=== PATIENT | female | born 1955 | race Hispanic/Latino ===

== ENCOUNTER 2016-10-10 07:21 | Emergency (ER) | payer SELFPAY ==
[2016-10-10 07:44] VITALS: TEMP 97.3
--- NOTE | 2016-10-10 07:48 | ED.PDOC ---
History of Present Illness - General Chief Complaint: GI Problem Stated Complaint: N/V/D Time Seen by Provider: 10/10/16 07:47 Information Source: patient, Vital Signs reviewed Exam Limitations: no limitations - History of Present Illness Initial Comments: Caity Villagran 61 y/o female stated that she had nausea,vomiting ,diarrhea starting 4 days ago and no longer having vomiting today Abdominal Pain Onset Location: other - no abdominal pain Pain Radiation: no radiation Quality: other - no abdominal pain Timing/Duration: other - 4 days ago Associated Symptoms: diarrhea, nausea/vomiting Review of Systems - Review of Systems Constitutional: States: no symptoms reported EENTM: States: no symptoms reported Respiratory: States: no symptoms reported Cardiology: States: no symptoms reported Gastrointestinal/Abdominal: States: see HPI Genitourinary: States: no symptoms reported Musculoskeletal: States: no symptoms reported Skin: States: no symptoms reported Neurological: States: no symptoms reported Endocrine: States: no symptoms reported Hematologic/Lymphatic: States: no symptoms reported Past Medical History (General) - Patient Medical History Hx Seizures: No Hx Stroke: No Hx Dementia: No Hx Asthma: Yes Hx of COPD: No Hx Cardiac Disorders: Yes - TN,quadruple bypass Hx Congestive Heart Failure: No Hx Pacemaker: No Hx Hypertension: Yes Hx Thyroid Disease: No Hx Diabetes: Yes Hx Gastroesophageal Reflux: Yes Hx Cancer: No Hx of HIV: No Hx Hepatitis C: No Hx MRSA: No Surgical History: coronary bypass surgery, other - c- section - Vaccination History Hx Tetanus, Diphtheria Vaccination: No Hx Influenza Vaccination: No - never takes Hx Pneumococcal Vaccination: No - Social History Hx Tobacco Use: No Hx Alcohol Use: No Hx Substance Use: No Hx Substance Use Treatment: No Hx Depression: No Hx Physical Abuse: No Hx Emotional Abuse: No - Activities of Daily Living Grooming Ability: Independent Eating (Feeding) Ability: Independent Toileting Ability: Independent - Female History Patient : No Family Medical History - Family History Mother Family History: Unknown Living Status: Hx Family Hypertension: Yes Hx Family Stroke: Yes Hx Family Diabetes: Yes - several family members Hx Family Cancer: Yes - liver,lymphoma,breast-several family members Father Living Status: Hx Family Hypertension: Yes Hx Family Diabetes: Yes Physical Exam - Physical Exam General Appearance: Alert, Comfortable, No apparent distress Eyes, Ears, Nose, Throat Exam: PERRL/EOMI, normal ENT inspection, TMs normal, pharynx normal Neck: non-tender, full range of motion, supple, normal inspection Respiratory: chest non-tender, lungs clear, normal breath sounds, no respiratory distress Cardiovascular/Chest: normal peripheral pulses, regular rate, rhythm, no murmur Peripheral Pulses: No deficit Gastrointestinal/Abdominal: normal bowel sounds, non tender, soft, no organomegaly Back Exam: normal inspection, no CVA tenderness, no vertebral tenderness Extremity: normal range of motion, non-tender, normal inspection, no calf tenderness Neurologic: no motor/sensory deficits, alert, normal mood/affect, oriented x 3 Skin Exam: normal color, warm/dry Lymphatic: no adenopathy Progress - Progress Progress: 10/10/16 08:18 Vital Signs - 8 hr 10/10/16 07:37 Temperature 97.3 F L Pulse Rate [LAC 73 ] Respiratory 20 Rate Blood Pressure 185/95 [LEFT BRACHIAL] O2 Sat by Pulse 98 Oximetry - Results/Orders Results/Orders: 10/10/16 07:49 IV Care:Saline Lock per Protoc QSHIFT Sodium Chloride 0.9% 1000ML [Ns 1000 ml] 1,000 ml IVS ONCE STOOL CULTURE Stat 10/10/16 08:00 EKG STAT Laboratory Results WBC 6.9 K/mm3 (4.8-10.8) 10/10/16 07:57 RBC 4.79 M/mm3 (4.20-5.40) 10/10/16 07:57 Hgb 13.3 gm/dL (12.0-16.0) 10/10/16 07:57 Hct 39.8 % (36.0-47.0) 10/10/16 07:57 MCV 83.2 fl (81.0-99.0) 10/10/16 07:57 MCH 27.7 pg (27.0-31.0) 10/10/16 07:57 MCHC 33.3 g/dL (33.0-37.0) 10/10/16 07:57 RDW 12.7 % (11.5-14.5) 10/10/16 07:57 Plt Count 230 K/mm3 (130-400) 10/10/16 07:57 MPV 9.1 fl (7.40-10.4) 10/10/16 07:57 Absolute Neuts (auto) 4.20 K/uL (1.8-6.8) 10/10/16 07:57 Absolute Lymphs (auto) 1.80 K/uL (1.0-3.4) 10/10/16 07:57 Absolute Monos (auto) 0.50 K/uL (0.2-0.8) 10/10/16 07:57 Absolute Eos (auto) 0.20 K/uL (0.0-0.4) 10/10/16 07:57 Absolute Basos (auto) 0.10 K/uL (0.0-0.1) 10/10/16 07:57 Neutrophils % 61.9 % (42.0-78.0) 10/10/16 07:57 Lymphocytes % 25.9 % (20.0-50.0) 10/10/16 07:57 Monocytes % 7.6 % (2.0-9.0) 10/10/16 07:57 Eosinophils % 3.2 % (1.0-5.0) 10/10/16 07:57 Basophils % 1.4 % (0.0-2.0) 10/10/16 07:57 PT 12.6 SECONDS (9.4-12.5) H 10/10/16 07:57 INR 1.120 10/10/16 07:57 Sodium 136 mmol/L (135-145) 10/10/16 07:57 Potassium 3.7 mmol/L (3.6-5.0) 10/10/16 07:57 Chloride 102 mmol/L (101-111) 10/10/16 07:57 Carbon Dioxide 26 mmol/L (21-31) 10/10/16 07:57 Anion Gap 11.7 (12-18) L 10/10/16 07:57 BUN 18 mg/dL (7-18) 10/10/16 07:57 Creatinine 0.47 mg/dL (0.6-1.3) L 10/10/16 07:57 BUN/Creatinine Ratio 38.3 (10-20) H 10/10/16 07:57 Random Glucose 287 mg/dL (70-105) H 10/10/16 07:57 Serum Osmolality 284.3 mOsm/L (275-295) 10/10/16 07:57 Calcium 9.3 mg/dL (8.4-10.2) 10/10/16 07:57 Total Bilirubin 0.9 mg/dL (0.2-1.0) 10/10/16 07:57 AST 20 IU/L (10-42) 10/10/16 07:57 ALT 18 IU/L (10-60) 10/10/16 07:57 Alkaline Phosphatase 73 IU/L (42-121) 10/10/16 07:57 Serum Total Protein 7.2 gm/dL (6.4-8.2) 10/10/16 07:57 Albumin 3.9 g/dl (3.2-5.5) 10/10/16 07:57 Globulin 3.3 gm/dL (2.3-3.5) 10/10/16 07:57 Albumin/Globulin Ratio 1.2 (1.1-1.9) 10/10/16 07:57 Urine Color Yellow (Yellow) 10/10/16 07:33 Urine Appearance Clear (Clear) 10/10/16 07:33 Urine pH 5.5 (4.5-7.8) 10/10/16 07:33 Ur Specific [place] 1.020 (1.005-1.030) 10/10/16 07:33 Urine Protein Negative mg/dL 10/10/16 07:33 Urine Glucose (UA) >=1000 mg/dL (Negative) H 10/10/16 07:33 Urine Ketones Negative mg/dL (NEGATIVE) 10/10/16 07:33 Urine Blood Trace-intact (Negative) H 10/10/16 07:33 Urine Nitrite Negative 10/10/16 07:33 Urine Bilirubin Negative (NEGATIVE) 10/10/16 07:33 Urine Urobilinogen 0.2 mg/dL (0.2-1.0) 10/10/16 07:33 Ur Leukocyte Esterase Negative (Negative) 10/10/16 07:33 Urine RBC 3-5 /hpf H 10/10/16 07:33 Urine WBC 5-10 /hpf H 10/10/16 07:33 Ur Epithelial Cells 3-5 /hpf 10/10/16 07:33 Urine Bacteria 0 10/10/16 07:33 - EKG/XRAY/CT EKG: Sinus, nonspecific ST T wave Chg Comments: heart rate-70;old infarct ant. wall Departure - Departure Clinical Impression: Diarrhea Nausea & vomiting Qualifiers: Vomiting type: unspecified Vomiting Intractability: non-intractable Qualified Code(s): R11.2 - Nausea with vomiting, unspecified Time of Disposition: 08:44 Disposition: Discharge to Home or Self Care Condition: Fair Departure Forms: ED Discharge - Pt. Copy, Patient Portal Self Enrollment Instructions: Diarrhea, DI for Nausea -- Adult, Probiotics May Decrease Intensity and Duration of Diarrhea Due to Infection, Nausea and Vomiting-Adult Diet: low fat, low cholesterol, other - AVOID GREASY ,SPICY,DAIRY FOODS UNTIL BETTER Referrals: Karol Moore NP [Primary Care Provider] - 1-2 Weeks Prescriptions: Promethazine Tab [Phenergan Tablet] 25 mg PO .Q4H PRN #14 tab PRN Reason: Abdominal Cramping Home Medications: Ambulatory Orders Metformin HCl 1,000 mg PO BID #0 07/10/14 PARoxetine HCL [Paxil] 20 mg PO DAILY 07/21/15 Carvedilol [Coreg] 12.5 mg PO BID 09/28/15 Lisinopril 2.5 mg PO DAILY 09/28/15 Warfarin Sodium [Coumadin] 5 mg PO DAILY 09/28/15 Aspirin [Aspirin Adult Low Dose] 81 mg PO DAILY 10/05/15 Ferrous Sulfate 650 mg PO BID 10/05/15 Human Insulin Aspart [Novolog] 5 unit SC AC 10/05/15 Insulin Detemir [Levemir] 28 unit SUBCU BEDTIME 10/05/15 Omeprazole [Prilosec] 40 mg PO DAILY 10/05/15 Promethazine Tab [Phenergan Tablet] 25 mg PO .Q4H PRN #14 tab 10/10/16 Additional Instructions: Return to emergency room as needed;Follow up with primary md 10/16/2016 Call for appointment
[2016-10-10] MEDS ORDERED: SODIUM CHLORIDE 0.9% 1000ML 1,000 ML IVS ONE (07:49)
[2016-10-10] MEDS ORDERED: KETOROLAC TROMETHAMINE INJ 30 MG/ML VIAL IV ONE (08:11)
[2016-10-10] MEDS ORDERED: ONDANSETRON INJ 4 MG/2 ML VIAL IV ONE (08:11)
[2016-10-10 08:30] VITALS: O2SAT 97
[2016-10-10] MEDS ORDERED: INSULIN, REG.(HUMAN) 100 U/ML VIAL IV ONE (08:36)
[2016-10-10 09:05] VITALS: BP 168/70
== END 2016-10-10 08:58 | disposition home or self-care (01) ==
LOC: ER 07:21
DX: R11.2 Nausea with vomiting, unspecified (principal); R19.7 Diarrhea, unspecified; I25.2 Old myocardial infarction; Z95.1 Presence of aortocoronary bypass graft; I10 Essential (primary) hypertension; E11.9 Type 2 diabetes mellitus without complications; K21.9 Gastro-esophageal reflux disease without esophagitis
CPT/HCPCS: 36415; 80053; 81001; 85025; 85610; 93005; J1885; J2405; J7030

== ENCOUNTER 2017-04-21 05:44 | Emergency (ER) | payer SELFPAY ==
[2017-04-21 06:36] VITALS: TEMP 97.2
--- NOTE | 2017-04-21 06:46 | ED.PDOC ---
History of Present Illness - General Source: patient Exam Limitations: no limitations - History of Present Illness Comments: THIS PATIENT COMES TO THE ED WITH A TWO WEEK HX OF NASAL AND CHEST CONGESTION ASSOCIATED WITH DYSPNEA AND A NON PRODUCTIVE COUGH. SHE HAS ALSO HAD SOME CHEST PRESSURE. TWO YEARS AGO SHE HAD A HEART ATTACK AND THEN HAD BYPASS SURGERY. 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 Timing/Duration: week Cough Quality/Degree: dry cough Possible Cause: no prior episodes Improving Factors: nothing Worsening Factors: nothing Associated Symptoms: denies symptoms Respiratory Risk Factors: no cause identified <Rodriguez Alejandro - Last Filed: 04/21/17 06:39> <Teto Jarquin - Last Filed: 04/21/17 08:21> - General Chief Complaint: Respiratory Problem Stated Complaint: cough congestion x 1 week Time Seen by Provider: 04/21/17 06:38 - History of Present Illness Allergies/Adverse Reactions: Allergies NO KNOWN ALLERGY Allergy (Verified 04/21/17 06:12) Home Medications: Ambulatory Orders Metformin HCl 1,000 mg PO BID #0 07/10/14 PARoxetine HCL [Paxil] 20 mg PO DAILY 07/21/15 Carvedilol [Coreg] 12.5 mg PO BID 09/28/15 Lisinopril 2.5 mg PO DAILY 09/28/15 Warfarin Sodium [Coumadin] 5 mg PO DAILY 09/28/15 Aspirin [Aspirin Adult Low Dose] 81 mg PO DAILY 10/05/15 Ferrous Sulfate 650 mg PO BID 10/05/15 Human Insulin Aspart [Novolog] 5 unit SC AC 10/05/15 Insulin Detemir [Levemir] 28 unit SUBCU BEDTIME 10/05/15 Omeprazole [Prilosec] 40 mg PO DAILY 10/05/15 Promethazine Tab [Phenergan Tablet] 25 mg PO .Q4H PRN #14 tab 10/10/16 Review of Systems - Review of Systems Constitutional: States: malaise EENTM: States: nose congestion Respiratory: States: cough, short of breath Cardiology: States: chest pain Gastrointestinal/Abdominal: States: no symptoms reported Genitourinary: States: no symptoms reported Musculoskeletal: States: no symptoms reported Skin: States: no symptoms reported Neurological: States: no symptoms reported Endocrine: States: no symptoms reported Hematologic/Lymphatic: States: no symptoms reported All other Systems: Reviewed and Negative <Rodriguez Alejandro - Last Filed: 04/21/17 06:39> Past Medical History (General) - Patient Medical History Hx Seizures: Yes Hx Stroke: No Hx Dementia: No Hx Asthma: Yes Hx of COPD: No Hx Cardiac Disorders: Yes Hx Congestive Heart Failure: No Hx Pacemaker: No Hx Hypertension: Yes Hx Thyroid Disease: No Hx Diabetes: Yes Hx Gastroesophageal Reflux: No Hx Renal Disease: No Hx Cancer: No Hx of HIV: No Hx Hepatitis C: No Hx MRSA: No Surgical History: coronary bypass surgery, Hysterectomy, other - Vaccination History Hx Tetanus, Diphtheria Vaccination: No Hx Influenza Vaccination: No Hx Pneumococcal Vaccination: No - Social History Hx Tobacco Use: No Hx Alcohol Use: No Hx Substance Use: No Hx Substance Use Treatment: No Hx Depression: No Hx Physical Abuse: No Hx Emotional Abuse: No - Female History Patient : No - Triage Comment ED Triage Comment: Presents to Er -=-POV--AMB-- C/O cough, congestion, NPC, and sinus problems x 1 week. States has had 4 watery stools in last 8 hours also. States feels pressure to chest. <Rodriguez Alejandro - Last Filed: 04/21/17 06:39> Family Medical History - Family History Mother Family History: Unknown Living Status: Hx Family Hypertension: Yes Hx Family Stroke: Yes Hx Family Diabetes: Yes - several family members Hx Family Cancer: Yes - liver,lymphoma,breast-several family members Father Living Status: Hx Family Hypertension: Yes Hx Family Diabetes: Yes <Rodriguez Alejandro - Last Filed: 04/21/17 06:39> Physical Exam - Physical Exam General Appearance: Alert, Anxious, Well Developed, Well Groomed Eye Exam: bilateral normal ENT Exam: normal ENT inspection, hearing grossly normal, pharynx normal Neck: non-tender, full range of motion, supple, normal inspection Respiratory: lungs clear, normal breath sounds, no respiratory distress, no accessory muscle use Cardiovascular/Chest: normal peripheral pulses, no edema, no gallop, no JVD, no murmur Gastrointestinal/Abdominal: normal bowel sounds, non tender, no organomegaly, no pulsatile mass Extremity: normal range of motion, non-tender, normal inspection, no pedal edema , no calf tenderness Neurologic: no motor/sensory deficits, normal mood/affect, oriented x 3 Skin Exam: normal color, warm/dry Lymphatic: no adenopathy <JavonRodriguez davidson - Last Filed: 04/21/17 06:39> Progress - Results/Orders Results/Orders: HR OF 65, TN INTERVAL OF 162, QRS OF 100, QTC OF 434, AXIS OF 20 DEGREES. IMPRESSION: SINUS RHYTHM, EVIDENCE OF AN INFERIOR AND AND ANTERIOR WALL NV, AGE UNDETERMINED. <JavonRodriguez davidson - Last Filed: 04/21/17 06:39> - Progress Progress: 04/21/17 08:19 The patient is a 62-year-old female presenting to the emergency room with a week 's worth of symptoms of cough and congestion. The patient is no longer taking her Coumadin. No fevers. Mostly runny nose and a mild sore throat and a mild clearing cough. No history of any asthma. Her main concern is for pneumonia. There is no evidence of pneumonia on the x-ray. Flu swab is negative. Lab work otherwise looks reassuring besides mild hyperglycemia. The patient is stable at this time. Tylenol and Motrin can be alternated to control symptoms along with some Mucinex as needed. She needs to keep herself well-hydrated. She should follow up with her primary care doctor early next week. Diagnosis is common cold. <Teto Jarquin - Last Filed: 04/21/17 08:21> Departure <JavonRodriguez - Last Filed: 04/21/17 06:39> - Departure Diet: diabetic diet Activity: increase activity as tolerated <Teto Jarquin - Last Filed: 04/21/17 08:21> - Departure Clinical Impression: Common cold Disposition: Discharge to Home or Self Care Condition: Good Departure Forms: ED Discharge - Pt. Copy, Patient Portal Self Enrollment Instructions: DI for Common Cold Referrals: Karol Moore NP [Primary Care Provider] - 1-5 Days Home Medications: Ambulatory Orders Metformin HCl 1,000 mg PO BID #0 07/10/14 PARoxetine HCL [Paxil] 20 mg PO DAILY 07/21/15 Carvedilol [Coreg] 12.5 mg PO BID 09/28/15 Lisinopril 2.5 mg PO DAILY 09/28/15 Warfarin Sodium [Coumadin] 5 mg PO DAILY 09/28/15 Aspirin [Aspirin Adult Low Dose] 81 mg PO DAILY 10/05/15 Ferrous Sulfate 650 mg PO BID 10/05/15 Human Insulin Aspart [Novolog] 5 unit SC AC 10/05/15 Insulin Detemir [Levemir] 28 unit SUBCU BEDTIME 10/05/15 Omeprazole [Prilosec] 40 mg PO DAILY 10/05/15 Promethazine Tab [Phenergan Tablet] 25 mg PO .Q4H PRN #14 tab 10/10/16 Additional Instructions: the patient is a 62-year-old female presenting with what appears to be a common cold. She needs to keep herself well hydrated. Alternate Tylenol and Motrin to help reduce symptoms. Mucinex can be used as needed to thin secretions and help with the cough. She does need to control her blood sugars well. She should follow up with her primary care doctor early next week. Lab work and x-ray are reassuring here today. The patient reports she is no longer taking her Coumadin.
--- NOTE | 2017-04-21 07:04 | RAD ---
EXAM: Single view chest. INDICATION: Chest pain. COMPARISON: Chest x-ray: 09/28/2015. FINDINGS: Cardiac silhouette: Unremarkable. Anay: Unremarkable. Lobar consolidation: None. Pleural effusion: None. Pneumothorax: None. Other: None. Bones: Unremarkable. Other: None. IMPRESSION: 1. No acute cardiopulmonary process. Electronically signed by: Martin Huerta MD 04/21/2017 7:03 AM [facility] Workstation: [id number]
[2017-04-21 07:53] VITALS: O2SAT 98
[2017-04-21 08:32] VITALS: BP 143/76
== END 2017-04-21 08:33 | disposition home or self-care (01) ==
LOC: ER 05:44
DX: J00 Acute nasopharyngitis [common cold] (principal); J45.909 Unspecified asthma, uncomplicated; E11.9 Type 2 diabetes mellitus without complications; I10 Essential (primary) hypertension; I51.9 Heart disease, unspecified; R56.9 Unspecified convulsions; Z79.4 Long term (current) use of insulin; Z79.82 Long term (current) use of aspirin; Z79.899 Other long term (current) drug therapy; Z95.1 Presence of aortocoronary bypass graft

== ENCOUNTER 2017-10-03 19:36 | Observation (INO) | payer MEDICARE ==
[2017-10-03] MEDS ORDERED: ASPIRIN TABLET 325 MG TAB ONE (19:45)
[2017-10-03] MEDS ORDERED: NITROGLYCERIN 0.4 MG 25 EA TAB SL ONE (19:45)
[2017-10-03] MEDS ORDERED: ASPIRIN TABLET 325 MG TAB PO ONE (19:54)
--- NOTE | 2017-10-03 20:07 | RAD ---
EXAM DESCRIPTION: Single view of the chest CLINICAL HISTORY: chest discomfort COMPARISON: 04/21/2017 FINDINGS: Single frontal view of the chest. Prior median sternotomy. Heart is not enlarged. Leads overlie the chest. Atherosclerotic calcification of the aortic arch. Low lung volumes. No consolidation, pneumothorax, or pleural effusion. No displaced rib fractures identified. Upper abdominal soft tissues are unremarkable. IMPRESSION: 1. No acute pulmonary process identified. Electronically signed by: Martin Chen 10/03/2017 8:05 PM CDT
[2017-10-03] MEDS ORDERED: MAGNESIUM SULFATE PREMIX 2GM 2 GM in PREMIX BAG 1 BAG IVPB ONE (20:36)
[2017-10-03] MEDS ORDERED: POTASSIUM CHLORIDE ELIXIR 20 MEQ/15 ML UD PO ONE (20:36)
[2017-10-03] MEDS ORDERED: MAGNESIUM SULFATE PREMIX 2GM 50 ML IVPB ONE (20:49)
[2017-10-03] MEDS ORDERED: PANTOPRAZOLE SODIUM IV 40 MG VIAL IV ONE (20:54)
[2017-10-03] MEDS ORDERED: ALUM & MAG HYDROX-SIMETHICONE 30 ML, LIDOCAINE VISCOUS 2% 15 ML PO ONE ×2 (20:54)
[2017-10-03] MEDS ORDERED: METOPROLOL TARTRATE 25 MG TAB PO ONE (20:54)
[2017-10-03] MEDS ORDERED: SUCRALFATE 1 GM/10 ML 1 GM UD PO ONE (20:54)
[2017-10-03] MEDS ORDERED: LIDOCAINE HCL 2% (MOUTH-THROAT) 15 ML UD ONE (21:00)
[2017-10-03] MEDS ORDERED: ALUM & MAG HYDROX-SIMETHICONE 30 ML UD ONE (21:00)
--- NOTE | 2017-10-03 21:00 | ED.PDOC ---
History of Present Illness - General Chief Complaint: Chest Pain/[place] Stated Complaint: chest pain shortness of breath Time Seen by Provider: 10/03/17 19:40 Source: patient Exam Limitations: no limitations - History of Present Illness Initial Comments: the patient is a 62-year-old female presenting to the emergency room for some chest discomfort this been going on for the better part of 3 days. Activity does not seem to make it worse. She apparently did start Cymbalta and an anti- inflammatory sometime within the last couple of weeks. She denies taking any medications for her stomach though she was on some before in the past. No vomiting. She has had some mild nausea. She does have some mild epigastric discomfort. No diarrhea. No syncope or near-syncope. No vision changes no changes. At its worst her chest discomforts about a 3/10. Timing/Duration: unsure Severity: mild Improving Factors: nothing Worsening Factors: nothing Associated Symptoms: chest pain Allergies/Adverse Reactions: Allergies NO KNOWN ALLERGY Allergy (Verified 10/03/17 19:48) Home Medications: Ambulatory Orders Metformin HCl 1,000 mg PO BID #0 07/10/14 PARoxetine HCL [Paxil] 20 mg PO DAILY 07/21/15 Carvedilol [Coreg] 12.5 mg PO BID 09/28/15 Lisinopril 2.5 mg PO DAILY 09/28/15 Warfarin Sodium [Coumadin] 5 mg PO DAILY 09/28/15 Aspirin [Aspirin Adult Low Dose] 81 mg PO DAILY 10/05/15 Ferrous Sulfate 650 mg PO BID 10/05/15 Human Insulin Aspart [Novolog] 5 unit SC AC 10/05/15 Insulin Detemir [Levemir] 28 unit SUBCU BEDTIME 10/05/15 Omeprazole [Prilosec] 40 mg PO DAILY 10/05/15 Promethazine Tab [Phenergan Tablet] 25 mg PO .Q4H PRN #14 tab 10/10/16 Review of Systems - Review of Systems Constitutional: States: no symptoms reported EENTM: States: no symptoms reported Respiratory: States: no symptoms reported Cardiology: States: chest pain Gastrointestinal/Abdominal: States: abdominal pain, nausea Genitourinary: States: no symptoms reported Musculoskeletal: States: no symptoms reported Skin: States: no symptoms reported Neurological: States: anxiety Endocrine: States: no symptoms reported All other Systems: No Change from Baseline Past Medical History (General) - Patient Medical History Hx Seizures: Yes Hx Stroke: No Hx Dementia: No Hx Asthma: Yes Hx of COPD: No Hx Cardiac Disorders: Yes Hx Congestive Heart Failure: No Hx Pacemaker: No Hx Hypertension: Yes Hx Thyroid Disease: No Hx Diabetes: Yes Hx Gastroesophageal Reflux: No Hx Renal Disease: No Hx Cancer: No Hx of HIV: No Hx Hepatitis C: No Hx MRSA: No Surgical History: coronary bypass surgery, Hysterectomy - Vaccination History Hx Tetanus, Diphtheria Vaccination: No Hx Influenza Vaccination: No Hx Pneumococcal Vaccination: No - Social History Hx Tobacco Use: No Hx Alcohol Use: No Hx Substance Use: No Hx Substance Use Treatment: No Hx Depression: No Hx Physical Abuse: No Hx Emotional Abuse: No - Female History Patient : No Family Medical History - Family History Mother Family History: Unknown Living Status: Hx Family Hypertension: Yes Hx Family Stroke: Yes Hx Family Diabetes: Yes - several family members Hx Family Cancer: Yes - liver,lymphoma,breast-several family members Father Living Status: Hx Family Hypertension: Yes Hx Family Diabetes: Yes Physical Exam - Physical Exam General Appearance: Alert, Anxious Eye Exam: bilateral normal Ears, Nose, Throat: hearing grossly normal, normal ENT inspection, normal pharynx Neck: supple, normal inspection Respiratory: lungs clear, normal breath sounds, no respiratory distress, no accessory muscle use Cardiovascular/Chest: normal peripheral pulses, regular rate, rhythm, no edema Peripheral Pulses: radial,right: 2+, radial,left: 2+, dorsalis pedis,right: 2+, dorsalis pedis,left: 2+ Gastrointestinal/Abdominal: non tender - ild to moderate epigastric discomfortbut no rebound or peritoneal signs., soft Rectal Exam: deferred Back Exam: normal inspection, no CVA tenderness Extremity: non-tender, normal inspection, no pedal edema, normal capillary refill 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 Progress - Progress Progress: 10/03/17 21:01 the patient is a 62-year-old female with a coronary artery disease history presenting to emergency room secondary to chest and epigastric discomfort. I believe this is most likely due to gastritis and esophagitis related to her starting an anti-inflammatory and the Cymbalta without her stomach medications. She does however have a significant coronary artery history so the patient will be placed in the hospital for an extended rule out. The patient has been given aspirin. She has been given Protonix Carafate and GI cocktail. Discomfort is minimal at the current time. Heart enzymes are negative for the first set. The patient is a diabetic so this will need to befollowed as well. She also could possibly stand some mild hydration over the next 24 hours given the concentration of her urine. Admit for further monitoring. - Results/Orders Results/Orders: Laboratory Tests 10/03/17 10/03/17 10/03/17 20:01 20:01 20:01 WBC 7.0 RBC 4.50 Hgb 12.8 Hct 37.2 MCV 82.5 MCH 28.4 MCHC 34.3 RDW 12.8 Plt Count 223 MPV 9.1 Absolute Neuts (auto) 4.20 Absolute Lymphs (auto) 2.00 Absolute Monos (auto) 0.50 Absolute Eos (auto) 0.20 Absolute Basos (auto) 0.10 Neutrophils % 60.8 Lymphocytes % 29.1 Monocytes % 6.6 Eosinophils % 2.7 Basophils % 0.8 PT 11.7 INR 1.010 PTT (SP) 28.5 D-Dimer, Quantitative < 230 Sodium 142 Potassium 3.4 L Chloride 107 Carbon Dioxide 28 Anion Gap 10.4 L BUN 16 Creatinine 0.51 L BUN/Creatinine Ratio 31.4 H Random Glucose 101 Serum Osmolality 284.4 Calcium 8.7 Magnesium 1.6 L Total Bilirubin 0.6 AST 15 ALT 19 Alkaline Phosphatase 69 Creatine Kinase 116 CK-MB (CK-2) 3.8 CK-MB (CK-2) % Not Reportable Troponin I < 0.02 B-Natriuretic Peptide 167.0 H Serum Total Protein 6.8 Albumin 3.8 Globulin 3.0 Albumin/Globulin Ratio 1.3 Urine Color Urine Appearance Urine pH Ur Specific [place] Urine Protein Urine Glucose (UA) Urine Ketones Urine Blood Urine Nitrite Urine Bilirubin Urine Urobilinogen Ur Leukocyte Esterase Urine RBC Urine WBC Ur Epithelial Cells Urine Bacteria Urine Mucus 10/03/17 20:16 WBC RBC Hgb Hct MCV MCH MCHC RDW Plt Count MPV Absolute Neuts (auto) Absolute Lymphs (auto) Absolute Monos (auto) Absolute Eos (auto) Absolute Basos (auto) Neutrophils % Lymphocytes % Monocytes % Eosinophils % Basophils % PT INR PTT (SP) D-Dimer, Quantitative Sodium Potassium Chloride Carbon Dioxide Anion Gap BUN Creatinine BUN/Creatinine Ratio Random Glucose Serum Osmolality Calcium Magnesium Total Bilirubin AST ALT Alkaline Phosphatase Creatine Kinase CK-MB (CK-2) CK-MB (CK-2) % Troponin I B-Natriuretic Peptide Serum Total Protein Albumin Globulin Albumin/Globulin Ratio Urine Color Yellow Urine Appearance Clear Urine pH 5.5 Ur Specific [place] >= 1.030 Urine Protein Negative Urine Glucose (UA) 250 H Urine Ketones Negative Urine Blood Negative Urine Nitrite Negative Urine Bilirubin Negative Urine Urobilinogen 1.0 Ur Leukocyte Esterase Negative Urine RBC 0 Urine WBC 3-5 H Ur Epithelial Cells 5-10 Urine Bacteria 1+ Urine Mucus Moderate EKG shows normal sinus rhythm or actually sinus bradycardia at a rate of 59 bpm. Normal QT interval. There are old Q waves in inferior leads. There is old poor R-wave progression in anterior leads. Possible mild left atrial dilation. chest x-ray shows no significant infiltrate mass or pneumothorax. Departure - Departure Clinical Impression: Atypical chest pain Disposition: Admit Patient Departure Forms: ED Discharge - Pt. Copy, Patient Portal Self Enrollment Referrals: Karol Moore NP [Primary Care Provider] - 1-2 Weeks Home Medications: Ambulatory Orders Metformin HCl 1,000 mg PO BID #0 07/10/14 PARoxetine HCL [Paxil] 20 mg PO DAILY 07/21/15 Carvedilol [Coreg] 12.5 mg PO BID 09/28/15 Lisinopril 2.5 mg PO DAILY 09/28/15 Warfarin Sodium [Coumadin] 5 mg PO DAILY 09/28/15 Aspirin [Aspirin Adult Low Dose] 81 mg PO DAILY 10/05/15 Ferrous Sulfate 650 mg PO BID 10/05/15 Human Insulin Aspart [Novolog] 5 unit SC AC 10/05/15 Insulin Detemir [Levemir] 28 unit SUBCU BEDTIME 10/05/15 Omeprazole [Prilosec] 40 mg PO DAILY 10/05/15 Promethazine Tab [Phenergan Tablet] 25 mg PO .Q4H PRN #14 tab 10/10/16 Decision To Admit - Decistion To Admit Decision to Admit Reason: Medical Nature Decision to Admit Date: 10/03/17 Decision to Admit Time: 21:03
[2017-10-03] MEDS ORDERED: SODIUM CHLORIDE 0.9% (FLUSH) 10 ML SYG IV PRN (23:06)
[2017-10-03] MEDS ORDERED: MORPHINE SULFATE INJ 10 MG/ML VIAL IV PRN (23:06)
[2017-10-03] MEDS ORDERED: ACETAMINOPHEN 325 MG TAB PO PRN (23:06)
[2017-10-03] MEDS ORDERED: NITROGLYCERIN 0.4 MG 25 EA TAB SL PRN (23:06)
[2017-10-03] MEDS ORDERED: ALUMINUM & MAGNESIUM HYDROXIDE 30 ML UD PO PRN (23:12)
[2017-10-03] MEDS ORDERED: DEXTROSE 50% 25 GM/50 ML SYG IV PRN (23:13)
[2017-10-03] MEDS ORDERED: GLUCAGON INJ 1 MG VIAL SUBCU PRN (23:13)
[2017-10-03] MEDS ORDERED: PANTOPRAZOLE SODIUM IV 40 MG VIAL IV SCH (23:30)
[2017-10-03] MEDS ORDERED: IV SET AND CAP CHANGE INJ INJ SCH (23:30)
[2017-10-04 06:50] VITALS: O2SAT 97
[2017-10-04] MEDS ORDERED: INSULIN DETEMIR 100 UNITS/ML PEN SUBCU SCH (07:00)
[2017-10-04] MEDS: INSULIN LISPRO 100 UNITS/ML PEN SUBCU SCH ×2 (08:08→12:25)
[2017-10-04] MEDS ORDERED: LISINOPRIL 5 MG TAB PO SCH (09:00)
[2017-10-04] MEDS ORDERED: SODIUM CHLORIDE 0.9% (FLUSH) 10 ML SYG IV SCH (09:00)
[2017-10-04] MEDS ORDERED: DULoxetine HCL 20 MG CAP PO SCH (09:00)
[2017-10-04] MEDS ORDERED: ASPIRIN TABLET 325 MG TAB PO SCH (09:00)
[2017-10-04] MEDS ORDERED: ENOXAPARIN SODIUM 40 MG/0.4 ML SYG SUBCU SCH (09:00)
[2017-10-04] MEDS ORDERED: metFORMIN HCL 500 MG TAB PO SCH (09:00)
[2017-10-04] MEDS ORDERED: CARVEDILOL 12.5 MG TAB PO SCH (09:00)
[2017-10-04 10:35] VITALS: BP 156/77; TEMP 98.6
[2017-10-04] MEDS ORDERED: traMADol HCL 50 MG TAB PO ONE (11:08)
--- NOTE | 2017-10-04 11:46 | SSS ---
SUPERVISING PHYSICIAN: Agustin Brady MD DATE OF ADMISSION: 10/03/17 DATE OF DISCHARGE: 10/04/17 DISCHARGE DIAGNOSIS: 1. Chest pain, rule out myocardial infarction. The patient has had negative serial cardiac enzymes. 2. Epigastric abdominal pain. 3. Bradycardia. 4. Diabetes mellitus, type 2. 5. Hypertension. HISTORY OF PRESENT ILLNESS: This is a 62-year-old female patient who presented to the Emergency Room after she had three days of midsternal chest pain. She actually said it moved around from the center of her chest across the top of her abdomen. About two weeks ago, she saw a provider that gave her some anti- inflammatories and in the Emergency Room, her initial set of cardiac enzymes were negative, but she was slightly hypertensive with her initial blood pressure being 190/92. She received some metoprolol and it came down to 161/77 and then 145/75. Her heart rate initially started in the 60s and got as low as 48 and now has remained in the upper 40s and low 50s. Her CBC was basically within normal limits. Her chemistries are basically within normal limits with the exception of her potassium was slightly low at 3.4. Her magnesium was 1.6 and BNP was 167. She was given some magnesium sulfate in the Emergency Room as well as a GI slider. She was also given nitroglycerin. The Emergency Room reported that the GI slider seemed to help her symptoms. She does have a history of a myocardial infarction in 2014 as well as four vessel coronary artery bypass graft. I was called for admission to the hospital. PAST MEDICAL HISTORY: 1. Myocardial infarction in 2014. 2. Hypertension. 3. Diabetes mellitus, type 2, on insulin therapy. 4. Anxiety and depression. 5. Osteoarthritis. 6. Pulmonary embolism in 2016. PAST SURGICAL HISTORY: 1. Four vessel coronary artery bypass graft in 2014. 2. Hysterectomy. 3. times 2. 4. Achilles tendon repair after rupture as a teenager. OUTPATIENT MEDICATIONS: 1. Unknown NSAID. 2. NovoLog insulin. 3. Coreg. 4. Aspirin 81 mg. 5. Cymbalta. 6. Levemir. 7. Lisinopril. 8. Metformin. ALLERGIES: NO KNOWN DRUG ALLERGIES. SOCIAL HISTORY: She is . She has two children. She denies smoking, ETOH or illicit drug use. FAMILY HISTORY: Mother positive for blood clots and strokes. Father unknown health history. She recently had a sister diagnosed with colon cancer. REVIEW OF SYSTEMS: GENERAL: Negative for fever, fatigue or weight loss. HEENT: Negative for sinus symptoms, ear pain, vision changes or sore throat. RESPIRATORY: Negative for wheezing, coughing or shortness of breath. CARDIAC: Positive for chest pain in the Emergency Room, none at this time and none since admission to the hospital. Negative for palpitations or tachycardia. GASTROINTESTINAL: Positive for epigastric pain, but negative for nausea, vomiting, diarrhea, constipation. GENITOURINARY: Negative for hematuria, dysuria or polyuria. NEUROLOGIC: Positive for mild headache. Negative for dizziness or seizures. PHYSICAL EXAMINATION: GENERAL: This is a 62-year-old female patient sitting up in her hospital bed. She is in no acute distress. HEENT: Normocephalic, atraumatic. Pupils are equal and reactive. Oropharynx is clear. NECK: Supple without mass. No discernible jugular venous distention. RESPIRATORY: Essentially clear to auscultation bilaterally. CHEST: There is equal rise and fall of the chest with inspiration and expiration. CARDIOVASCULAR: Bradycardic rate, regular rhythm. GASTROINTESTINAL: Abdomen is soft, nondistended, nontender. Bowel sounds are positive. EXTREMITIES: No cyanosis, clubbing or edema. NEUROLOGIC: Awake, alert and oriented times three. LABORATORY: Labs this morning show CBC and electrolytes are basically within normal limits. Triglycerides 116, cholesterol 214, LDL 153.7, HDL 45. Urinalysis shows urine glucose of 250 with 3 to 5 urine WBCs. Coagulation studies showed PT 11.7, INR 1.0, PTT 28.5, D-dimer less than 230. Chest x-ray shows no acute pulmonary process identified. HOSPITAL COURSE: The patient was placed in observation. Serial cardiac enzymes were completed. They were all negative. She has had no further complaints of chest pain. She has had a mild headache. She received tramadol for that and was effective. She will be discharged home today. DISCHARGE PLAN: The patient will be discharged home in stable condition. She is to resume her previous activity. She will be sent home on a 48 hour Holter monitor from the hospital due to her bradycardia. I have recommended she stop the NSAID until she can be evaluated by her primary care physician. I sent her home with some tramadol for her arthritis pain until she can be evaluated. I have also prescribed some Protonix as well as nitroglycerin. She is to resume her previous medications except the NSAID. She has a followup appointment with Dr. Fiore on 10/08/17 at 3:45 PM. She is to return to the hospital or followup with Dr. Fiore' office for any further problems or complications. Dr. Brady is the collaborating physician and available for consultation. #[id number] [facility]
[2017-10-04] MEDS ORDERED: PANTOPRAZOLE SODIUM TAB 40 MG PO SCH (16:30)
== END 2017-10-04 12:40 | disposition home or self-care (01) ==
LOC: ER 19:36 → MS 21:53
PROVIDERS: ADMIT Nurse Practitioner Acute Care; ATTEND Nurse Practitioner Acute Care
DX: E83.42 Hypomagnesemia (principal); E87.6 Hypokalemia; R07.89 Other chest pain; R10.13 Epigastric pain; R00.1 Bradycardia, unspecified; E11.9 Type 2 diabetes mellitus without complications; I10 Essential (primary) hypertension; R06.02 Shortness of breath; R51 Headache; F41.9 Anxiety disorder, unspecified; F32.9 Major depressive disorder, single episode, unspecified; I25.10 Atherosclerotic heart disease of native coronary artery without angina pectoris; I25.2 Old myocardial infarction; Z95.1 Presence of aortocoronary bypass graft; Z79.4 Long term (current) use of insulin; Z79.01 Long term (current) use of anticoagulants; Z79.82 Long term (current) use of aspirin; Z79.899 Other long term (current) drug therapy; Z86.711 Personal history of pulmonary embolism
CPT/HCPCS: 96372; 96376; J1650; J3475; J1815; 85379; 82553 ×3; 80053 ×2; 82948 ×2; 80061; 36415 ×5; 81001; 85025 ×2; 82550 ×3; 83735 ×2; 85730; 85610; 84484 ×3; 83880; 36416 ×2; 71045; 94760 ×3; 93225; 99285; 93005 ×3; G0378; 96365; 96375

== ENCOUNTER → 2017-10-29 | Outpatient (CLI) | payer MEDICARE | LOC: GMAL 14:30 | PROVIDERS: ATTEND Family Medicine | DX: R79.89 Other specified abnormal findings of blood chemistry (principal) ==

== ENCOUNTER 2017-11-02 07:51 | Emergency (ER) | payer MEDICARE ==
--- NOTE | 2017-11-02 08:16 | ED.PDOC ---
History of Present Illness - General Chief Complaint: Abdominal Pain Stated Complaint: Left lower abdominal discomfort Time Seen by Provider: 11/02/17 07:59 Information Source: patient Exam Limitations: no limitations - History of Present Illness Initial Comments: Zahraa Villagran 62 y/o female stated that she had LLQ constant stabbing pain since the last 4 days and had seen her primary Md at onset of her symptoms and was diagnosed with diverticulitis but no medication prescribed;also had dry cough the last 4 days denies fever,N/V,but started having loose stools today able to eat but aggravates her LLq pain symptoms. Abdominal Pain Onset Location: LLQ Pain Radiation: no radiation Quality: moderate, steady Timing/Duration: other - see hpi Improving Factors: nothing Worsening Factors: eating Associated Symptoms: other - cough non productive;loose stools Review of Systems - Review of Systems Constitutional: States: no symptoms reported EENTM: States: no symptoms reported Respiratory: States: see HPI, cough Cardiology: States: no symptoms reported Gastrointestinal/Abdominal: States: see HPI, abdominal pain Genitourinary: States: no symptoms reported Musculoskeletal: States: no symptoms reported Skin: States: no symptoms reported Neurological: States: no symptoms reported Endocrine: States: no symptoms reported All other Systems: Reviewed and Negative, No Change from Baseline Past Medical History (General) - Patient Medical History Hx Seizures: No Hx Stroke: No Hx Dementia: No Hx Asthma: Yes - uses inhaler Hx of COPD: No Hx Cardiac Disorders: Yes Hx Congestive Heart Failure: No Hx Pacemaker: No Hx Hypertension: Yes Hx Thyroid Disease: No Hx Diabetes: Yes Hx Gastroesophageal Reflux: Yes Hx Renal Disease: No Hx Cancer: No Hx of HIV: No Hx Hepatitis C: No Hx MRSA: No Surgical History: coronary bypass surgery, other - hysterectomy;No COLONOSCOPY - Vaccination History Hx Tetanus, Diphtheria Vaccination: No Hx Influenza Vaccination: No Hx Pneumococcal Vaccination: No - Social History Hx Tobacco Use: No Hx Alcohol Use: No Hx Substance Use: No Hx Substance Use Treatment: No Hx Depression: No Hx Physical Abuse: No Hx Emotional Abuse: No - Activities of Daily Living Grooming Ability: Independent Eating (Feeding) Ability: Independent Toileting Ability: Independent - Female History Patient : No Family Medical History - Family History Mother Family History: Unknown Living Status: Age at (years of age): 54 Cause of : heart problems, dm Hx Family Hypertension: Yes Hx Family Stroke: Yes Hx Family Diabetes: Yes - several family members Hx Family Cancer: Yes - liver,lymphoma,breast-several family members Father Living Status: Age at (years of age): 45 Cause of : pneumonia Hx Family Hypertension: Yes Hx Family Diabetes: Yes Physical Exam - Physical Exam General Appearance: Alert, Comfortable, No apparent distress Eyes, Ears, Nose, Throat Exam: PERRL/EOMI, normal ENT inspection Neck: non-tender, supple, normal inspection Respiratory: chest non-tender, lungs clear, normal breath sounds, no respiratory distress Cardiovascular/Chest: normal peripheral pulses, regular rate, rhythm, no murmur Peripheral Pulses: No deficit Gastrointestinal/Abdominal: normal bowel sounds, soft, tenderness - LLQ ;no peritoneal signs Back Exam: no CVA tenderness, no vertebral tenderness Extremity: no pedal edema, no calf tenderness Neurologic: alert, oriented x 3 Lymphatic: no adenopathy Progress - Progress Progress: 11/02/17 08:23 Vital Signs - 8 hr 11/02/17 07:57 Pulse Rate [ 61 Left Radial] Respiratory 20 Rate Blood Pressure 147/77 [Right Arm] O2 Sat by Pulse 97 Oximetry 11/02/17 09:41 Discuss all test result with patient and told her nothing definite came out abnormal causing her LLQ pain complaints advised to follow up with her regular Md for colonoscopy and further work up needed that could be done outpatient. - Results/Orders Results/Orders: 11/02/17 08:17 IV Care:Saline Lock per Protoc QSHIFT CARDIAC PANEL,ER Stat HEPATIC FUNCTION PANEL Stat Laboratory Results - last 24 hr 11/02/17 11/02/17 11/02/17 08:17 08:35 08:39 WBC 6.3 RBC 4.60 Hgb 13.1 Hct 38.2 MCV 83.0 MCH 28.4 MCHC 34.4 RDW 12.9 Plt Count 246 MPV 8.8 Absolute Neuts (auto) 3.90 Absolute Lymphs (auto) 1.70 Absolute Monos (auto) 0.50 Absolute Eos (auto) 0.20 Absolute Basos (auto) 0.10 Neutrophils % 62.7 Lymphocytes % 26.5 Monocytes % 7.2 Eosinophils % 2.7 Basophils % 0.9 PT 10.9 INR 0.940 PTT (SP) 27.5 Sodium 136 Potassium 4.2 Chloride 99 L Carbon Dioxide 29 Anion Gap 12.2 BUN 12 Creatinine 0.48 L BUN/Creatinine Ratio 25.0 H Random Glucose 230 H Serum Osmolality 279.0 Lactic Acid 1.7 Calcium 9.6 Magnesium 1.5 L Total Bilirubin 0.4 Direct Bilirubin < 0.1 Indirect Bilirubin 0.3 AST 15 ALT 17 Alkaline Phosphatase 80 Creatine Kinase 127 Serum Total Protein 7.1 Albumin 3.9 Urine Color Yellow Urine Appearance Clear Urine pH 5.5 Ur Specific [place] 1.025 Urine Protein Negative Urine Glucose (UA) >=1000 H Urine Ketones Negative Urine Blood Negative Urine Nitrite Negative Urine Bilirubin Negative Urine Urobilinogen 0.2 Ur Leukocyte Esterase Negative Urine RBC 0 Urine WBC 0-1 Ur Epithelial Cells 3-5 Urine Bacteria Rare Urine Mucus Small - EKG/XRAY/CT XRAY: chest - no acute abnormalities noted CT Ordered: Yes - Abd/Pelvis-no diverticulitis or/appendicitis no other acute abnormalities Departure - Departure Clinical Impression: Cough headache Abdominal pain Qualifiers: Abdominal location: left lower quadrant Qualified Code(s): R10.32 - Left lower quadrant pain Time of Disposition: 09:45 Disposition: Discharge to Home or Self Care Condition: Fair Departure Forms: ED Discharge - Pt. Copy, Patient Portal Self Enrollment Instructions: DI for Abdominal Pain-Adult Referrals: Carroll Fiore III, MD [Primary Care Provider] - 1-2 Weeks Prescriptions: Tramadol HCl 50 mg PO Q6HRS PRN #20 tab PRN Reason: Pain Gabapentin 300 mg PO BID #30 cap Home Medications: Ambulatory Orders Metformin HCl 1,000 mg PO DAILY #0 07/10/14 Carvedilol [Coreg] 12.5 mg PO BID 09/28/15 Lisinopril 10 mg PO DAILY 09/28/15 Aspirin [Aspirin Adult Low Dose] 81 mg PO DAILY 10/05/15 Human Insulin Aspart [Novolog] 5 unit SC AC PRN 10/05/15 Insulin Detemir [Levemir Pen] 35 unit SUBCU ACBK 10/05/15 DULoxetine HCL [Cymbalta] 60 mg PO DAILY 10/03/17 Nitroglycerin 0.4 mg Tab [Nitrostat] 1 ea SL Q5MIN PRN #1 bttl 10/04/17 Pantoprazole Tablet [Protonix] 40 mg PO DAILY@30 #30 tab 10/04/17 Gabapentin 300 mg PO BID #30 cap 11/02/17 Tramadol HCl 50 mg PO Q6HRS PRN #20 tab 11/02/17 Additional Instructions: Follow up with primary Md October 2017
[2017-11-02] MEDS ORDERED: PROMETHAZINE HCL INJ 25 MG/ML VIAL IM ONE (08:17)
[2017-11-02] MEDS ORDERED: MORPHINE SULFATE INJ 10 MG/ML VIAL IV ONE (08:17)
[2017-11-02] MEDS ORDERED: SODIUM CHLORIDE 0.9% 500ML 500 ML IVS ONE (08:19)
--- NOTE | 2017-11-02 08:34 | RAD ---
EXAM DESCRIPTION: Chest,1 View CLINICAL HISTORY: cough FINDINGS/ IMPRESSION: Prior median sternotomy. Heart size normal. No pulmonary edema, alveolar infiltrate or effusion No pneumothorax. No acute bony abnormality Electronically signed by: Basilio Ashford MD 11/02/2017 8:32 AM CDT
--- NOTE | 2017-11-02 09:10 | CT ---
EXAM DESCRIPTION: Abdomen/Pelvis w/o Contrast: Computed Tomography. CLINICAL HISTORY: pain. Left lower quadrant. Prior hysterectomy COMPARISON: CT chest 09/03/2015. TECHNIQUE: Spiral-axial scans 5.0 mm intervals through the abdomen and pelvis without oral or IV contrast. Coronal and sagittal 2.0 mm reconstructions. Total Exam DLP: 1323 mGy-cm. This exam was performed according to our departmental CT dose-optimization program which includes automated exposure control, adjustment of the mA and/or kV according to patient size and/or use of iterative reconstruction technique; to reduce radiation dose to as low as reasonably achievable (ALARA). FINDINGS: Lung bases and pleura: Scarring posterior inferior left pleura. Coronary artery calcifications. Liver, stomach, spleen, and adrenal glands: Stomach minimally distended by fluid and fluid. Liver and other solid organs unremarkable. Pancreas, Gallbladder, and Ducts: Gallbladder contracted. Duct and pancreas negative. Kidneys and Ureters: Unremarkable. Mesentery: No free air and no ascites. No fatty stranding or fascial thickening. Aorta: Mild/moderate atherosclerotic calcification proximally to distally. Small Bowel: Negative. Terminal Ileum/Cecum: Normal caliber. Normal caliber of the appendix containing gas. No surrounding fatty stranding. Colon: Scattered fecal matter with no distention. No significant diverticulosis or complications.. Pelvic Organs: Vaginal cuff present. Soft tissue mass or calcifications. No free fluid. Small urinary bladder. Spine and Bony Pelvis: Gas density in the bilateral SI joints. Hypertrophic changes on the acetabula and pubic symphysis. Contrast density in the L3-4 L5-S1 and L1-2 discs. Possible foraminal stenosis at multiple levels bilaterally. Spondylosis lower thoracic spine. Abdominal Wall/Back Soft Tissues: Bilateral fatty inguinal hernias not containing bowel. Diastases of the umbilicus but not containing bowel. IMPRESSION: 1. No free fluid or free air in the abdomen or pelvis. No organ enlargement or soft tissue masses. No inflammatory changes in the mesentery. 2. Normal CT appearance of the appendix. No diverticulitis. Ovaries have been removed. 3. Spondylosis at multiple levels of the lumbar spine and all included segments of the inferior thoracic spine. Multiple levels of significant foraminal narrowing in the lumbar spine. Electronically signed by: Bennie Rahman MD 11/02/2017 9:09 AM CDT
[2017-11-02 10:01] VITALS: BP 145/75; O2SAT 98
== END 2017-11-02 10:35 | disposition home or self-care (01) ==
LOC: ER 07:51
DX: R10.32 Left lower quadrant pain (principal); R05 Cough; R51 Headache; J45.909 Unspecified asthma, uncomplicated; I10 Essential (primary) hypertension; E11.9 Type 2 diabetes mellitus without complications; R19.7 Diarrhea, unspecified; K21.9 Gastro-esophageal reflux disease without esophagitis; Z95.1 Presence of aortocoronary bypass graft; Z79.899 Other long term (current) drug therapy
CPT/HCPCS: 36415; 71045; 74176; 80048; 80076; 81001; 82550; 82553; 83605; 84484; 85025; 85610; 85730; J2270; J2550; J7040

== ENCOUNTER 2017-11-12 06:36 | Emergency (ER) | payer MEDICARE ==
[2017-11-12] MEDS ORDERED: MORPHINE SULFATE INJ 10 MG/ML VIAL IV ONE (06:48)
[2017-11-12] MEDS ORDERED: ONDANSETRON INJ 4 MG/2 ML VIAL IV ONE (06:50)
--- NOTE | 2017-11-12 06:57 | ED.PDOC ---
History of Present Illness - General Information Source: patient, Vital Signs reviewed Exam Limitations: no limitations Additional Information: 62 YEAR OLD HERE FOR EVALUATION OF ABDOMINAL PAIN IN THE LEFT LOWER QUADRANT INTERMITTENT FOR 2 WEEKS RADIATING TO THE BACK SHE HAS NO FEVER CHILLS NO CHANGE IN BOWEL HABITS NO BLOOD OR MUCOUS IN STOOLS BOWEL HABITS NORMAL NO HEMATURIA OR DYSURIA WAS SEEN SEEN HERE ON THE October CT ABD DONE BUT NO SIGNIFICANT FINDINGS SHE HAS TYPE II DM SP CABAG 2014 - History of Present Illness Abdominal Pain Onset Location: LUQ Pain Radiation: back Quality: moderate Improving Factors: nothing Associated Symptoms: headache <Que Costa - Last Filed: 11/12/17 07:01> <Lori Luevano - Last Filed: 11/12/17 10:08> - General Chief Complaint: Abdominal Pain Stated Complaint: left lower abd pain Time Seen by Provider: 11/12/17 06:53 Review of Systems - Review of Systems Constitutional: States: no symptoms reported EENTM: States: no symptoms reported Respiratory: States: no symptoms reported Cardiology: States: no symptoms reported Gastrointestinal/Abdominal: States: see HPI Genitourinary: States: no symptoms reported Musculoskeletal: States: no symptoms reported Skin: States: no symptoms reported Neurological: States: no symptoms reported Hematologic/Lymphatic: States: no symptoms reported <Que Costa - Jad Filed: 11/12/17 07:01> Past Medical History (General) - Patient Medical History Hx Seizures: No Hx Stroke: No Hx Dementia: No Hx Asthma: Yes Hx of COPD: No Hx Cardiac Disorders: Yes Hx Congestive Heart Failure: No Hx Pacemaker: No Hx Hypertension: Yes Hx Thyroid Disease: No Hx Diabetes: Yes Hx Gastroesophageal Reflux: Yes Hx Renal Disease: No Hx Cancer: No Hx of HIV: No Hx Hepatitis C: No Hx MRSA: No Surgical History: coronary bypass surgery - Vaccination History Hx Tetanus, Diphtheria Vaccination: No Hx Influenza Vaccination: No Hx Pneumococcal Vaccination: No Immunizations Up to Date: Yes - Social History Hx Tobacco Use: No Hx Alcohol Use: No Hx Substance Use: No Hx Substance Use Treatment: No Hx Depression: No Hx Physical Abuse: No Hx Emotional Abuse: No - Female History Patient is a Female of Child Bearing Age (10 -59 yrs old): No Patient : No <Que Costa - Last Filed: 11/12/17 07:01> Family Medical History - Family History Mother Family History: Unknown Living Status: Age at (years of age): 54 Cause of : heart problems, dm Hx Family Hypertension: Yes Hx Family Stroke: Yes Hx Family Diabetes: Yes - several family members Hx Family Cancer: Yes - liver,lymphoma,breast-several family members Father Living Status: Age at (years of age): 45 Cause of : pneumonia Hx Family Hypertension: Yes Hx Family Diabetes: Yes <Que Costa - Last Filed: 11/12/17 07:01> Physical Exam - Physical Exam General Appearance: Alert, Obese Eyes, Ears, Nose, Throat Exam: PERRL/EOMI, normal ENT inspection, TMs normal, pharynx normal Neck: non-tender, full range of motion, supple, normal inspection Respiratory: chest non-tender, lungs clear, normal breath sounds, no respiratory distress, no accessory muscle use Cardiovascular/Chest: normal peripheral pulses, regular rate, rhythm, no edema, no gallop, no JVD, no murmur Gastrointestinal/Abdominal: normal bowel sounds, soft, other - MILD TENDER LLQ NO SIGNS OF PERITONITIS Back Exam: normal inspection, no CVA tenderness <Que Costa - Last Filed: 11/12/17 07:01> Progress - Progress Progress: 11/12/17 07:48 PT REPORTS SOME IMPROVEMENT IN PAIN AFTER IV MORPHINE. PT REMAINS TENDER IN THE LLQ. LAB FINDINGS DISCUSSED, WILL ORDER CT ABD. 11/12/17 09:23 PT RESTING COMFORTABLY, CT FINDINGS DISCUSSED. RECOMMENDED FOLLOW UP WITH PCP/ GI FOR COLONOSCOPY IF SYMPTOMS PERSIST. - Results/Orders Results/Orders: Laboratory Tests 11/12/17 11/12/17 11/12/17 06:53 06:53 06:53 WBC 7.6 RBC 4.97 Hgb 13.8 Hct 41.8 MCV 84.1 MCH 27.7 MCHC 33.1 RDW 13.1 Plt Count 269 MPV 8.8 Absolute Neuts (auto) 4.40 Absolute Lymphs (auto) 2.50 Absolute Monos (auto) 0.50 Absolute Eos (auto) 0.20 Absolute Basos (auto) 0.10 Neutrophils % 57.5 Lymphocytes % 32.7 Monocytes % 6.1 Eosinophils % 2.5 Basophils % 1.2 Sodium 138 Potassium 4.6 Chloride 100 L Carbon Dioxide 30 Anion Gap 12.6 BUN 11 Creatinine < 0.40 L BUN/Creatinine Ratio 27.0 H Random Glucose 149 H Serum Osmolality 277.9 Calcium 9.4 Total Bilirubin 0.5 AST 20 ALT 19 Alkaline Phosphatase 82 Serum Total Protein 7.5 Albumin 4.2 Globulin 3.3 Albumin/Globulin Ratio 1.3 Urine Color Yellow Urine Appearance Clear Urine pH 5.5 Ur Specific Lesage 1.025 Urine Protein Negative Urine Glucose (UA) Negative Urine Ketones Negative Urine Blood Negative Urine Nitrite Negative Urine Bilirubin Negative Urine Urobilinogen 0.2 Ur Leukocyte Esterase Negative Urine RBC 0 Urine WBC 1-3 Ur Epithelial Cells 5-10 Urine Bacteria Rare - EKG/XRAY/CT CT: abd/pel: no acute findings as per rad CT Ordered: Yes CT Interpretation Call Back: No <Lori Luevano - Last Filed: 11/12/17 10:08> Departure <Que Costa - Last Filed: 11/12/17 07:01> - Departure Time of Disposition: 09:20 <Lori Luevano - Last Filed: 11/12/17 10:08> - Departure Clinical Impression: Abdominal tenderness of left lower quadrant Disposition: Discharge to Home or Self Care Condition: Good Departure Forms: ED Discharge - Pt. Copy, Patient Portal Self Enrollment Instructions: DI for Abdominal Pain-Adult Referrals: Carroll Fiore III, MD [Primary Care Provider] - 1-2 Weeks Prescriptions: Acetaminophen W/ Codeine [Tylenol W/ CODEINE #3] 1 ea PO Q4HR PRN #24 PRN Reason: Pain Home Medications: Ambulatory Orders Metformin HCl 1,000 mg PO DAILY #0 07/10/14 Carvedilol [Coreg] 12.5 mg PO BID 09/28/15 Lisinopril 10 mg PO DAILY 09/28/15 Aspirin [Aspirin Adult Low Dose] 81 mg PO DAILY 10/05/15 Human Insulin Aspart [Novolog] 5 unit SC AC PRN 10/05/15 Insulin Detemir [Levemir Pen] 35 unit SUBCU ACBK 10/05/15 DULoxetine HCL [Cymbalta] 60 mg PO DAILY 10/03/17 Nitroglycerin 0.4 mg Tab [Nitrostat] 1 ea SL Q5MIN PRN #1 bttl 10/04/17 Pantoprazole Tablet [Protonix] 40 mg PO DAILY@0630 #30 tab 10/04/17 Gabapentin 300 mg PO BID #30 cap 11/02/17 Tramadol HCl 50 mg PO Q6HRS PRN #20 tab 11/02/17 Acetaminophen W/ Codeine [Tylenol W/ CODEINE #3] 1 ea PO Q4HR PRN #24 11/12/17
[2017-11-12] MEDS ORDERED: ACETAMINOPHEN 500 MG TAB PO ONE (08:35)
--- NOTE | 2017-11-12 09:16 | CT ---
EXAM DESCRIPTION: Abdomen/Pelvis w/Contrast: Computed Tomography. CLINICAL HISTORY: WORSENING LLQ ABD PAIN COMPARISON: CT abdomen and pelvis 11/02/2017. TECHNIQUE: Spiral-axial scans at 5.0 mm intervals through the abdomen and pelvis, after nonionic IV contrast without oral contrast. Coronal and sagittal 2.0 mm reconstructions, on delayed protocol. Delayed scans, liver through the pelvis. Axial-spiral 5mm. No adverse reactions. Total Exam DLP: 2774.46 mGy-cm. This exam was performed according to our departmental dose-optimization program which includes automated exposure control, adjustment of the mA and/or kV according to patient size and/or use of iterative reconstruction technique; to reduce radiation dose to as low as reasonably achievable (ALARA). FINDINGS: Lung bases and pleura: Scarring inferior left lower lobe. Coronary artery calcifications. Liver, Stomach, Spleen, Adrenal Glands: Fatty density of the liver. Long axis of the right lobe 16 cm. Stomach and other solid organs are negative. Pancreas, Gallbladder, Ducts: Gallbladder visualized. Pancreas and ducts unremarkable. Kidneys and Ureters: Negative. Mesentery: No stranding or fascial thickening, particularly left lower quadrant. No free air or free fluid or ascites. Aorta: Minimal atherosclerotic calcification and intimal wall thickening. No aneurysm. Small Bowel: Negative. Terminal Ileum/Cecum: Unremarkable. Appendix normal caliber. Normal density of the surrounding fat. Colon: No diverticula are noted. No wall thickening. Normal density of the surrounding fat particularly in the left lower quadrant. Pelvic Organs: Vaginal cuff is negative. Calcifications and surgical clips. No fluid in the cul-de-sac. Bilateral ureteral contrast jets in the urinary bladder with no radiodense stones. Spine and Bony Pelvis: Disc space narrowing and disc bulging L5-S1 and L1 to posterior. Multiple levels of bilateral foraminal narrowing also seen in the thoracic spine. Pubic symphysis arthrosis. Air density in the bilateral SI joints. Minimal hypertrophic changes in the right acetabulum with bilateral pelvic and femoral enthesopathy. Abdominal Wall/Back Soft Tissues: Small midline lower pelvic anterior ventral hernia less than 1 cm wide. No fatty edema. Also fatty right inguinal hernia. No fatty edema. These hernias do not contain bowel. IMPRESSION: 1. No inflammatory changes in the peritoneum or retroperitoneum in the left lower quadrant of the abdomen. No abdominal masses. No diverticulitis or free fluid. 2. Minimal hepatic steatosis, also seen in retrospect on the prior study, and stable. 3. Normal CT appearance of the appendix and other organs and fat and fascia in the right lower quadrant. 4. Spondylosis lumbar and thoracic spine with multiple levels of disc space narrowing and foraminal narrowing. 5. Stable ventral midline ventral hernia in the lower pelvis and right fatty inguinal hernia not containing bowel. Electronically signed by: Bennie Rahman MD 11/12/2017 9:14 AM CDT
[2017-11-12 10:23] VITALS: BP 140/83; TEMP 97.6; O2SAT 98
== END 2017-11-12 10:21 | disposition home or self-care (01) ==
LOC: ER 06:36
DX: R10.32 Left lower quadrant pain (principal); I10 Essential (primary) hypertension; E11.9 Type 2 diabetes mellitus without complications; K21.9 Gastro-esophageal reflux disease without esophagitis; Z79.4 Long term (current) use of insulin; Z79.82 Long term (current) use of aspirin; Z79.84 Long term (current) use of oral hypoglycemic drugs
CPT/HCPCS: 36415; 74177; 80053; 81001; 85025; J2270; J2405

== ENCOUNTER → 2017-11-19 | Outpatient (CLI) | payer MEDICARE ==
--- NOTE | 2017-11-19 08:11 | RAD ---
EXAM DESCRIPTION: Pelvis CLINICAL HISTORY: 62 years Female, PAIN IN LEFT HIP COMPARISON: CT abdomen and pelvis November 12, 2017 FINDINGS: Bones of the pelvic ring appear intact. Intact sacrum. Mild degenerative changes at the SI joints. Advanced degenerative spurring in the lower lumbar spine is seen. Enthesopathy is seen at the anterior superior iliac spines and greater trochanters of the proximal femurs. No proximal femoral fracture. No hip dislocation. Clinical history is pain in the left hip. The left greater trochanter is incompletely covered on this film. Additional x-rays of the left hip may be helpful. IMPRESSION: Negative for fracture or dislocation. Advanced degenerative changes of the lower lumbar spine. Electronically signed by: Wilson Chaney MD 11/19/2017 8:09 AM CDT
--- NOTE | 2017-11-19 09:00 | RAD ---
EXAM DESCRIPTION: Knee,Right Complete CLINICAL HISTORY: 62 years, Female, PAIN IN RIGHT KNEE COMPARISON: None TECHNIQUE: Four views of the right knee FINDINGS: No fracture or dislocation. Bones appear normally mineralized with normal trabecular pattern. Narrowed appearance of medial compartment on frontal view. Prominent medial more than lateral joint line spurring is seen with mild spurring of the tibial spines. There is calcification of the menisci. Lateral view shows normal position of the patella. Moderate posterior patellar spurring with spurring of the anterior femoral trochlea. Small suprapatellar knee joint effusion is present. Normal contour of quadriceps and patellar tendons. No abnormal patellar tilt or subluxation on patellar sunrise view. Prominent spurring around the narrowed patellofemoral joint. IMPRESSION: Degenerative changes as described. Electronically signed by: Wilson Chaney MD 11/19/2017 8:59 AM CDT
== END ==
LOC: RAD 07:37
PROVIDERS: ATTEND Orthopaedic Surgery
DX: M25.561 Pain in right knee (principal); M25.551 Pain in right hip

== ENCOUNTER → 2017-11-27 | Outpatient (CLI) | payer MEDICARE | LOC: LAB.O 09:32 | PROVIDERS: ATTEND Orthopaedic Surgery | DX: Z01.818 Encounter for other preprocedural examination (principal) ==

== ENCOUNTER → 2018-01-09 | Outpatient (CLI) | payer MEDICARE | LOC: GMATM 18:42 | PROVIDERS: ATTEND Nurse Practitioner Family | DX: N94.89 Other specified conditions associated with female genital organs and menstrual cycle (principal); R10.2 Pelvic and perineal pain ==

== ENCOUNTER → 2018-02-14 | Outpatient (CLI) | payer MEDICARE | LOC: GMATM 21:49 | PROVIDERS: ATTEND Nurse Practitioner Family | DX: N39.0 Urinary tract infection, site not specified (principal) ==

== ENCOUNTER 2018-06-06 02:09 | Emergency (ER) | payer MEDICARE, MEDICAID ==
--- NOTE | 2018-06-06 02:23 | ED.PDOC ---
History of Present Illness - General Chief Complaint: ENT Problem Stated Complaint: thinks theres something in left ear Time Seen by Provider: 06/06/18 02:21 Source: patient Exam Limitations: no limitations - History of Present Illness Initial Comments: Caity Villagran 63 y/o female stated that she had onset of dull ache left ear tonight with feeling of fulness;denies trauma to left ear but crying a lot sister recently .Also denies cough but with nasal congestion. Timing/Duration: abrupt - tonight EENT Location: ear (L) Prearrival Treatment: no prearrival treatment Presenting Symptoms: see hpi Improving Factors: nothing Worsening Factors: nothing Associated Symptoms: other - see hpi Allergies/Adverse Reactions: Allergies NO KNOWN ALLERGY Allergy (Verified 06/06/18 02:21) Home Medications: Ambulatory Orders Metformin HCl 1,000 mg PO DAILY #0 07/10/14 Carvedilol [Coreg] 12.5 mg PO BID 09/28/15 Lisinopril 10 mg PO DAILY 09/28/15 Aspirin [Aspirin Adult Low Dose] 81 mg PO DAILY 10/05/15 Human Insulin Aspart [Novolog] 5 unit SC AC PRN 10/05/15 Insulin Detemir [Levemir Pen] 35 unit SUBCU ACBK 10/05/15 DULoxetine HCL [Cymbalta] 60 mg PO DAILY 10/03/17 Nitroglycerin 0.4 mg Tab [Nitrostat] 1 ea SL Q5MIN PRN #1 bttl 10/04/17 Pantoprazole Tablet [Protonix] 40 mg PO DAILY@0630 #30 tab 10/04/17 Gabapentin 300 mg PO BID #30 cap 11/02/17 Tramadol HCl 50 mg PO Q6HRS PRN #20 tab 11/02/17 Acetaminophen W/ Codeine [Tylenol W/ CODEINE #3] 1 ea PO Q4HR PRN #24 11/12/17 Cefuroxime Axetil [Ceftin] 500 mg PO Q12H 7 Days #14 tablet 06/06/18 Review of Systems - Review of Systems Constitutional: States: no symptoms reported EENTM: States: see HPI, ear pain Respiratory: States: no symptoms reported Cardiology: States: no symptoms reported Gastrointestinal/Abdominal: States: no symptoms reported All other Systems: Reviewed and Negative, No Change from Baseline Past Medical History (General) - Patient Medical History Hx Seizures: No Hx Stroke: No Hx Dementia: No Hx Asthma: Yes Hx of COPD: No Hx Cardiac Disorders: Yes Hx Congestive Heart Failure: Yes Hx Pacemaker: No Hx Hypertension: Yes Hx Thyroid Disease: No Hx Diabetes: Yes Hx Gastroesophageal Reflux: Yes Hx Renal Disease: No Hx Cancer: No Hx of HIV: No Hx Hepatitis C: No Hx MRSA: No Surgical History: coronary bypass surgery - Vaccination History Hx Tetanus, Diphtheria Vaccination: No Hx Influenza Vaccination: No Hx Pneumococcal Vaccination: No - Social History Hx Tobacco Use: No Hx Alcohol Use: No Hx Substance Use: No Hx Substance Use Treatment: No Hx Depression: No Hx Physical Abuse: No Hx Emotional Abuse: No - Female History Patient : No Family Medical History - Family History Mother Family History: Unknown Living Status: Age at (years of age): 54 Cause of : heart problems, dm Hx Family Hypertension: Yes Hx Family Stroke: Yes Hx Family Diabetes: Yes - several family members Hx Family Cancer: Yes - liver,lymphoma,breast-several family members Father Living Status: Age at (years of age): 45 Cause of : pneumonia Hx Family Hypertension: Yes Hx Family Diabetes: Yes Physical Exam - Physical Exam General Appearance: Alert, Comfortable, No apparent distress Eye Exam: bilateral normal Ear Exam: right ear: TM normal, left ear: TM red - umbo;fluid level?, bilateral ear: auricle normal, canal normal Nasal Exam: normal inspection Throat Exam: normal mouth inspection, pharynx normal Neck: supple, normal inspection, trachea midline Cardiovascular/Respiratory: regular rate, rhythm, normal peripheral pulses, normal breath sounds Abdominal Exam: non-tender, no organomegaly Neurologic: alert, oriented x 3 Skin Exam: normal color, warm/dry Progress - Progress Progress: 06/06/18 02:37 Vital Signs - 8 hr 06/06/18 02:15 Temperature 97.4 F L Pulse Rate [ 69 monitor] Respiratory 18 Rate Blood Pressure 180/86 [Left Arm] O2 Sat by Pulse 97 Oximetry Departure - Departure Clinical Impression: Otitis media Qualifiers: Otitis media type: unspecified Laterality: left Qualified Code(s): H66.92 - Otitis media, unspecified, left ear Time of Disposition: 02:42 Disposition: Discharge to Home or Self Care Condition: Fair Departure Forms: ED Discharge - Pt. Copy, Patient Portal Self Enrollment Instructions: DI for Ear Pain-Adult Referrals: Carroll Fiore III, MD [Primary Care Provider] - 1-2 Weeks Prescriptions: Cefuroxime Axetil [Ceftin] 500 mg PO Q12H 7 Days #14 tablet Home Medications: Ambulatory Orders Metformin HCl 1,000 mg PO DAILY #0 07/10/14 Carvedilol [Coreg] 12.5 mg PO BID 09/28/15 Lisinopril 10 mg PO DAILY 09/28/15 Aspirin [Aspirin Adult Low Dose] 81 mg PO DAILY 10/05/15 Human Insulin Aspart [Novolog] 5 unit SC AC PRN 10/05/15 Insulin Detemir [Levemir Pen] 35 unit SUBCU ACBK 10/05/15 DULoxetine HCL [Cymbalta] 60 mg PO DAILY 10/03/17 Nitroglycerin 0.4 mg Tab [Nitrostat] 1 ea SL Q5MIN PRN #1 bttl 10/04/17 Pantoprazole Tablet [Protonix] 40 mg PO DAILY@0630 #30 tab 10/04/17 Gabapentin 300 mg PO BID #30 cap 11/02/17 Tramadol HCl 50 mg PO Q6HRS PRN #20 tab 11/02/17 Acetaminophen W/ Codeine [Tylenol W/ CODEINE #3] 1 ea PO Q4HR PRN #24 11/12/17 Cefuroxime Axetil [Ceftin] 500 mg PO Q12H 7 Days #14 tablet 06/06/18 Additional Instructions: Afrin Nose spray 2 sprays each nose am/pm 3 days on 3 days off until better;Take over the counter Zyrtec one tablet daily ;Do not blow your nose;Use over the counter nasal saline rinse as needed for nasal congestion;follow up with you primary MD 10 Jun 2018 for recheck
[2018-06-06 02:31] VITALS: TEMP 97.4; O2SAT 97
[2018-06-06] MEDS: OXYMETAZOLINE NASAL SPRAY 15 ML BTTL BNAS PRN (02:49)
[2018-06-06] MEDS: HYDROCOD/APAP 7.5/325 (ER DISP) #3 TAB PO ONE (02:49)
[2018-06-06] MEDS: CEFUROXIME AXETIL TAB 250 MG TAB PO ONE (02:51)
[2018-06-06] MEDS: CETIRIZINE HCL 10 MG TAB PO ONE (02:51)
[2018-06-06 02:58] VITALS: BP 160/83
== END 2018-06-06 02:58 | disposition home or self-care (01) ==
LOC: ER 02:09
DX: H66.92 Otitis media, unspecified, left ear (principal); J45.909 Unspecified asthma, uncomplicated; I50.9 Heart failure, unspecified; I11.0 Hypertensive heart disease with heart failure; E11.9 Type 2 diabetes mellitus without complications; Z95.1 Presence of aortocoronary bypass graft; Z79.82 Long term (current) use of aspirin; Z79.84 Long term (current) use of oral hypoglycemic drugs; Z79.899 Other long term (current) drug therapy

== ENCOUNTER → 2018-08-13 | Outpatient (CLI) | payer MEDICARE, MEDICAID | LOC: GMAL 17:04 | PROVIDERS: ATTEND Family Medicine | DX: R07.89 Other chest pain (principal) ==

== ENCOUNTER 2018-08-18 19:51 | Emergency (ER) | payer MEDICARE, MEDICAID ==
[2018-08-18] MEDS ORDERED: KETOROLAC TROMETHAMINE INJ 30 MG/ML VIAL IM ONE (20:20)
[2018-08-18] MEDS ORDERED: traMADol HCL 50 MG TAB PO ONE (20:20)
--- NOTE | 2018-08-18 20:23 | ED.PDOC ---
History of Present Illness - General Chief Complaint: Abdominal Pain Time Seen by Provider: 08/18/18 20:14 Source: patient Exam Limitations: no limitations - History of Present Illness Initial Comments: the patient is a 63-year-old Prydeinig female presenting to the emergency room secondary to persistent pain from her diverticulitis. She restarted her Levaquin and metronidazole 2 days ago but the pain has not yet really subsided for her. No nausea vomiting diarrhea or fever. No syncope or near-syncope. Pain is primarily in the left lower quadrant where she has the sigmoid diverticulosis in the past. She has had an colonoscopy in the past to confirm the diverticulosis. She has had several episodes of diverticulitis in the past. Timing/Duration: other - 4 days Severity: moderate Improving Factors: nothing Worsening Factors: nothing Associated Symptoms: denies symptoms Allergies/Adverse Reactions: Allergies NO KNOWN ALLERGY Allergy (Verified 06/06/18 02:21) Home Medications: Ambulatory Orders Metformin HCl 1,000 mg PO DAILY #0 07/10/14 Carvedilol [Coreg] 12.5 mg PO BID 09/28/15 Lisinopril 10 mg PO DAILY 09/28/15 Aspirin [Aspirin Adult Low Dose] 81 mg PO DAILY 10/05/15 Human Insulin Aspart [Novolog] 5 unit SC AC PRN 10/05/15 Insulin Detemir [Levemir Pen] 35 unit SUBCU ACBK 10/05/15 DULoxetine HCL [Cymbalta] 60 mg PO DAILY 10/03/17 Nitroglycerin 0.4 mg Tab [Nitrostat] 1 ea SL Q5MIN PRN #1 bttl 10/04/17 Pantoprazole Tablet [Protonix] 40 mg PO DAILY@0630 #30 tab 10/04/17 Gabapentin 300 mg PO BID #30 cap 11/02/17 Tramadol HCl 50 mg PO Q6HRS PRN #20 tab 11/02/17 Acetaminophen W/ Codeine [Tylenol W/ CODEINE #3] 1 ea PO Q4HR PRN #24 11/12/17 Cefuroxime Axetil [Ceftin] 500 mg PO Q12H 7 Days #14 tablet 06/06/18 Tramadol HCl 50 mg PO Q8HR PRN #20 tab 08/18/18 Review of Systems - Review of Systems Constitutional: States: no symptoms reported EENTM: States: no symptoms reported Respiratory: States: no symptoms reported Cardiology: States: no symptoms reported Gastrointestinal/Abdominal: States: see HPI Genitourinary: States: no symptoms reported Musculoskeletal: States: no symptoms reported Skin: States: no symptoms reported Neurological: States: no symptoms reported Endocrine: States: no symptoms reported All other Systems: No Change from Baseline Past Medical History (General) - Patient Medical History Hx Seizures: No Hx Stroke: No Hx Dementia: No Hx Asthma: Yes Hx of COPD: No Hx Cardiac Disorders: Yes Hx Congestive Heart Failure: Yes Hx Pacemaker: No Hx Hypertension: Yes Hx Thyroid Disease: No Hx Diabetes: Yes Hx Gastroesophageal Reflux: Yes Hx Renal Disease: No Hx Cancer: No Hx of HIV: No Hx Hepatitis C: No Hx MRSA: No - Vaccination History Hx Tetanus, Diphtheria Vaccination: No Hx Influenza Vaccination: No Hx Pneumococcal Vaccination: No - Social History Hx Tobacco Use: No Hx Alcohol Use: No Hx Substance Use: No Hx Substance Use Treatment: No Hx Depression: No Hx Physical Abuse: No Hx Emotional Abuse: No - Female History Patient : No Family Medical History - Family History Mother Family History: Unknown Living Status: Age at (years of age): 54 Cause of : heart problems, dm Hx Family Hypertension: Yes Hx Family Stroke: Yes Hx Family Diabetes: Yes - several family members Hx Family Cancer: Yes - liver,lymphoma,breast-several family members Father Living Status: Age at (years of age): 45 Cause of : pneumonia Hx Family Hypertension: Yes Hx Family Diabetes: Yes Physical Exam - Physical Exam General Appearance: Alert, Comfortable, No apparent distress Eye Exam: bilateral normal Ears, Nose, Throat: hearing grossly normal, normal ENT inspection Neck: full range of motion, supple Respiratory: no respiratory distress, no accessory muscle use Cardiovascular/Chest: normal peripheral pulses, no edema Peripheral Pulses: radial,right: 2+, radial,left: 2+ Gastrointestinal/Abdominal: soft, other - mild to moderate left lower quadrant discomfort palpation. No palpable mass. No obvious peritoneal signs. No rebound. 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 She is already doing the appropriate treatment by restarting her Levaquin and metronidazole. She is only a couple of days into the treatment however and is still having significant discomfort. The patient is given a dose of Toradol and a dose of tramadol here tonight. She will be written for short prescription of tramadol for as needed use over the next few days. She is to increase her fluid intake as well as increase her activity level. Increase fiber intake and avoid constipation. She needs to keep follow-up with her primary care doctor in a couple of days. ER warnings were given for any acute worsening. She does need to maintain good tight control over her blood sugars. Departure - Departure Clinical Impression: Sigmoid diverticulitis Disposition: Discharge to Home or Self Care Condition: Fair Departure Forms: ED Discharge - Pt. Copy, Patient Portal Self Enrollment Instructions: Diverticulitis (DC) Diet: diabetic diet - high-fiber Activity: increase activity as tolerated Referrals: Carroll Fiore III, MD [Primary Care Provider] - 1-2 Weeks Prescriptions: Tramadol HCl 50 mg PO Q8HR PRN #20 tab PRN Reason: Mild To Moderate Pain Home Medications: Ambulatory Orders Metformin HCl 1,000 mg PO DAILY #0 07/10/14 Carvedilol [Coreg] 12.5 mg PO BID 09/28/15 Lisinopril 10 mg PO DAILY 09/28/15 Aspirin [Aspirin Adult Low Dose] 81 mg PO DAILY 10/05/15 Human Insulin Aspart [Novolog] 5 unit SC AC PRN 10/05/15 Insulin Detemir [Levemir Pen] 35 unit SUBCU ACBK 10/05/15 DULoxetine HCL [Cymbalta] 60 mg PO DAILY 10/03/17 Nitroglycerin 0.4 mg Tab [Nitrostat] 1 ea SL Q5MIN PRN #1 bttl 10/04/17 Pantoprazole Tablet [Protonix] 40 mg PO DAILY@0630 #30 tab 10/04/17 Gabapentin 300 mg PO BID #30 cap 11/02/17 Tramadol HCl 50 mg PO Q6HRS PRN #20 tab 11/02/17 Acetaminophen W/ Codeine [Tylenol W/ CODEINE #3] 1 ea PO Q4HR PRN #24 07/16/18 Cefuroxime Axetil [Ceftin] 500 mg PO Q12H 7 Days #14 tablet 06/06/18 Tramadol HCl 50 mg PO Q8HR PRN #20 tab 08/18/18 Additional Instructions: the patient is a 63-year-old female presenting to emergency room secondary to a recurrence of her sigmoid diverticulitis. She is already doing the appropriate treatment by restarting her Levaquin and metronidazole. She is only a couple of days into the treatment however and is still having significant discomfort. The patient is given a dose of Toradol and a dose of tramadol here tonight. She will be written for short prescription of tramadol for as needed use over the next few days. She is to increase her fluid intake as well as increase her activity level. Increase fiber intake and avoid constipation. She needs to keep follow-up with her primary care doctor in a couple of days. ER warnings were given for any acute worsening. She does need to maintain good tight control over her blood sugars.
[2018-08-18 21:08] VITALS: BP 178/82; TEMP 98; O2SAT 98
== END 2018-08-18 20:55 | disposition home or self-care (01) ==
LOC: ER 19:51
DX: K57.32 Diverticulitis of large intestine without perforation or abscess without bleeding (principal); J45.909 Unspecified asthma, uncomplicated; I50.9 Heart failure, unspecified; I11.0 Hypertensive heart disease with heart failure; E11.9 Type 2 diabetes mellitus without complications; K21.9 Gastro-esophageal reflux disease without esophagitis; Z79.899 Other long term (current) drug therapy; Z79.4 Long term (current) use of insulin; Z79.82 Long term (current) use of aspirin

== ENCOUNTER → 2018-11-04 | Outpatient (CLI) | payer MEDICARE, MEDICAID ==
--- NOTE | 2018-11-04 12:13 | CT ---
EXAM DESCRIPTION: Abdomen/Pelvis w/wo Contrast: Computed Tomography. CLINICAL HISTORY: DIVERTICULITIS. Vaginal pain x 2 years. COMPARISON: CT scan abdomen and pelvis with contrast 11/12/2017. TECHNIQUE: Spiral-axial scans at 5 x 5 mm intervals through the abdomen and pelvis before and after Optiray 320 nonionic IV contrast. Water oral contrast. Coronal and sagittal 2.0 mm reconstructions. 5 x 5 mm Delayed helical-axial scans, liver through the pubic symphysis. No adverse reactions. Total Exam DLP 3851.09 mGy - cm. This exam was performed according to our departmental CT dose-optimization program which includes automated exposure control, adjustment of the mA and/or kV according to patient size and/or use of iterative reconstruction technique; to reduce radiation dose to as low as reasonably achievable (ALARA). FINDINGS: Lung bases and pleura: Scarring in the left base stable since the prior study. Liver, Stomach, Spleen, Adrenal Glands: Minimal steatosis of the liver. Long axis of the right lobe 16.7 cm. No focal lesions. Small hiatal hernia. Other solid organs are negative. Pancreas, Gallbladder, Ducts: Unremarkable. Kidneys and Ureters: Negative. Mesentery: Unremarkable. Aorta: Minimal atherosclerotic calcification. Small Bowel: Contains fluid contrast with no distention. Minimal gas but no air-fluid levels. Terminal Ileum/Cecum: Fluid and normal caliber. Distal appendix is slightly thickened measuring 9 mm but no surrounding fluid or fatty stranding. Colon: Minimal fluid. No distention or air-fluid levels. Proximal fecal matter. Minimal redundancy of the sigmoid colon. No inflammatory changes. Pelvic Organs: No free fluid. Vaginal cuff is negative. Ovaries not seen. Spine and Bony Pelvis: Spondylosis and lumbar levoscoliosis. Thoracic spondylosis. Bilateral SI joints containing gas density. Enthesophytes on the greater trochanter of the right hip with calcifications in the distal gluteus tendons. Abdominal Wall/Back Soft Tissues: Increased density in the periumbilical anterior adipose tissues. IMPRESSION: 1. No diverticulitis. Minimal thickening of the distal appendix but no inflammatory changes around the appendix or colon. 2. Steatosis of the liver and borderline enlargement is stable. Small gastric hiatal hernia. 3. Arthropathies in the spine and SI joints. Enthesophytes greater trochanter right femur with calcifications in the distal gluteus tendons. Electronically signed by: Bennie Rahman MD 11/04/2018 12:11 PM CDT
== END ==
LOC: CT 08:47
PROVIDERS: ATTEND Family Medicine
DX: R10.84 Generalized abdominal pain (principal); K76.0 Fatty (change of) liver, not elsewhere classified; K44.9 Diaphragmatic hernia without obstruction or gangrene; M12.88 Other specific arthropathies, not elsewhere classified, other specified site

== ENCOUNTER → 2018-11-12 | Outpatient (CLI) | payer MEDICARE, MEDICAID ==
--- NOTE | 2018-11-13 13:33 | US ---
EXAM DESCRIPTION: Gall Bladder: ULTRASOUND. CLINICAL HISTORY: Epigastric Pain, vomiting COMPARISON: CT scan of the abdomen 11/04/2018. TECHNIQUE: Transabdominal scanning: Fernández-scale and Doppler modes. FINDINGS: Gallbladder: normal size, shape, echogenicity; no intraluminal stones or sludge. No fluid around the gallbladder. No wall thickening. 2.7 mm. Non-tender with transducer pressure. Common bile duct: caliber 6 mm upper normal limits. Liver: Increased echogenicity; contour liver capsule smooth where seen. No fluid around the liver. Intrahepatic biliary ducts normal caliber. Doppler hepatopedal flow portal vein.. Long axis right lobe 16.2 cm. Pancreas: normal size and echogenicity. Duct not seen. Aorta: Not well seen. Right kidney: 11.7 cm long axis. Normal cortical thickness and echogenicity. No hydronephrosis, no echogenic stones, no perirenal fluid. IMPRESSION: Fatty liver but not significantly enlarged. Normal vascular flow direction and normal intrahepatic ducts. Smooth capsule. No focal lesions. No ascites. Common bile duct upper normal limits in size. Gallbladder, pancreas, and right kidney are negative. Electronically signed by: Bennie Rahman MD 11/13/2018 1:31 PM CDT
== END ==
LOC: RAD 14:16
PROVIDERS: ATTEND Surgery
DX: K76.0 Fatty (change of) liver, not elsewhere classified (principal); R11.2 Nausea with vomiting, unspecified

== ENCOUNTER → 2018-11-13 | Outpatient (CLI) | payer MEDICARE, MEDICAID | LOC: GMAHI 10:51 | PROVIDERS: ATTEND Nurse Practitioner Family | DX: M62.81 Muscle weakness (generalized) (principal); I25.118 Atherosclerotic heart disease of native coronary artery with other forms of angina pectoris ==

== ENCOUNTER → 2018-11-19 | Outpatient (CLI) | payer MEDICARE, MEDICAID ==
--- NOTE | 2018-11-19 10:14 | NM ---
EXAM DESCRIPTION: Hepatobiliar w/CCK CLINICAL HISTORY: Right upper quadrant abdominal pain COMPARISON: Ultrasound gallbladder dated November 12, 2018 TECHNIQUE: Routine hepatobiliary scan was performed following intravenous administration of 8.4 mCi technetium 99m Choletec. Slow intravenous infusion of 1.8 mcg of sincalide was used to stimulate gallbladder contraction. FINDINGS: Hepatobiliary scan shows prompt accumulation of the radiopharmaceutical within the liver and excretion into the biliary ductal system, gallbladder, and small bowel. Gallbladder ejection fraction is assessed following slow intravenous infusion of sincalide. Patient reports sharp abdominal pain with sincalide infusion. Minimal gallbladder ejection fraction up to 5% at 10 minutes. IMPRESSION: 1. Visualization of the gallbladder essentially excludes acute cholecystitis. 2. Significantly reduced gallbladder ejection fraction at 5% (normal range is greater than 35%). In the appropriate clinical settings, findings would be compatible with gallbladder dysfunction. 3. Patient reports abdominal pain during gallbladder stimulation phase of the exam with slow sincalide infusion. Electronically signed by: Carroll Jimenez MD 11/19/2018 10:12 AM CDT
== END ==
LOC: NM 08:10
PROVIDERS: ATTEND Family Medicine
DX: R10.11 Right upper quadrant pain (principal)
CPT/HCPCS: 78227; A9537

== ENCOUNTER 2019-01-16 05:34 | Day surgery (SDC) | payer MEDICARE, MEDICAID ==
[2019-01-16] MEDS ORDERED: PROPOFOL 200 MG/20 ML VIAL IV ONE (07:00)
[2019-01-16] MEDS ORDERED: raNITIdine HCL INJ 25 MG/ML VIAL ONE (07:00)
[2019-01-16] MEDS ORDERED: LIDOCAINE 1% 10 ML VIAL INJ ONE (07:00)
[2019-01-16] MEDS ORDERED: DEXAMETHASONE INJ 10 MG/ML VIAL ONE (07:00)
[2019-01-16] MEDS ORDERED: METOCLOPRAMIDE HCL INJ 10 MG/2 ML VIAL ONE (07:00)
[2019-01-16] MEDS ORDERED: LACTATED RINGERS 1,000 ML ONE (07:18)
[2019-01-16] MEDS ORDERED: LACTATED RINGERS 1,000 ML IVS ONE (08:30)
[2019-01-16] MEDS ORDERED: MIDAZOLAM INJ 2 MG/2 ML VIAL ONE (11:58)
[2019-01-16] MEDS ORDERED: fentaNYL CITRATE INJ 50 MCG/ML AMP ONE (11:58)
[2019-01-16] MEDS ORDERED: ROCURONIUM BROMIDE 10 MG/ML VIAL ONE (11:58)
[2019-01-16] MEDS ORDERED: BUPIVACAINE 0.5% W/EPI 30 ML VIAL INJ ONE ×2 (13:01)
[2019-01-16] MEDS ORDERED: SUGAMMADEX SODIUM 200 MG/2 ML VIAL IV ONE (13:20)
[2019-01-16] MEDS: LABETALOL INJ 5 MG/ML VIAL ONE ×2 (13:53→14:03)
--- NOTE | 2019-01-16 14:03 | OP ---
DATE OF PROCEDURE: 01/16/19 PREOPERATIVE DIAGNOSIS: 1. Abdominal pain. 2. Biliary dyskinesia. POSTOPERATIVE DIAGNOSIS: 1. Abdominal pain. 2. Biliary dyskinesia. PROCEDURE: 1. Laparoscopic cholecystectomy with intraoperative cholangiogram. SURGEON: Agustin Crane MD. ANESTHESIA: General and local. FINDINGS: Normal anatomy. Cholangiogram revealed normal anatomy with free flow throughout, no filling defect. COMPLICATIONS: None. ESTIMATED BLOOD LOSS: Minimal. CONDITION: Stable. PLAN: Discharge. SPECIMEN: Gallbladder. INDICATION: As stated. PROCEDURE: General anesthesia was induced. She was prepped and draped in sterile fashion. Marcaine 0.5% with epinephrine was used along the incision sites while maintaining upward traction. A viridiana was made near the base of the umbilicus. Veress needle was introduced. There was free flow of fluid into the peritoneal cavity which was insufflated to an appropriate level with CO2 gas. The 5 mm trocar was placed followed by the camera. There was no evidence of bleeding or bowel injury. There were some inferior adhesions, but out of this site. The patient was positioned and subxiphoid and lateral ports were placed under direct visualization without difficulty. The gallbladder fundus was grasped and retracted superiorly and laterally. The infundibulum was grasped. The infundibular structures were dissected free. The duct and artery were clearly visualized through the triangle of Calot. A clip was placed on the proximal duct and ductotomy performed. The cholangiocatheter was introduced. The cholangiogram revealed the above normal findings. The catheter was removed. Three clips were placed on the distal duct. The duct was ligated and the artery triply ligated as was a small posterior branch. The gallbladder was then dissected off the fossa in toto and removed in the EndoCatch bag. The area was examined. There was no bleeding or bile leak. Irrigated aspirate was clear. Everything looked good. At that point, the subxiphoid fascia was then closed with 0 Vicryl using the suture passer. It was airtight and non-bleeding. The remaining trocars were removed. There was no bleeding from the trocar sites. The wounds were irrigated and closed with Monocryl. Dressings were applied. Total operative time was 23 minutes. The patient was then awakened and taken to Recovery to be discharged. #[id number] [facility]
[2019-01-16] MEDS ORDERED: HYDROcodone 5MG/APAP 325MG 1 EA TAB ONE (14:33)
[2019-01-16 14:44] VITALS: TEMP 98.9
[2019-01-16 15:58] VITALS: BP 134/93; O2SAT 97
--- NOTE | 2019-01-17 14:08 | RAD ---
EXAM DESCRIPTION: Fluoroscopy Up to 1Hr CLINICAL HISTORY: 63 years Female, IOC TECHNIQUE: Intraoperative fluoroscopy was performed for intraoperative cholangiogram. FINDINGS: A total of 2 provided images demonstrate contrast within the biliary system with passage into the second portion of the duodenum.. Fluoroscopy time: 6 secs IMPRESSION: Intraoperative fluoroscopy was performed for intraoperative cholangiogram. Electronically signed by: Norma Garcia MD 01/17/2019 2:07 PM CDT
== END 2019-01-16 15:50 | disposition home or self-care (01) ==
LOC: AMB 05:34
PROVIDERS: ATTEND Surgery
DX: K81.1 Chronic cholecystitis (principal); K66.0 Peritoneal adhesions (postprocedural) (postinfection); E11.9 Type 2 diabetes mellitus without complications; Z95.1 Presence of aortocoronary bypass graft; Z86.718 Personal history of other venous thrombosis and embolism
CPT/HCPCS: 00790; 36416; 47563; 76000; 82948; J1100; J2250; J2765; J2780; J3010; J3490; J7120

== ENCOUNTER 2019-04-03 18:33 | Emergency (ER) | payer MEDICARE, MEDICAID ==
[2019-04-03] MEDS ORDERED: MORPHINE SULFATE INJ 10 MG/ML VIAL IV ONE (18:41)
[2019-04-03] MEDS ORDERED: ASPIRIN (CHEWABLE) 81 MG TAB PO ONE (18:41)
--- NOTE | 2019-04-03 18:46 | ED.PDOC ---
History of Present Illness - General Chief Complaint: Respiratory Problem Time Seen by Provider: 04/03/19 18:34 - History of Present Illness Initial Comments: 64 F +pmh including OH with 4 vessel CABG presents to ED c/o progressive substernal CP radiating to back with associated SOB that is present at rest and worse with exertion. Pt informs she has been treated for URI with antibiotics for several weeks by her PCP but she continues to get worse. Today the radiation to her back, headache, and continued SOB concerned her due to similarities with her prior OH. She does endorse intermittent diarrhea. She currently denies dizziness/lightheadedness, abd pain, n/v, f/c. Pt is otherwise without further symptoms, complaints. Allergies/Adverse Reactions: Allergies NO KNOWN ALLERGY Allergy (Verified 08/18/18 21:08) Home Medications: Ambulatory Orders Aspirin [Aspirin Adult Low Dose] 81 mg PO DAILY 10/05/15 Insulin Detemir [Levemir Pen] 30 unit SUBCU ACBK 10/05/15 Nitroglycerin 0.4 mg Tab [Nitrostat] 1 ea SL Q5MIN PRN #1 bttl 10/04/17 Tramadol HCl 50 mg PO Q8HR PRN #20 tab 08/18/18 Albuterol Sulfate [Proair Hfa] 2 puff INH Q6H PRN 11/26/18 Alprazolam 1 tablet PO PRN PRN 11/26/18 Atorvastatin Calcium [Lipitor] 20 mg PO DAILY 11/26/18 Buspirone HCl 15 mg PO BID 11/26/18 Diclofenac Sodium [Voltaren] 75 mg PO DAILY 11/26/18 Dicyclomine HCl [Dicyclomine Hydrochloride] 20 mg PO TID 11/26/18 Fluconazole 1 tablet PO DAILY 11/26/18 Metoprolol Succinate [Toprol Xl] 25 mg PO BID 11/26/18 Ondansetron [Zuplenz] 4 mg PO PRN PRN 11/26/18 Human Insulin Aspart [Novolog] 10 units SC DAILY 01/14/19 Review of Systems - Review of Systems Constitutional: States: other - generalized fatigue. Denies: chills, diaphoresis, fever EENTM: Denies: blurred vision, nose congestion Respiratory: States: cough, short of breath Cardiology: States: chest pain. Denies: edema, palpitations, syncope Gastrointestinal/Abdominal: States: diarrhea. Denies: abdominal pain, constipation, nausea, vomiting Genitourinary: Denies: dysuria, frequency Musculoskeletal: States: back pain. Denies: neck pain Skin: Denies: change in color, rash Neurological: States: headache, other - no dizziness/lightheadedness Hematologic/Lymphatic: Denies: blood clots Past Medical History (General) - Patient Medical History Hx Seizures: No Hx Stroke: No Hx Dementia: No Hx Asthma: Yes Hx of COPD: No Hx Cardiac Disorders: Yes Hx Congestive Heart Failure: No Hx Pacemaker: No Hx Hypertension: Yes Hx Thyroid Disease: No Hx Diabetes: Yes - fsbs 188 Hx Gastroesophageal Reflux: Yes Hx Renal Disease: No Hx Cancer: No Hx of HIV: No Hx Hepatitis C: No Hx MRSA: No - Vaccination History Hx Tetanus, Diphtheria Vaccination: No Hx Influenza Vaccination: No Hx Pneumococcal Vaccination: No - Social History Hx Tobacco Use: No Hx Alcohol Use: No Hx Substance Use: No Hx Substance Use Treatment: No Hx Depression: No Hx Physical Abuse: No Hx Emotional Abuse: No - Female History Patient : No Family Medical History - Family History Mother Family History: Unknown Living Status: Age at (years of age): 54 Cause of : heart problems, dm Hx Family Hypertension: Yes Hx Family Stroke: Yes Hx Family Diabetes: Yes - several family members Hx Family Cancer: Yes - liver,lymphoma,breast-several family members Father Living Status: Age at (years of age): 45 Cause of : pneumonia Hx Family Hypertension: Yes Hx Family Diabetes: Yes Physical Exam - Physical Exam General Appearance: Alert, Anxious, Comfortable, No apparent distress Eyes, Ears, Nose, Throat Exam: PERRL/EOMI, other - no scleral icterus, moist mucous membranes Neck: full range of motion, supple, other - no JVD Respiratory: lungs clear, normal breath sounds, no respiratory distress, no accessory muscle use, other - no wheezing, rales, rhonchi Cardiovascular/Chest: normal peripheral pulses, regular rate, rhythm, no edema, no JVD, no murmur Peripheral Pulses: radial,right: 2+ - symmetric, radial,left: 2+ - symmetric Gastrointestinal/Abdominal: normal bowel sounds, non tender, soft, no pulsatile mass, other - no abdominal bruit Extremity: normal inspection, no pedal edema Neurologic: alert, normal mood/affect, oriented x 3 Skin Exam: normal color, warm/dry, other - no rash Progress - Progress Progress: Presents with concern for ACS vs unlikely PE (WELLS score 0) vs anxiety. I will evaluate labs, CXR, provide appropriate pharmacotherapy as indicated, and continue to monitor/reassess. Heart Score 5. 8 Rechecked pt. VSS with improved SBP 150, NAD. Discussed lab and imaging results. Pt informs SOB is worse when sleeping and she wakes up gasping for air; I discussed likely YAAKOV with her. She also informs her CP and SOB are likely anxiety because her son ~6 months ago, the holidays have been difficulty, she is raising her son's children, and battling the mother who has drug problems. I will provide pt with Ativan in ED and reassess prior to discharge home. PMPAware reviewed. Last Alprazolam rx on 03/26/19 qty 23 and 03/04/19 qty 23. Pt averaging approximately 46 tabs of alprazolam 0.5mg monthly. 2010 Rechecked pt. She is feeling better with ativan. We have discussed her si tuation more. She now is endorsing h/o PE and is not on any anticoagulants. I will perform d-dimer on pt then discuss admission with her. We have discussed heart score along with risk/benefits of admission vs alternative of d/c home. 2208 Rechecked pt. NAD, VSS. Pain has completely resolved and she states she is feeling much better. I have notified of negative CT imaging and that we will repeat troponin and EKG. Pt agrees with plan. 2246 Rechecked pt. NAD, VSS, and remains asymptomatic. We have again discussed heart score along with risk/benefits of admission vs alternative of d/c home. Pt prefers discharge home at this time and is feeling much better and states she has to take care of her grandson and son. ED return precautions given. Diagnosis of anxiety, nonspecific chest pain, h/o cabg, fatty liver, thyroid lobe enlargement, and likely YAAKOV have been discussed. Pt instructed to f/u with PCP tomorrow, provided with education. Pt voices understanding, agrees with plan, and all questions answered. 04/03/19 22:51 - Results/Orders Results/Orders: EKG read @1839: NSR @ 80, nl axis, mild QRS prolongation, RI and QTc wnl, nonspecific ST/T-wave changes. No STEMI. No sign of pericarditis, pericardial effusion, PE/right-heart strain. Repeat EKG read @2219: Sinus bradycardia @ 59, nl axis, mild QRS prolongation, RI and QTc wnl, nonspecific ST/T-wave changes. No STEMI. No change from prior EKG. Laboratory Tests 04/03/19 04/03/19 04/03/19 18:50 18:50 18:50 WBC 8.8 RBC 5.25 Hgb 15.0 Hct 44.5 MCV 84.7 MCH 28.6 MCHC 33.8 RDW 12.2 Plt Count 287 MPV 9.0 Absolute Neuts (auto) 5.30 Absolute Lymphs (auto) 2.70 Absolute Monos (auto) 0.60 Absolute Eos (auto) 0.20 Absolute Basos (auto) 0.10 Neutrophils % 59.6 Lymphocytes % 30.3 Monocytes % 6.9 Eosinophils % 2.1 Basophils % 1.1 D-Dimer, Quantitative Sodium 137 Potassium 3.7 Chloride 102 Carbon Dioxide 25 Anion Gap 13.7 BUN 17 Creatinine 0.47 L BUN/Creatinine Ratio 36.2 H Random Glucose 207 H Serum Osmolality 281.4 Calcium 9.7 Total Bilirubin 0.8 AST 21 ALT 25 Alkaline Phosphatase 91 Troponin I < 0.02 Serum Total Protein 7.3 Albumin 4.2 Globulin 3.1 Albumin/Globulin Ratio 1.4 Lipase 52 H Urine Color Urine Appearance Urine pH Ur Specific [place] Urine Protein Urine Glucose (UA) Urine Ketones Urine Blood Urine Nitrite Urine Bilirubin Urine Urobilinogen Ur Leukocyte Esterase Urine RBC Urine WBC Ur Epithelial Cells Urine Bacteria 04/03/19 04/03/19 04/03/19 18:50 19:03 22:14 WBC RBC Hgb Hct MCV MCH MCHC RDW Plt Count MPV Absolute Neuts (auto) Absolute Lymphs (auto) Absolute Monos (auto) Absolute Eos (auto) Absolute Basos (auto) Neutrophils % Lymphocytes % Monocytes % Eosinophils % Basophils % D-Dimer, Quantitative 0.56 H* Sodium Potassium Chloride Carbon Dioxide Anion Gap BUN Creatinine BUN/Creatinine Ratio Random Glucose Serum Osmolality Calcium Total Bilirubin AST ALT Alkaline Phosphatase Troponin I < 0.02 Serum Total Protein Albumin Globulin Albumin/Globulin Ratio Lipase Urine Color Yellow Urine Appearance Clear Urine pH 5.5 Ur Specific [place] 1.020 Urine Protein Negative Urine Glucose (UA) 500 H Urine Ketones Negative Urine Blood Negative Urine Nitrite Negative Urine Bilirubin Negative Urine Urobilinogen 0.2 Ur Leukocyte Esterase Trace H Urine RBC 0 Urine WBC 1-3 Ur Epithelial Cells 1-3 Urine Bacteria Rare EDP of CXR 2 View: @1939: No acute cardiopulmonary findings concerning for pneumonia, consolidation, pleural effusion, pulmonary edema. EXAM DESCRIPTION: XR Chest,2 Views CLINICAL HISTORY: CP, SOB TECHNIQUE: Two views of the chest are submitted. COMPARISON: 11/02/2017 FINDINGS: Heart: The cardiothoracic silhouette is within normal limits. Prior CABG. Lungs: No focal consolidation. Mediastinum: Unremarkable Pleura: No appreciable effusion. No pneumothorax. Bones: Prior median sternotomy. Multilevel spondylosis. No acute fracture. Upper abdomen: Unremarkable IMPRESSION: No acute disease. Electronically signed by: Sunni Rawls MD 04/03/2019 7:58 PM MEDIA LIBRARIAN - [id number] EXAM DESCRIPTION: CTA Chest CLINICAL HISTORY: 64 years Female CP, SOB, h/o PE, +d-dimer COMPARISON: Radiograph of the chest performed on the same day. TECHNIQUE: Images were obtained in axial, sagittal, and coronal planes. 3-D MIP imaging was performed in coronal and sagittal projections. This exam was performed according to our departmental dose-optimization program which includes use of Automated Exposure Control, adjustment of the mA and/or kV according to patient size and/or use of iterative reconstruction technique. FINDINGS: No filling defects pulmonary arteries bilaterally. No aortic dissection or dilatation. No pericardial or pleural effusions bilaterally. No adenopathy. Prior median sternotomy. No lung parenchymal infiltrates seen. Suspected nodular atelectatic change left lower lobe. No pneumothorax. No definite lung parenchymal nodules bilaterally. Enlarged liver with suspected fatty change. Prior cholecystectomy. No acute osseous abnormality. Enlarged left lobe of thyroid with substernal extension. IMPRESSION: No evidence for pulmonary embolus. No aortic dissection or dilatation. Enlarged left lobe of thyroid with substernal extension. Fatty change involving the liver. Atelectatic change left lower lobe. Electronically signed by: Cornelia Moseley MD 04/03/2019 10:02 PM MEDIA LIBRARIAN Departure - Departure Clinical Impression: Chest pain, unspecified, Anxiety, Stress at home, Fatty liver Time of Disposition: 22:48 Disposition: Discharge to Home or Self Care Condition: Fair Departure Forms: ED Discharge - Pt. Copy, Patient Portal Self Enrollment Instructions: Shortness of Breath (Dyspnea) (DC), Anxiety, Adult (DC), Chest Pain (DC) Diet: resume usual diet Referrals: Carroll Fiore III, MD [Primary Care Provider] - 1-5 Days Home Medications: Ambulatory Orders Aspirin [Aspirin Adult Low Dose] 81 mg PO DAILY 10/05/15 Insulin Detemir [Levemir Pen] 30 unit SUBCU ACBK 10/05/15 Nitroglycerin 0.4 mg Tab [Nitrostat] 1 ea SL Q5MIN PRN #1 bttl 10/04/17 Tramadol HCl 50 mg PO Q8HR PRN #20 tab 08/18/18 Albuterol Sulfate [Proair Hfa] 2 puff INH Q6H PRN 11/26/18 Alprazolam 1 tablet PO PRN PRN 11/26/18 Atorvastatin Calcium [Lipitor] 20 mg PO DAILY 11/26/18 Buspirone HCl 15 mg PO BID 11/26/18 Diclofenac Sodium [Voltaren] 75 mg PO DAILY 11/26/18 Dicyclomine HCl [Dicyclomine Hydrochloride] 20 mg PO TID 11/26/18 Fluconazole 1 tablet PO DAILY 11/26/18 Metoprolol Succinate [Toprol Xl] 25 mg PO BID 11/26/18 Ondansetron [Zuplenz] 4 mg PO PRN PRN 11/26/18 Human Insulin Aspart [Novolog] 10 units SC DAILY 01/14/19
[2019-04-03] MEDS ORDERED: LORazepam 0.5 MG TAB PO ONE (19:43)
--- NOTE | 2019-04-03 19:59 | RAD ---
EXAM DESCRIPTION: XR Chest,2 Views CLINICAL HISTORY: CP, SOB TECHNIQUE: Two views of the chest are submitted. COMPARISON: 11/02/2017 FINDINGS: Heart: The cardiothoracic silhouette is within normal limits. Prior CABG. Lungs: No focal consolidation. Mediastinum: Unremarkable Pleura: No appreciable effusion. No pneumothorax. Bones: Prior median sternotomy. Multilevel spondylosis. No acute fracture. Upper abdomen: Unremarkable IMPRESSION: No acute disease. Electronically signed by: Sunni Rawls MD 04/03/2019 7:58 PM IT COMPLIANCE MANAGER
--- NOTE | 2019-04-03 22:03 | CT ---
EXAM DESCRIPTION: CTA Chest CLINICAL HISTORY: 64 years Female CP, SOB, h/o PE, +d-dimer COMPARISON: Radiograph of the chest performed on the same day. TECHNIQUE: Images were obtained in axial, sagittal, and coronal planes. 3-D MIP imaging was performed in coronal and sagittal projections. This exam was performed according to our departmental dose-optimization program which includes use of Automated Exposure Control, adjustment of the mA and/or kV according to patient size and/or use of iterative reconstruction technique. FINDINGS: No filling defects pulmonary arteries bilaterally. No aortic dissection or dilatation. No pericardial or pleural effusions bilaterally. No adenopathy. Prior median sternotomy. No lung parenchymal infiltrates seen. Suspected nodular atelectatic change left lower lobe. No pneumothorax. No definite lung parenchymal nodules bilaterally. Enlarged liver with suspected fatty change. Prior cholecystectomy. No acute osseous abnormality. Enlarged left lobe of thyroid with substernal extension. IMPRESSION: No evidence for pulmonary embolus. No aortic dissection or dilatation. Enlarged left lobe of thyroid with substernal extension. Fatty change involving the liver. Atelectatic change left lower lobe. Electronically signed by: Cornelia Moseley MD 04/03/2019 10:02 PM [facility]
[2019-04-03 22:11] VITALS: O2SAT 94
[2019-04-03 22:53] VITALS: BP 144/77; TEMP 98.1
== END 2019-04-03 22:53 | disposition home or self-care (01) ==
LOC: ER 18:33
DX: R07.2 Precordial pain (principal); F41.9 Anxiety disorder, unspecified; K76.0 Fatty (change of) liver, not elsewhere classified; R06.02 Shortness of breath; R19.7 Diarrhea, unspecified; I25.2 Old myocardial infarction; J45.909 Unspecified asthma, uncomplicated; I10 Essential (primary) hypertension; E11.9 Type 2 diabetes mellitus without complications; K21.9 Gastro-esophageal reflux disease without esophagitis; Z86.711 Personal history of pulmonary embolism; Z95.1 Presence of aortocoronary bypass graft; Z79.4 Long term (current) use of insulin; Z79.82 Long term (current) use of aspirin; Z79.899 Other long term (current) drug therapy
CPT/HCPCS: 36415; 71046; 71275; 80053; 81001; 83690; 84484; 85025; 85379; 93005; J2270

== ENCOUNTER 2019-08-11 19:40 | Emergency (ER) | payer MEDICARE, MEDICAID ==
[2019-08-11] MEDS ORDERED: SODIUM CHLORIDE 0.9% (FLUSH) 10 ML SYG IV PRN (19:53)
[2019-08-11 19:54] VITALS: TEMP 98.1
[2019-08-11] MEDS ORDERED: SODIUM CHLORIDE 0.9% 1000ML 1,000 ML IVS ONE (20:15)
[2019-08-11] MEDS ORDERED: PROMETHAZINE HCL INJ 12.5 MG in SODIUM CHLORIDE 0.9% 50ML 50 ML IVPB ONE (20:15)
--- NOTE | 2019-08-11 20:18 | ED.PDOC ---
History of Present Illness - General Chief Complaint: Headache Stated Complaint: headache, nausea, feels constipated, anxiety Time Seen by Provider: 08/11/19 19:53 Source: patient - History of Present Illness Initial Comments: 64 yo female with PMH of HTN, CAD, s/p 4vCABG, DM2, anxiety who presents with cc of chest pain. Reports not feeling well with poor energy through the weekend. Taking some energy drinks and not helping. Today reports felt worse with worsening generalized headache, nausea w/o emesis. 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 Pt states she is an anxious person with panic attacks and wanted to get checked out to make sure she is ok. Also reports numerous chronic MSK complaints - posterior neck, BL shoulders, etc... Denies fevers, chills, cough, dyspnea, abd pain, diarrhea, urinary sx's, leg swelling. Reports some constipation recently. Allergies/Adverse Reactions: Allergies NO KNOWN ALLERGY Allergy (Verified 06/28/19 17:13) Home Medications: Ambulatory Orders Aspirin [Aspirin Adult Low Dose] 81 mg PO DAILY 10/05/15 Insulin Detemir [Levemir Pen] 30 unit SUBCU ACBK 10/05/15 Nitroglycerin 0.4 mg Tab [Nitrostat] 1 ea SL Q5MIN PRN #1 bttl 10/04/17 Tramadol HCl 50 mg PO Q8HR PRN #20 tab 08/18/18 Albuterol Sulfate [Proair Hfa] 2 puff INH Q6H PRN 11/26/18 Alprazolam 1 tablet PO PRN PRN 11/26/18 Atorvastatin Calcium [Lipitor] 20 mg PO DAILY 11/26/18 Buspirone HCl 15 mg PO BID 11/26/18 Diclofenac Sodium [Voltaren] 75 mg PO DAILY 11/26/18 Dicyclomine HCl [Dicyclomine Hydrochloride] 20 mg PO TID 11/26/18 Fluconazole 1 tablet PO DAILY 11/26/18 Metoprolol Succinate [Toprol Xl] 25 mg PO BID 11/26/18 Ondansetron [Zuplenz] 4 mg PO PRN PRN 11/26/18 Human Insulin Aspart [Novolog] 10 units SC DAILY 01/14/19 Methocarbamol [Robaxin] 500 - 1,000 mg PO Q6H PRN #20 tab 06/28/19 Tramadol HCl 50 mg PO Q6H PRN #20 tab 06/28/19 Review of Systems - Review of Systems Review of Systems: 08/11/19 20:19 as per HPI All other Systems: Reviewed and Negative Past Medical History (General) - Patient Medical History Hx Seizures: No Hx Stroke: No Hx Dementia: No Hx Asthma: Yes Hx of COPD: No Hx Cardiac Disorders: Yes Hx Congestive Heart Failure: No Hx Pacemaker: No Hx Hypertension: Yes Hx Thyroid Disease: No Hx Diabetes: Yes Hx Gastroesophageal Reflux: Yes Hx Renal Disease: No Hx Cancer: No Hx of HIV: No Hx Hepatitis C: No Hx MRSA: No - Vaccination History Hx Tetanus, Diphtheria Vaccination: No Hx Influenza Vaccination: Yes Hx Pneumococcal Vaccination: Yes - Social History Hx Tobacco Use: No Hx Alcohol Use: No Hx Substance Use: No Hx Substance Use Treatment: No Hx Depression: No Hx Physical Abuse: No Hx Emotional Abuse: No - Female History Patient : No Family Medical History - Family History Mother Family History: Unknown Living Status: Age at (years of age): 54 Cause of : heart problems, dm Hx Family Hypertension: Yes Hx Family Stroke: Yes Hx Family Diabetes: Yes - several family members Hx Family Cancer: Yes - liver,lymphoma,breast-several family members Father Living Status: Age at (years of age): 45 Cause of : pneumonia Hx Family Hypertension: Yes Hx Family Diabetes: Yes Physical Exam - Physical Exam General Appearance: Alert, Anxious, No apparent distress Eye Exam: bilateral normal Ears, Nose, Throat: hearing grossly normal, normal ENT inspection, normal pharynx Neck: non-tender, full range of motion, supple, normal inspection Respiratory: lungs clear, normal breath sounds, no respiratory distress, no accessory muscle use, other - chest pain reproducible upon palpation of ant chest wall Cardiovascular/Chest: normal peripheral pulses, regular rate, rhythm, no edema, no gallop, no JVD, no murmur Peripheral Pulses: radial,right: 2+, radial,left: 2+ Gastrointestinal/Abdominal: normal bowel sounds, non tender, soft, no organomegaly Back Exam: normal inspection Extremity: normal range of motion, non-tender, normal inspection, no pedal edema, no calf tenderness 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 Remainder of labs unremarkable as is her CXR. She has remained chest pain free for >2 hours in ED with just rest, IV fluids, and Phenergan. -Does not appear cardiac in nature. Seems related to anxiety most likely - possibly also a MSK component given chest wall ttp. -discussed all findings with patient. Will dc home and advised close PCP and cardiology f/u. Strict ED return warnings issued. Efra Tinsley MD Billing #[id number] 08/11/19 19:53 IV Care:Saline Lock per Protoc QSHIFT Telemetry .ONCE Sodium Chloride 0.9% (Flush) [Saline Flush Syringe] 10 ml IV PRN PRN EKG Assessment ONCE Pulse Oximetry Assessment DAILY 08/11/19 20:00 EKG STAT 08/11/19 21:45 EKG Assessment ONCE EKG STAT 08/12/19 09:00 Pulse Ox Daily Laboratory Results - last 24 hr 08/11/19 08/11/19 08/11/19 20:05 20:05 20:05 WBC 6.2 RBC 4.74 Hgb 13.7 Hct 40.0 MCV 84.5 MCH 28.9 MCHC 34.3 RDW 12.8 Plt Count 229 MPV 8.5 Absolute Neuts (auto) 3.40 Absolute Lymphs (auto) 2.10 Absolute Monos (auto) 0.40 Absolute Eos (auto) 0.20 Absolute Basos (auto) 0.10 Neutrophils % 55.1 Lymphocytes % 33.5 Monocytes % 7.3 Eosinophils % 3.2 Basophils % 0.9 D-Dimer, Quantitative Cancelled Sodium 137 Potassium 3.4 L Chloride 103 Carbon Dioxide 25 Anion Gap 12.4 BUN 11 Creatinine 0.43 L BUN/Creatinine Ratio 25.6 H Random Glucose 139 H Serum Osmolality 275.5 Calcium 8.8 Total Bilirubin 0.9 AST 23 ALT 23 Alkaline Phosphatase 65 Troponin I B-Natriuretic Peptide 40.0 Serum Total Protein 7.1 Albumin 3.6 Globulin 3.5 Albumin/Globulin Ratio 1.0 L 08/11/19 08/11/19 20:05 21:50 WBC RBC Hgb Hct MCV MCH MCHC RDW Plt Count MPV Absolute Neuts (auto) Absolute Lymphs (auto) Absolute Monos (auto) Absolute Eos (auto) Absolute Basos (auto) Neutrophils % Lymphocytes % Monocytes % Eosinophils % Basophils % D-Dimer, Quantitative Sodium Potassium Chloride Carbon Dioxide Anion Gap BUN Creatinine BUN/Creatinine Ratio Random Glucose Serum Osmolality Calcium Total Bilirubin AST ALT Alkaline Phosphatase Troponin I < 0.02 < 0.02 B-Natriuretic Peptide Serum Total Protein Albumin Globulin Albumin/Globulin Ratio - EKG/XRAY/CT EKG: Sinus - NSR, HR 70, no ST elevs, question q waves in inferior leads indicative of old NH, nonspecific ST-T wave changes in lateral leads, axis and interval normal, unchanged from 06/28/2019 EKG XRAY: chest - no acute processes per my read. Small lung volumes noted 2/2 obesity - Additional EKG/XRAY/Consults EKG #2: Sinus - NSR, HR 60, compared to initial EKG sinus tach now resolved, otherwise unchanged Departure - Departure Clinical Impression: Anxiety, Musculoskeletal chest pain Time of Disposition: 22:26 Disposition: Discharge to Home or Self Care Condition: Good Departure Forms: ED Discharge - Pt. Copy, Patient Portal Self Enrollment Instructions: Anxiety, Adult (DC) Diet: low fat, low cholesterol, diabetic diet, low salt diet Activity: increase activity as tolerated Referrals: Carroll Fiore III, MD [Primary Care Provider] - 1-2 Weeks Home Medications: Ambulatory Orders Aspirin [Aspirin Adult Low Dose] 81 mg PO DAILY 10/05/15 Insulin Detemir [Levemir Pen] 30 unit SUBCU ACBK 10/05/15 Nitroglycerin 0.4 mg Tab [Nitrostat] 1 ea SL Q5MIN PRN #1 bttl 10/04/17 Tramadol HCl 50 mg PO Q8HR PRN #20 tab 08/18/18 Albuterol Sulfate [Proair Hfa] 2 puff INH Q6H PRN 11/26/18 Alprazolam 1 tablet PO PRN PRN 11/26/18 Atorvastatin Calcium [Lipitor] 20 mg PO DAILY 11/26/18 Buspirone HCl 15 mg PO BID 11/26/18 Diclofenac Sodium [Voltaren] 75 mg PO DAILY 11/26/18 Dicyclomine HCl [Dicyclomine Hydrochloride] 20 mg PO TID 11/26/18 Fluconazole 1 tablet PO DAILY 11/26/18 Metoprolol Succinate [Toprol Xl] 25 mg PO BID 11/26/18 Ondansetron [Zuplenz] 4 mg PO PRN PRN 11/26/18 Human Insulin Aspart [Novolog] 10 units SC DAILY 01/14/19 Methocarbamol [Robaxin] 500 - 1,000 mg PO Q6H PRN #20 tab 06/28/19 Tramadol HCl 50 mg PO Q6H PRN #20 tab 06/28/19 Additional Instructions: Return if symptoms worsen or other concerning symptoms develop such as worsening or change in chest pain, shortness of breath, fevers, etc... Follow up with your primary care doctor in 1-2 weeks and cardiology as scheduled. Remain well- hydrated and avoid excess consumption of high-sugar or caffeine beverages which may worsen anxiety and dehydration.
[2019-08-11] MEDS ORDERED: PROMETHAZINE HCL INJ 25 MG/ML VIAL ONE (20:19)
[2019-08-11] MEDS ORDERED: SODIUM CHLORIDE 0.9% 50ML 50 ML ONE (20:19)
--- NOTE | 2019-08-11 20:33 | RAD ---
EXAM DESCRIPTION: Chest x-ray,1 View CLINICAL HISTORY: dyspnea COMPARISON: July 15, 2019 FINDINGS: Cardiac silhouette is within normal limits. The patient is status post median sternotomy and CABG. EKG leads project over the chest. Examination was obtained in apical lordotic view. There is no focal parenchymal or pleural disease. There is no acute osseous process visualized. IMPRESSION: No evidence of acute cardiopulmonary disease. Electronically signed by: Jarrett Cardoza MD 08/11/2019 8:31 PM CDT
[2019-08-11 22:03] VITALS: BP 144/77; O2SAT 98
== END 2019-08-11 22:47 | disposition home or self-care (01) ==
LOC: ER 19:40
DX: R07.89 Other chest pain (principal); F41.9 Anxiety disorder, unspecified; R11.0 Nausea; I10 Essential (primary) hypertension; E11.9 Type 2 diabetes mellitus without complications; I25.10 Atherosclerotic heart disease of native coronary artery without angina pectoris; Z95.1 Presence of aortocoronary bypass graft; Z79.899 Other long term (current) drug therapy; Z79.82 Long term (current) use of aspirin; Z79.4 Long term (current) use of insulin
CPT/HCPCS: 36415; 71045; 80053; 83880; 84484; 85025; 93005; A4216; J2550; J7030

== ENCOUNTER 2019-11-25 08:07 | Day surgery (SDC) | payer MEDICARE, MEDICAID ==
[~2019-11-25 08:07] MED LIST: DEXAMETHASONE INJ 10 MG/ML VIAL ONE; LIDOCAINE 1% 10 ML VIAL INJ ONE; ONDANSETRON INJ 4 MG/2 ML VIAL ONE; PROPOFOL 200 MG/20 ML VIAL IV ONE
--- NOTE | 2019-11-25 08:25 | ED.PDOC ---
History of Present Illness - General Time Seen by Provider: 11/25/19 08:15 - History of Present Illness Initial Comments: 64 yo F with CAD, DM, HTN comes in with two days of rectal pain. States she is suppose to see her PCP today at 3 PM, but decided to come in. States the pain is constant. Sometimes has fecal incontinence bc of the pain. Has chronic urinary incontinence. Denies back injury or back pain. no weakness, no numbness, no urinary or fecal retention. Has not had a similar problem before. no fevers. no malaise. no black or bloody bm. no emesis. Allergies/Adverse Reactions: Allergies NO KNOWN ALLERGY Allergy (Verified 11/25/19 08:28) Home Medications: Ambulatory Orders Aspirin [Aspirin Adult Low Dose] 81 mg PO DAILY 10/05/15 Insulin Detemir [Levemir Pen] 30 unit SUBCU ACBK 10/05/15 Nitroglycerin 0.4 mg Tab [Nitrostat] 1 ea SL Q5MIN PRN #1 bttl 10/04/17 Tramadol HCl 50 mg PO Q8HR PRN #20 tab 08/18/18 Albuterol Sulfate [Proair Hfa] 2 puff INH Q6H PRN 11/26/18 Alprazolam 1 tablet PO PRN PRN 11/26/18 Atorvastatin Calcium [Lipitor] 20 mg PO DAILY 11/26/18 Buspirone HCl 15 mg PO BID 11/26/18 Diclofenac Sodium [Voltaren] 75 mg PO DAILY 11/26/18 Dicyclomine HCl [Dicyclomine Hydrochloride] 20 mg PO TID 11/26/18 Fluconazole 1 tablet PO DAILY 11/26/18 Metoprolol Succinate [Toprol Xl] 25 mg PO BID 11/26/18 Ondansetron [Zuplenz] 4 mg PO PRN PRN 11/26/18 Human Insulin Aspart [Novolog] 10 units SC DAILY 01/14/19 Methocarbamol [Robaxin] 500 - 1,000 mg PO Q6H PRN #20 tab 06/28/19 Tramadol HCl 50 mg PO Q6H PRN #20 tab 06/28/19 Review of Systems - Review of Systems Constitutional: Denies: diaphoresis, fever, malaise, weakness EENTM: Denies: eye pain, blurred vision Respiratory: States: see HPI. Denies: cough, orthopnea, short of breath Cardiology: Denies: chest pain, palpitations, syncope Gastrointestinal/Abdominal: States: diarrhea. Denies: abdominal pain, constipation, nausea, vomiting Genitourinary: States: other - chronic incontience . Denies: discharge, dysuria, frequency Musculoskeletal: Denies: back pain, joint pain, muscle stiffness Skin: States: see HPI Neurological: Denies: headache, numbness, paresthesia, tingling, weakness Endocrine: Denies: unexplained weight gain, unexplained weight loss Hematologic/Lymphatic: Denies: blood clots, easy bleeding, easy bruising All other Systems: Reviewed and Negative Past Medical History (General) - Patient Medical History Hx Seizures: No Hx Stroke: No Hx Dementia: No Hx Asthma: Yes Hx of COPD: No Hx Cardiac Disorders: Yes Hx Congestive Heart Failure: No Hx Pacemaker: No Hx Hypertension: Yes Hx Thyroid Disease: No Hx Diabetes: Yes Hx Gastroesophageal Reflux: Yes Hx Renal Disease: No Hx Cancer: No Hx of HIV: No Hx Hepatitis C: No Hx MRSA: No - Vaccination History Hx Tetanus, Diphtheria Vaccination: No Hx Influenza Vaccination: Yes Hx Pneumococcal Vaccination: Yes - Social History Hx Tobacco Use: No Hx Alcohol Use: No Hx Substance Use: No Hx Substance Use Treatment: No Hx Depression: No Hx Physical Abuse: No Hx Emotional Abuse: No - Female History Patient : No Family Medical History - Family History Mother Family History: Unknown Living Status: Age at (years of age): 54 Cause of : heart problems, dm Hx Family Hypertension: Yes Hx Family Stroke: Yes Hx Family Diabetes: Yes - several family members Hx Family Cancer: Yes - liver,lymphoma,breast-several family members Father Living Status: Age at (years of age): 45 Cause of : pneumonia Hx Family Hypertension: Yes Hx Family Diabetes: Yes Physical Exam - Physical Exam General Appearance: Alert, Comfortable, Well Developed, Well Groomed, Well Hy drated, Well Nourished, Other - many missing teeth Eye Exam: bilateral normal Ears, Nose, Throat: hearing grossly normal Neck: non-tender, full range of motion, supple, normal inspection Respiratory: lungs clear, normal breath sounds, no respiratory distress, no accessory muscle use Cardiovascular/Chest: regular rate, rhythm, no gallop, no JVD, no murmur Peripheral Pulses: radial,right: 2+, radial,left: 2+, posterior tibialis,right: 2+, posterior tibialis,left: 2+ Rectal Exam: normal rectal tone, tenderness, other - rectal indruation at 12 oclock position with tracking into the rectum. no drainage, mild fluctance. Back Exam: normal inspection, no CVA tenderness Extremity: normal range of motion, non-tender, normal inspection Neurologic: no motor/sensory deficits, alert, normal mood/affect Skin Exam: normal color, warm/dry Lymphatic: no adenopathy Progress - Progress Progress: 11/25/19 08:40 The data reviewed when caring for this patient included: nurse notes, prior records etc. The history and assessments from nurses notes were reviewed and considered, and the patient's home medication list was also reviewed and considered. Due to tracking into rectum and hx of DM will get CT to evaluate extent of abscess. Will give Unasyn, morphine for pain. EMLA to rectal area. 11/25/19 10:11 General surgery consulted, in OR, pending return call. 11/25/19 10:[address] Crane, accepted patient. Patient NPO since 10 PM last night. My assessment and the results of testing completed here in the ED were discussed with the patient. - Results/Orders Results/Orders: 11/25/19 08:25 Abdomen/Pelvis w/Contrast [CT] Stat 11/25/19 08:27 Hold Metformin x 48Hrs [id number] 11/25/19 09:05 Sodium Chloride 0.9% 1000ML [Ns 1000 ml] 1,000 ml IVS STAT Laboratory Results - last 24 hr 11/25/19 11/25/19 08:37 08:37 WBC 9.3 RBC 4.57 Hgb 13.6 Hct 38.4 MCV 84.2 MCH 29.7 MCHC 35.3 RDW 12.2 Plt Count 213 MPV 8.8 Absolute Neuts (auto) 7.20 H Absolute Lymphs (auto) 1.30 Absolute Monos (auto) 0.60 Absolute Eos (auto) 0.10 Absolute Basos (auto) 0.10 Neutrophils % 77.5 Lymphocytes % 14.5 L Monocytes % 5.9 Eosinophils % 1.4 Basophils % 0.7 Sodium 136 Potassium 3.4 L Chloride 101 Carbon Dioxide 26 Anion Gap 12.4 BUN 12 Creatinine 0.44 L BUN/Creatinine Ratio 27.3 H Random Glucose 239 H Serum Osmolality 279.5 Calcium 8.8 Total Bilirubin 1.1 H AST 16 ALT 22 Alkaline Phosphatase 93 Serum Total Protein 7.1 Albumin 3.5 Globulin 3.6 H Albumin/Globulin Ratio 1.[address] Abd/pelvis with contrast: 1. Posterior perirectal 5.4 cm peripherally enhancing collection is consistent with abscess. 2. Fatty infiltration of the liver. 3. Small sliding hiatal hernia, unchanged. - Additional EKG/XRAY/Consults Time Called: 10:10 Consult/PCP: Dr. Crane general surgery Departure - Departure Clinical Impression: Abscess of anal and rectal regions Disposition: Admit Patient Instructions: Anal Abscess and Fistula, Adult (DC) Referrals: Carroll Fiore III, MD [Primary Care Provider] - 1-5 Days Home Medications: Ambulatory Orders Aspirin [Aspirin Adult Low Dose] 81 mg PO DAILY 10/05/15 Insulin Detemir [Levemir Pen] 30 unit SUBCU ACBK 10/05/15 Nitroglycerin 0.4 mg Tab [Nitrostat] 1 ea SL Q5MIN PRN #1 bttl 10/04/17 Tramadol HCl 50 mg PO Q8HR PRN #20 tab 08/18/18 Albuterol Sulfate [Proair Hfa] 2 puff INH Q6H PRN 11/26/18 Alprazolam 1 tablet PO PRN PRN 11/26/18 Atorvastatin Calcium [Lipitor] 20 mg PO DAILY 11/26/18 Buspirone HCl 15 mg PO BID 11/26/18 Diclofenac Sodium [Voltaren] 75 mg PO DAILY 11/26/18 Dicyclomine HCl [Dicyclomine Hydrochloride] 20 mg PO TID 11/26/18 Fluconazole 1 tablet PO DAILY 11/26/18 Metoprolol Succinate [Toprol Xl] 25 mg PO BID 11/26/18 Ondansetron [Zuplenz] 4 mg PO PRN PRN 11/26/18 Human Insulin Aspart [Novolog] 10 units SC DAILY 01/14/19 Methocarbamol [Robaxin] 500 - 1,000 mg PO Q6H PRN #20 tab 06/28/19 Tramadol HCl 50 mg PO Q6H PRN #20 tab 06/28/19
[2019-11-25] MEDS ORDERED: ONDANSETRON INJ 4 MG/2 ML VIAL IV ONE (08:27)
[2019-11-25] MEDS ORDERED: MORPHINE SULFATE INJ 10 MG/ML VIAL IV ONE (08:27)
[2019-11-25] MEDS ORDERED: AMPICILLIN & SULBACTAM SODIUM 1.5 GM in SODIUM CHL 0.9% 50ML MIN-BAG+ 50 ML IVPB ONE (08:33)
[2019-11-25] MEDS ORDERED: LIDOCAINE/PRILOCAINE 2.5% 30 GM TUBE TOP ONE (09:04)
[2019-11-25] MEDS ORDERED: SODIUM CHLORIDE 0.9% 1000ML 1,000 ML IVS PRN (09:05)
--- NOTE | 2019-11-25 10:05 | CT ---
EXAM DESCRIPTION: CT ABDOMEN AND PELVIS WITH CONTRAST CLINICAL HISTORY: rectal abscess COMPARISON: CT abdomen and pelvis 11/04/2018. TECHNIQUE: CT of the abdomen and pelvis are performed after IV contrast administration. No oral contrast was given. Multiplanar reconstructions were obtained. FINDINGS: Mild left basilar subsegmental atelectasis. Small sliding hiatal hernia, unchanged. The liver is normal in size and contour. There is diffuse fatty infiltration of the liver. The gallbladder is surgically absent. No biliary ductal dilatation. The spleen is normal in size. The pancreas and adrenals enhance normally. The kidneys are normal in size and contour. No hydronephrosis or nephrolithiasis. A peripherally enhancing hypodense collection along the posterior perirectal region measures 5.4 x 2.7 cm (just deep to the inferior aspect of the intergluteal fold) with mild surrounding fat stranding/inflammation is consistent with a perirectal abscess. No focal bowel wall thickening or bowel obstruction. The appendix is normal. There is no lymphadenopathy or free fluid observed. No free air. The bladder is normal. The uterus is surgically absent. Degenerative changes of the spine. No acute osseous abnormality. IMPRESSION: 1. Posterior perirectal 5.4 cm peripherally enhancing collection is consistent with abscess. 2. Fatty infiltration of the liver. 3. Small sliding hiatal hernia, unchanged. This exam was performed according to our departmental dose-optimization program, which includes automated exposure control, adjustment of the mA and/or kV according to patient size and/or use of iterative reconstruction technique. Electronically signed by: Howard De Santiago DO 11/25/2019 10:03 AM CDT
[2019-11-25] MEDS ORDERED: SUGAMMADEX SODIUM 200 MG/2 ML VIAL IV ONE (11:59)
[2019-11-25] MEDS ORDERED: MIDAZOLAM INJ 2 MG/2 ML VIAL ONE (12:00)
[2019-11-25] MEDS ORDERED: fentaNYL CITRATE INJ 50 MCG/ML AMP ONE (12:00)
[2019-11-25] MEDS ORDERED: ROCURONIUM BROMIDE 10 MG/ML VIAL ONE (12:01)
[2019-11-25] MEDS ORDERED: BUPIVACAINE 0.5% W/EPI 30 ML VIAL INJ ONE ×2 (12:08→12:50)
--- NOTE | 2019-11-25 13:10 | HP ---
REASON FOR ADMISSION: Perirectal abscess. HISTORY OF PRESENT ILLNESS: This is a 64-year-old woman who came in with about one day of perianal pain. It has been just over a day and getting worse. She wanted to stay home, but could not handle it anymore. She saw her primary care physician and came to the Emergency Department. She denies any recent stool changes, black or bloody stools or diarrhea. No urinary problems. No history of similar symptoms. She denies any fevers or chills. PAST MEDICAL HISTORY: 1. Coronary artery disease. 2. Diabetes. 3. Hypertension. MEDICATIONS: 1. Aspirin. 2. Insulin. 3. Nitro p.r.n. 4. Tramadol. 5. Albuterol. 6. Buspirone. 7. Diclofenac. 8. Metoprolol. 9. Ondansetron. 10. Methocarbamol. 11. Tramadol. ALLERGIES: NO KNOWN DRUG ALLERGIES. FAMILY HISTORY: Coronary disease, diabetes. SOCIAL HISTORY: The patient denies any illicit habits. REVIEW OF SYSTEMS: CONSTITUTIONAL: No fevers, no chills. HEENT: No headache, visual changes, sore throat. RESPIRATORY: No cough or wheeze. CARDIOVASCULAR: No chest pain or palpitations. GASTROINTESTINAL: No abdominal pain, nausea, vomiting, diarrhea. RECTAL: As above. GENITOURINARY: No frequency, dysuria or hematuria. EXTREMITIES: No complaints. PHYSICAL EXAMINATION: VITAL SIGNS: Afebrile. Vital signs are normal. GENERAL: The patient is conscious, awake, alert and well-oriented, appears comfortable. She was up to the restroom. HEENT: Normocephalic, atraumatic. Pupils equal and reactive. Sclerae anicteric. Oral mucosa is moist. NECK: Supple. No adenopathy or thyromegaly. CHEST: Clear and equal bilaterally. No wheezing or crackles. HEART: Regular rate and rhythm. ABDOMEN: Soft, nontender. Digital rectal exam reveals a perirectal abscess in the posterior position. On significant cellulitis. EXTREMITIES: No cyanosis, clubbing or edema. LABORATORY: White count 9, hematocrit 38, platelet count 213. BUN 12, creatinine 0.4. RADIOLOGY: CT confirmed evidence of an ischiorectal abscess. IMPRESSION: 1. Ischiorectal abscess. PLAN: To the Operating Room for I&D and the patient can be safely be discharged today. #[id number] [facility]
--- NOTE | 2019-11-25 13:15 | OP ---
DATE OF PROCEDURE: 11/25/19 PREOPERATIVE DIAGNOSIS: 1. Ischiorectal abscess. POSTOPERATIVE DIAGNOSIS: 1. Ischiorectal abscess. PROCEDURE: 1. Drainage of ischiorectal abscess. SURGEON: Agustin Crane MD. ANESTHESIA: General. FINDINGS: In the right posterior, there is a moderate sized abscess. COMPLICATIONS: None. ESTIMATED BLOOD LOSS: None. PLAN: Discharge. INDICATION: As stated. PROCEDURE: In the prone position, general anesthesia was induced. She was prepped and draped in sterile fashion. Local anesthesia was placed in the area as well as an ischiorectal nerve block on the left. An elliptical incision was made removing a small portion of overlying skin. A lot of white pus came out. I probed the area. The defect went straight down behind the sphincter muscles. There was no evidence of any additional tracking. We cleaned it out, irrigated it. There was no evidence of necrosis. It looked like we got the whole thing drained. It was packed with iodoform gauze. More local was placed. She was awakened and taken to Recovery to be discharged. #[id number] [facility]
[2019-11-25 14:56] VITALS: BP 174/83; TEMP 99.3; O2SAT 96
== END 2019-11-25 14:10 | disposition home or self-care (01) ==
LOC: ER 08:07 → EDSTATUS 09:01 → ER 12:25
PROVIDERS: ATTEND Family Medicine
DX: K61.39 Other ischiorectal abscess (principal); I10 Essential (primary) hypertension; I25.10 Atherosclerotic heart disease of native coronary artery without angina pectoris; E11.9 Type 2 diabetes mellitus without complications; K21.9 Gastro-esophageal reflux disease without esophagitis; E66.9 Obesity, unspecified; Z79.899 Other long term (current) drug therapy; Z79.82 Long term (current) use of aspirin; Z95.1 Presence of aortocoronary bypass graft; Z79.4 Long term (current) use of insulin
CPT/HCPCS: 00902; 36415; 36416; 46040; 74177; 80053; 82948; 85025; 96361; 96365; 96375; 99285; J0295; J1100; J2250; J2270; J2405; J3010; J3490; J7030; J7050

== ENCOUNTER 2019-12-21 09:21 | Emergency (ER) | payer MEDICARE, MEDICAID ==
--- NOTE | 2019-12-21 09:26 | ED.PDOC ---
History of Present Illness - General Time Seen by Provider: 12/21/19 09:23 - History of Present Illness Initial Comments: 64 yo with a PMH CAD, spinal stenosis is one month post op rectal abscess drainage, comes in with abdominal discomfort, diarrhea, fecal incontinence. States she has chronic numbness through out, but does not specify saddle anesthesia. Denies any injury. States she was fine until about two week ago started getting cramping and fecal incontinence. no black or bloody bm. no fever. no drainage. no n/v. does feel short of breath, but notes she has anxiety which is worse with wearing a mask. Review of Systems - Review of Systems Constitutional: Denies: fever, malaise EENTM: Denies: blurred vision, double vision, ear discharge, nose congestion, throat pain, mouth pain Respiratory: Denies: cough, orthopnea, stridor Cardiology: Denies: chest pain, edema, palpitations, syncope Gastrointestinal/Abdominal: States: abdominal pain, diarrhea, nausea. Denies: constipation, vomiting Genitourinary: Denies: discharge, dysuria, frequency, hematuria Musculoskeletal: States: back pain. Denies: joint pain, muscle pain, muscle stiffness Neurological: States: anxiety, numbness, paresthesia, other - chronic sciatica . Denies: headache, seizure, tingling, tremors, weakness Endocrine: Denies: unexplained weight gain, unexplained weight loss Hematologic/Lymphatic: Denies: anemia, blood clots, easy bleeding, easy bruising Past Medical History (General) - Patient Medical History Hx Seizures: No Hx Stroke: No Hx Dementia: No Hx Asthma: Yes Hx of COPD: No Hx Cardiac Disorders: Yes Hx Congestive Heart Failure: No Hx Pacemaker: No Hx Hypertension: Yes Hx Thyroid Disease: No Hx Diabetes: Yes - POST OP FSBS ORDERED FOR ASU Hx Gastroesophageal Reflux: Yes Hx Renal Disease: No Hx Cancer: No Hx of HIV: No Hx Hepatitis C: No Hx MRSA: No - Vaccination History Hx Tetanus, Diphtheria Vaccination: No Hx Influenza Vaccination: Yes Hx Pneumococcal Vaccination: Yes - Social History Hx Tobacco Use: No Hx Alcohol Use: No Hx Substance Use: No Hx Substance Use Treatment: No Hx Depression: No Hx Physical Abuse: No Hx Emotional Abuse: No - Female History Patient : No Family Medical History - Family History Mother Family History: Unknown Living Status: Age at (years of age): 54 Cause of : heart problems, dm Hx Family Hypertension: Yes Hx Family Stroke: Yes Hx Family Diabetes: Yes - several family members Hx Family Cancer: Yes - liver,lymphoma,breast-several family members Father Living Status: Age at (years of age): 45 Cause of : pneumonia Hx Family Hypertension: Yes Hx Family Diabetes: Yes Physical Exam - Physical Exam General Appearance: Alert, Comfortable, No apparent distress, Other - stable gait Eyes, Ears, Nose, Throat Exam: PERRL/EOMI, normal ENT inspection Neck: non-tender, full range of motion, supple, normal inspection Respiratory: chest non-tender, lungs clear, normal breath sounds, no respiratory distress, no accessory muscle use Cardiovascular/Chest: normal peripheral pulses, regular rate, rhythm, no edema, no gallop, no JVD, no murmur Peripheral Pulses: 2+ Gastrointestinal/Abdominal: normal bowel sounds, non tender, soft, no organomegaly, no pulsatile mass, other - no rebound or gaurding. 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 No abnormal movements appreciated. No pronator drift. Patient ambulates with a steady gait. Coordination: Finger to nose and heel to slaughter testing intact bilaterally. patellar reflex 1+ bilaterally. Progress - Progress Progress: 12/21/19 10:48 patient resting comfortably, on mobile device. DDX: SBO, gastroenteritis, CAD, PE, CHF, constipation, UTI, cauda equina. EKG shows HR 74, NSR, with nonspecific st changes when compared to ecgs on 08/11/19 and 06/28/19 there is no significant change. CXR no acute cardiopulmonary pathology. Will get blood work, including d-dimer, low probability of PE. as well as CT abd/pelvis. 12/21/19 11:36 patient given morphine for pain. Blood work overall unremarkable. CT abd/pelvis negative for acute pathology. while fecal incontinence can occur after rectal surgery, in the presence of decrease rectal tone, I feel patient should have a lumbar MRI to rule out cauda equina. She has chronic urge incontinence, but does think its gotten worse over the past two weeks 12/21/19 11:48 The data reviewed when caring for this patient included: nurse notes, prior records, etc. The history and assessments from nurses notes were reviewed and considered, and the patient's home medication list was also reviewed and considered. My assessment and the results of testing completed here in the ED were discussed with the patient/family. All questions were answered, and they express understanding of my assessment and the plan. She was discharged in stable condition. Diane Dent DO #[id number] - Results/Orders Results/Orders: 12/21/19 09:30 EKG STAT 12/21/19 10:04 Hold Metformin x 48Hrs [id number] Laboratory Results WBC 4.7 K/mm3 (4.8-10.8) L 12/21/19 09:40 RBC 4.73 M/mm3 (4.20-5.40) 12/21/19 09:40 Hgb 13.8 gm/dL (12.0-16.0) 12/21/19 09:40 Hct 39.6 % (36.0-47.0) 12/21/19 09:40 MCV 83.9 fl (81.0-99.0) 12/21/19 09:40 MCH 29.2 pg (27.0-31.0) 12/21/19 09:40 MCHC 34.8 g/dL (33.0-37.0) 12/21/19 09:40 RDW 12.5 % (11.5-14.5) 12/21/19 09:40 Plt Count 185 K/mm3 (130-400) 12/21/19 09:40 MPV 9.1 fl (7.40-10.4) 12/21/19 09:40 Absolute Neuts (auto) 2.80 K/uL (1.8-6.8) 12/21/19 09:40 Absolute Lymphs (auto) 1.40 K/uL (1.0-3.4) 12/21/19 09:40 Absolute Monos (auto) 0.20 K/uL (0.2-0.8) 12/21/19 09:40 Absolute Eos (auto) 0.10 K/uL (0.0-0.4) 12/21/19 09:40 Absolute Basos (auto) 0.10 K/uL (0.0-0.1) 12/21/19 09:40 Neutrophils % 59.9 % (42.0-78.0) 12/21/19 09:40 Lymphocytes % 31.0 % (20.0-50.0) 12/21/19 09:40 Monocytes % 5.2 % (2.0-9.0) 12/21/19 09:40 Eosinophils % 2.8 % (1.0-5.0) 12/21/19 09:40 Basophils % 1.1 % (0.0-2.0) 12/21/19 09:40 PT 10.3 SECONDS (9.0-10.9) 12/21/19 09:40 INR 1.04 (0.9-1.15) 12/21/19 09:40 PTT (SP) 22.0 SECONDS (21.8-31.6) 12/21/19 09:40 D-Dimer, Quantitative 229.0 ng/ml (131-400) 12/21/19 09:40 Sodium 136 mmol/L (135-145) 12/21/19 09:40 Potassium 3.3 mmol/L (3.6-5.0) L 12/21/19 09:40 Chloride 106 mmol/L (101-111) 12/21/19 09:40 Carbon Dioxide 23 mmol/L (21-31) 12/21/19 09:40 Anion Gap 10.3 (12-18) L 12/21/19 09:40 BUN 10 mg/dL (7-18) 12/21/19 09:40 Creatinine 0.54 mg/dL (0.6-1.3) L 12/21/19 09:40 BUN/Creatinine Ratio 18.5 (10-20) 12/21/19 09:40 Random Glucose 355 mg/dL (70-105) H 12/21/19 09:40 Serum Osmolality 285.3 mOsm/L (275-295) 12/21/19 09:40 Calcium 8.7 mg/dL (8.4-10.2) 12/21/19 09:40 Total Bilirubin 1.1 mg/dL (0.2-1.0) H 12/21/19 09:40 AST 24 IU/L (10-42) 12/21/19 09:40 ALT 25 IU/L (10-60) 12/21/19 09:40 Alkaline Phosphatase 88 IU/L (42-121) 12/21/19 09:40 Troponin I < 0.02 ng/mL (0.01-0.05) 12/21/19 09:40 B-Natriuretic Peptide 70.5 pg/ml (0-100) 12/21/19 09:40 Serum Total Protein 6.8 gm/dL (6.4-8.2) 12/21/19 09:40 Albumin 3.7 g/dl (3.2-5.5) 12/21/19 09:40 Globulin 3.1 gm/dL (2.3-3.5) 12/21/19 09:40 Albumin/Globulin Ratio 1.2 (1.1-1.9) 12/21/19 09:40 Lipase 36 U/L (22-51) 12/21/19 09:40 Urine Color Yellow (Yellow) 12/21/19 10:02 Urine Appearance Clear (Clear) 12/21/19 10:02 Urine pH 5.0 (4.5-7.8) 12/21/19 10:02 Ur Specific [place] 1.020 (1.005-1.030) 12/21/19 10:02 Urine Protein Negative mg/dL 12/21/19 10:02 Urine Glucose (UA) 500 mg/dL (Negative) H 12/21/19 10:02 Urine Ketones Negative mg/dL (NEGATIVE) 12/21/19 10:02 Urine Blood Negative (Negative) 12/21/19 10:02 Urine Nitrite Negative 12/21/19 10:02 Urine Bilirubin Negative (NEGATIVE) 12/21/19 10:02 Urine Urobilinogen 0.2 mg/dL (0.2-1.0) 12/21/19 10:02 Ur Leukocyte Esterase Negative (Negative) 12/21/19 10:02 Urine RBC 0 /hpf 12/21/19 10:02 Urine WBC 0 /hpf 12/21/19 10:02 Ur Epithelial Cells 0 /hpf 12/21/19 10:02 Urine Bacteria 0 12/21/19 10:02 Stool Occult Blood Negative (NEGATIVE) 12/21/19 09:58 Departure - Departure Clinical Impression: Fecal incontinence Qualifiers: Fecal incontinence type: unspecified Qualified Code(s): R15.9 - Full incontinence of feces Abdominal pain Qualifiers: Abdominal location: unspecified location Qualified Code(s): R10.9 - Unspecified abdominal pain Back pain Qualifiers: Back pain location: low back pain Chronicity: chronic Back pain laterality: mid line Sciatica presence: with sciatica Sciatica laterality: sciatica laterality unspecified Qualified Code(s): M54.40 - Lumbago with sciatica, unspecified side Time of Disposition: 11:59 Disposition: Transfer to Hospital Referrals: Carroll Fiore III, MD [Primary Care Provider] - 1-2 Days Agustin Crane MD [Active Staff] - 1-2 Days Home Medications: Ambulatory Orders Aspirin [Aspirin Adult Low Dose] 81 mg PO DAILY 10/05/15 Insulin Detemir [Levemir Pen] 30 unit SUBCU ACBK 10/05/15 Nitroglycerin 0.4 mg Tab [Nitrostat] 1 ea SL Q5MIN PRN #1 bttl 10/04/17 Tramadol HCl 50 mg PO Q8HR PRN #20 tab 08/18/18 Albuterol Sulfate [Proair Hfa] 2 puff INH Q6H PRN 11/26/18 Alprazolam 1 tablet PO PRN PRN 11/26/18 Atorvastatin Calcium [Lipitor] 20 mg PO DAILY 11/26/18 Buspirone HCl 15 mg PO BID 11/26/18 Diclofenac Sodium [Voltaren] 75 mg PO DAILY 11/26/18 Dicyclomine HCl [Dicyclomine Hydrochloride] 20 mg PO TID 11/26/18 Fluconazole 1 tablet PO DAILY 11/26/18 Metoprolol Succinate [Toprol Xl] 25 mg PO BID 11/26/18 Ondansetron [Zuplenz] 4 mg PO PRN PRN 11/26/18 Human Insulin Aspart [Novolog] 10 units SC DAILY 01/14/19 Methocarbamol [Robaxin] 500 - 1,000 mg PO Q6H PRN #20 tab 06/28/19 Tramadol HCl 50 mg PO Q6H PRN #20 tab 06/28/19 Transfer to Outside Facility - Transfer Information Decision to Transfer Date: 12/21/19 Decision to Transfer Time: 11:30 Reason for Transfer: MRI Accepting Facility: [facility]
[2019-12-21 09:41] VITALS: O2SAT 98
--- NOTE | 2019-12-21 10:02 | RAD ---
EXAM:Chest,2 Views CLINICAL INDICATION: Shortness of breath COMPARISON: 08/11/2019 FINDINGS:Two views of the chest were obtained. The heart size is normal. Post-CABG surgical changes are noted. The pulmonary vascularity is unremarkable. The lungs are clear. There is no consolidation, infiltrate, pleural effusion, or pneumothorax. IMPRESSION: No evidence of active pulmonary disease. Electronically signed by: Chandler Goode MD 12/21/2019 10:01 AM CDT
[2019-12-21] MEDS ORDERED: ONDANSETRON INJ 4 MG/2 ML VIAL IV ONE (10:18)
[2019-12-21] MEDS ORDERED: MORPHINE SULFATE INJ 10 MG/ML VIAL IV ONE ×2 (10:18→11:49)
--- NOTE | 2019-12-21 11:27 | CT ---
EXAM: CT Abdomen/Pelvis w/Contrast HISTORY: abdominal pain COMPARISON: CT abdomen/pelvis 11/25/2019 TECHNIQUE: Abdomen/pelvis axial images acquired with IV contrast. Coronal and sagittal reformats created. Exam performed according to departmental dose-optimization program which includes automated exposure control, adjustment of mA and/or kV according to patient size, and/or use of iterative reconstruction technique. FINDINGS: No free air or significant free fluid. Moderate, diffuse, fatty infiltration of liver. Cholecystectomy. Hysterectomy. Spleen, pancreas, adrenals, kidneys, and urinary bladder unremarkable. Small hiatal hernia. Nonopacified small bowel, appendix, and large bowel appear grossly unremarkable. Mild aortoiliofemoral calcified atherosclerosis. Multiple small round bilateral inferior pelvic calcifications likely represent phleboliths. Lower thoracic and lumbosacral spine degenerative disease. IMPRESSION: 1. No CT evidence of acute abdominal/pelvic disease. 2. Small hiatal hernia. 3. Moderate, diffuse, fatty infiltration of liver. 4. Cholecystectomy. 5. Hysterectomy. Electronically signed by: Anthony Jade MD 12/21/2019 11:26 AM CDT
[2019-12-21 12:04] VITALS: BP 192/98; TEMP 98
== END 2019-12-21 12:04 | disposition short-term general hospital (02) ==
LOC: ER 09:21
DX: R15.9 Full incontinence of feces (principal); R10.9 Unspecified abdominal pain; R19.7 Diarrhea, unspecified; M54.40 Lumbago with sciatica, unspecified side; M48.00 Spinal stenosis, site unspecified; R20.0 Anesthesia of skin; I25.10 Atherosclerotic heart disease of native coronary artery without angina pectoris; J45.909 Unspecified asthma, uncomplicated; I10 Essential (primary) hypertension; E11.9 Type 2 diabetes mellitus without complications; K21.9 Gastro-esophageal reflux disease without esophagitis; Z79.899 Other long term (current) drug therapy; Z79.4 Long term (current) use of insulin; Z79.82 Long term (current) use of aspirin
CPT/HCPCS: 36415; 71046; 74177; 80053; 81001; 82270; 83690; 83880; 84484; 85025; 85379; 85610; 85730; 93005; J2270; J2405

== ENCOUNTER → 2020-01-07 | Outpatient (CLI) | payer MEDICARE, MEDICAID | LOC: LAB.O 09:46 | DX: I25.10 Atherosclerotic heart disease of native coronary artery without angina pectoris (principal) ==

== ENCOUNTER 2020-02-12 15:50 | Emergency (ER) | payer MEDICARE, MEDICAID ==
[2020-02-12] MEDS ORDERED: NEOMYCIN-BACITRACIN-POLYMYXIN 0.9 GM UD TOP ONE (16:21)
[2020-02-12 16:22] VITALS: TEMP 96.6; O2SAT 97
[2020-02-12] MEDS ORDERED: SULFA/TRIMETH 800/160 (DS) TAB 1 EA TAB PO ONE (16:24)
[2020-02-12] MEDS ORDERED: TETANUS,DIPHTHERIA,PERTUSSIS 1 EA SYG IM ONE (16:24)
--- NOTE | 2020-02-12 16:27 | ED.PDOC ---
History of Present Illness - General Chief Complaint: Laceration Stated Complaint: Laceration right hand Time Seen by Provider: 02/12/20 16:24 Source: patient Exam Limitations: no limitations - History of Present Illness Initial Comments: Patient is a 64-year-old female presents emergency room secondary to sustaining laceration to the right hand. She grabbed for a broken plate and sustained a 1 cm laceration to the webbing between the second and third digit of the right hand. Neurovascularly intact. No other injuries. She is pleasant and cooperative. Mechanical motion is preserved. Timing/Duration: momentarily Severity: mild Improving Factors: nothing Worsening Factors: nothing Associated Symptoms: denies symptoms Allergies/Adverse Reactions: Allergies NO KNOWN ALLERGY Allergy (Verified 12/21/19 09:42) Home Medications: Ambulatory Orders Aspirin [Aspirin Adult Low Dose] 81 mg PO DAILY 10/05/15 Insulin Detemir [Levemir Pen] 30 unit SUBCU ACBK 10/05/15 Nitroglycerin 0.4 mg Tab [Nitrostat] 1 ea SL Q5MIN PRN #1 bttl 10/04/17 Tramadol HCl 50 mg PO Q8HR PRN #20 tab 08/18/18 Albuterol Sulfate [Proair Hfa] 2 puff INH Q6H PRN 11/26/18 Alprazolam 1 tablet PO PRN PRN 11/26/18 Atorvastatin Calcium [Lipitor] 20 mg PO DAILY 11/26/18 Buspirone HCl 15 mg PO BID 11/26/18 Diclofenac Sodium [Voltaren] 75 mg PO DAILY 11/26/18 Dicyclomine HCl [Dicyclomine Hydrochloride] 20 mg PO TID 11/26/18 Fluconazole 1 tablet PO DAILY 11/26/18 Metoprolol Succinate [Toprol Xl] 25 mg PO BID 11/26/18 Ondansetron [Zuplenz] 4 mg PO PRN PRN 11/26/18 Human Insulin Aspart [Novolog] 10 units SC DAILY 01/14/19 Methocarbamol [Robaxin] 500 - 1,000 mg PO Q6H PRN #20 tab 06/28/19 Tramadol HCl 50 mg PO Q6H PRN #20 tab 06/28/19 Review of Systems - Review of Systems Constitutional: States: no symptoms reported EENTM: States: no symptoms reported Respiratory: States: no symptoms reported Cardiology: States: no symptoms reported Gastrointestinal/Abdominal: States: no symptoms reported Genitourinary: States: no symptoms reported Musculoskeletal: States: no symptoms reported Skin: States: see HPI Neurological: States: no symptoms reported Endocrine: States: no symptoms reported All other Systems: No Change from Baseline Past Medical History (General) - Patient Medical History Hx Seizures: No Hx Stroke: No Hx Dementia: No Hx Asthma: Yes Hx of COPD: No Hx Cardiac Disorders: Yes Hx Congestive Heart Failure: No Hx Pacemaker: No Hx Hypertension: Yes Hx Thyroid Disease: No Hx Diabetes: Yes - POST OP FSBS ORDERED FOR ASU Hx Gastroesophageal Reflux: Yes Hx Renal Disease: No Hx Cancer: No Hx of HIV: No Hx Hepatitis C: No Hx MRSA: No Surgical History: cholecystectomy, Hysterectomy - Vaccination History Hx Tetanus, Diphtheria Vaccination: No Hx Influenza Vaccination: Yes Hx Pneumococcal Vaccination: Yes - Social History Hx Tobacco Use: No Hx Alcohol Use: No Hx Substance Use: No Hx Substance Use Treatment: No Hx Depression: No Hx Physical Abuse: No Hx Emotional Abuse: No - Female History Patient : No Family Medical History - Family History Mother Family History: Unknown Living Status: Age at (years of age): 54 Cause of : heart problems, dm Hx Family Hypertension: Yes Hx Family Stroke: Yes Hx Family Diabetes: Yes - several family members Hx Family Cancer: Yes - liver,lymphoma,breast-several family members Father Living Status: Age at (years of age): 45 Cause of : pneumonia Hx Family Hypertension: Yes Hx Family Diabetes: Yes Physical Exam - Physical Exam General Appearance: Alert, Comfortable, No apparent distress Eye Exam: bilateral normal Ears, Nose, Throat: hearing grossly normal Neck: full range of motion Respiratory: no respiratory distress, no accessory muscle use Cardiovascular/Chest: normal peripheral pulses, no edema Peripheral Pulses: radial,right: 2+, radial,left: 2+ Rectal Exam: deferred Extremity: normal range of motion, non-tender, no pedal edema, normal capillary refill 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 Comments: Vital Signs - 24 hr 02/12/20 16:16 Temperature 96.6 F L Respiratory 18 Rate O2 Sat by Pulse 97 Oximetry Progress - Progress Progress: 02/12/20 16:26 The patient is a 64-year-old female presented emergency room secondary to a laceration to the webbing between the second and third digits of the right hand. After risk and benefits of repair were explained the patient agrees to proceed. Wound is cleaned with hydrogen peroxide. 2 simple sutures of 4-0 Ethilon were placed. Patient tolerated this well and a dressing of Neosporin and a Band-Aid were used. The patient was given a tetanus shot and a dose of Bactrim. She does need to monitor for any evidence of infection. Sutures need to come out in 9 or 10 days. ER warnings are given for any worsening. [id number] Departure - Departure Clinical Impression: Accidental laceration Disposition: Discharge to Home or Self Care Condition: Fair Departure Forms: ED Discharge - Pt. Copy, Patient Portal Self Enrollment Diet: regular diet Activity: increase activity as tolerated Referrals: Carroll Fiore III, MD [Primary Care Provider] - 1-2 Weeks Home Medications: Ambulatory Orders Aspirin [Aspirin Adult Low Dose] 81 mg PO DAILY 10/05/15 Insulin Detemir [Levemir Pen] 30 unit SUBCU ACBK 10/05/15 Nitroglycerin 0.4 mg Tab [Nitrostat] 1 ea SL Q5MIN PRN #1 bttl 10/04/17 Tramadol HCl 50 mg PO Q8HR PRN #20 tab 08/18/18 Albuterol Sulfate [Proair Hfa] 2 puff INH Q6H PRN 11/26/18 Alprazolam 1 tablet PO PRN PRN 11/26/18 Atorvastatin Calcium [Lipitor] 20 mg PO DAILY 11/26/18 Buspirone HCl 15 mg PO BID 11/26/18 Diclofenac Sodium [Voltaren] 75 mg PO DAILY 11/26/18 Dicyclomine HCl [Dicyclomine Hydrochloride] 20 mg PO TID 11/26/18 Fluconazole 1 tablet PO DAILY 11/26/18 Metoprolol Succinate [Toprol Xl] 25 mg PO BID 11/26/18 Ondansetron [Zuplenz] 4 mg PO PRN PRN 11/26/18 Human Insulin Aspart [Novolog] 10 units SC DAILY 01/14/19 Methocarbamol [Robaxin] 500 - 1,000 mg PO Q6H PRN #20 tab 06/28/19 Tramadol HCl 50 mg PO Q6H PRN #20 tab 06/28/19 Additional Instructions: The patient is a 64-year-old female presented emergency room secondary to a laceration to the webbing between the second and third digits of the right hand. After risk and benefits of repair were explained the patient agrees to proceed. Wound is cleaned with hydrogen peroxide. 2 simple sutures of 4-0 Ethilon were placed. Patient tolerated this well and a dressing of Neosporin and a Band-Aid were used. The patient was given a tetanus shot and a dose of Bactrim. She does need to monitor for any evidence of infection. Sutures need to come out in 9 or 10 days. ER warnings are given for any worsening.
[2020-02-12 16:48] VITALS: BP 193/105
== END 2020-02-12 16:40 | disposition home or self-care (01) ==
LOC: ER 15:50
DX: S61.411A Laceration without foreign body of right hand, initial encounter (principal); J45.909 Unspecified asthma, uncomplicated; I10 Essential (primary) hypertension; E11.9 Type 2 diabetes mellitus without complications; K21.9 Gastro-esophageal reflux disease without esophagitis; Z79.4 Long term (current) use of insulin; Z79.82 Long term (current) use of aspirin; W25.XXXA Contact with sharp glass, initial encounter; Y92.9 Unspecified place or not applicable

== ENCOUNTER 2020-03-03 19:11 | Emergency (ER) | payer MEDICARE, MEDICAID ==
[2020-03-03] MEDS ORDERED: traMADol HCL 50 MG TAB PO ONE (19:30)
[2020-03-03] MEDS ORDERED: methylPREDNISolone SODIUM SUC 125 MG/2 ML VIAL IV ONE (19:30)
--- NOTE | 2020-03-03 19:35 | ED.PDOC ---
History of Present Illness - General Chief Complaint: Back Pain or Injury Stated Complaint: right side back pain and abd pain Time Seen by Provider: 03/03/20 19:28 Source: patient, RN notes reviewed, Vital Signs reviewed Exam Limitations: no limitations Additional Information: 64-year-old female presents to the ER because of a 3-day history of right lower quadrant pain it seems like the pain started on her lower back, migrating towards the left lower quadrant area patient has had a chronic history of urinary urgency, denies any dysuria denies nausea vomiting denies any decrease sensation in the lower back is able to ambulate without any difficulty. Patient does have a chronic history of lower back issues, but it gets worse because she has a son at home that she has to carry and lift him Falls or trauma - History of Present Illness Timing/Duration: other - 3 days Quality/Severity: moderate Back Pain Location: lumbar spine Back Pain Radiation: other - right lower quadrant Method of Injury/Prior Injury: unknown, other - lifting Worsening Factors: nothing Associated Symptoms: denies symptoms Allergies/Adverse Reactions: Allergies NO KNOWN ALLERGY Allergy (Verified 12/21/19 09:42) Home Medications: Ambulatory Orders Aspirin [Aspirin Adult Low Dose] 81 mg PO DAILY 10/05/15 Insulin Detemir [Levemir Pen] 30 unit SUBCU ACBK 10/05/15 Nitroglycerin 0.4 mg Tab [Nitrostat] 1 ea SL Q5MIN PRN #1 bttl 10/04/17 Tramadol HCl 50 mg PO Q8HR PRN #20 tab 08/18/18 Albuterol Sulfate [Proair Hfa] 2 puff INH Q6H PRN 11/26/18 Alprazolam 1 tablet PO PRN PRN 11/26/18 Atorvastatin Calcium [Lipitor] 20 mg PO DAILY 11/26/18 Buspirone HCl 15 mg PO BID 11/26/18 Diclofenac Sodium [Voltaren] 75 mg PO DAILY 11/26/18 Dicyclomine HCl [Dicyclomine Hydrochloride] 20 mg PO TID 11/26/18 Fluconazole 1 tablet PO DAILY 11/26/18 Metoprolol Succinate [Toprol Xl] 25 mg PO BID 11/26/18 Ondansetron [Zuplenz] 4 mg PO PRN PRN 11/26/18 Human Insulin Aspart [Novolog] 10 units SC DAILY 01/14/19 Methocarbamol [Robaxin] 500 - 1,000 mg PO Q6H PRN #20 tab 06/28/19 Tramadol HCl 50 mg PO Q6H PRN #20 tab 06/28/19 Cephalexin Monohydrate [Keflex] 500 mg PO BID #14 cap 03/03/20 Methylprednisolone [Medrol Dose Arnold] 4 mg PO DAILY 6 Days #21 tab 03/03/20 Tramadol HCl 50 mg PO Q6HR #20 tab 03/03/20 Review of Systems - Review of Systems Constitutional: States: no symptoms reported EENTM: States: no symptoms reported Respiratory: States: no symptoms reported Cardiology: States: no symptoms reported Gastrointestinal/Abdominal: States: no symptoms reported Genitourinary: States: no symptoms reported Musculoskeletal: States: no symptoms reported Skin: States: no symptoms reported Neurological: States: no symptoms reported Endocrine: States: no symptoms reported Hematologic/Lymphatic: States: no symptoms reported Past Medical History (General) - Patient Medical History Hx Seizures: No Hx Stroke: No Hx Dementia: No Hx Asthma: Yes Hx of COPD: No Hx Cardiac Disorders: Yes Hx Congestive Heart Failure: No Hx Pacemaker: No Hx Hypertension: Yes Hx Thyroid Disease: No Hx Diabetes: Yes - POST OP FSBS ORDERED FOR ASU Hx Gastroesophageal Reflux: Yes Hx Renal Disease: No Hx Cancer: No Hx of HIV: No Hx Hepatitis C: No Hx MRSA: No - Vaccination History Hx Tetanus, Diphtheria Vaccination: No Hx Influenza Vaccination: Yes Hx Pneumococcal Vaccination: Yes - Social History Hx Tobacco Use: No Hx Alcohol Use: No Hx Substance Use: No Hx Substance Use Treatment: No Hx Depression: No Hx Physical Abuse: No Hx Emotional Abuse: No - Female History Patient : No Family Medical History - Family History Mother Family History: Unknown Living Status: Age at (years of age): 54 Cause of : heart problems, dm Hx Family Hypertension: Yes Hx Family Stroke: Yes Hx Family Diabetes: Yes - several family members Hx Family Cancer: Yes - liver,lymphoma,breast-several family members Father Living Status: Age at (years of age): 45 Cause of : pneumonia Hx Family Hypertension: Yes Hx Family Diabetes: Yes Physical Exam - Physical Exam General Appearance: Alert, Well Developed, Well Groomed, Well Hydrated, Well Nourished Eyes, Ears, Nose, Throat Exam: PERRL/EOMI, normal ENT inspection, TMs normal Neck Exam: non-tender, full range of motion, normal alignment, normal inspection Cardiovascular/Respiratory: regular rate, rhythm, no M/R/G, normal peripheral pulses, no JVD, normal breath sounds, no respiratory distress Peripheral Pulses: radial,right: 1+, radial,left: 1+ Gastrointestinal/Abdominal: normal bowel sounds, non tender, soft, no organomegaly, no pulsatile mass Back Exam: other - mid line back tenderness, no step off, no decrease sensation in saddle area and negative straigh leg test Extremity Exam: no evidence of injury 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 Ct Show evidence of chronic back changes without any evidence of acute cord compression, and abdominal pelvic CT did not show any intra-abdominal abnormalities, patient does have a urinalysis consistent with UTI did receive a dose of IV Rocephin and will be discharged home with Keflex The ER immediately for any severe back pain unable to walk due to back pain tingling sensation in the lower extremities fever chills nausea vomiting abdominal pain blood in the urine blood in the stools diarrhea unwanted weight loss decreased oral intake unable to monitor fluids 03/03/20 21:00 Departure - Departure Clinical Impression: Back pain Qualifiers: Back pain location: low back pain Chronicity: chronic Back pain laterality: midline Sciatica presence: without sciatica Qualified Code(s): M54.5 - Low back pain; G89.29 - Other chronic pain Urinary tract infection Qualifiers: Urinary tract infection type: site unspecified Hematuria presence: without hematuria Qualified Code(s): N39.0 - Urinary tract infection, site not specified Disposition: Discharge to Home or Self Care Condition: Fair Departure Forms: ED Discharge - Pt. Copy, Patient Portal Self Enrollment Instructions: DI for Low Back Pain, Low Back Pain (DC), Urinary Tract Infections in Adults Diet: resume usual diet Referrals: Carroll Fiore III, MD [Primary Care Provider] - 1-2 Weeks Prescriptions: Tramadol HCl 50 mg PO Q6HR #20 tab Cephalexin Monohydrate [Keflex] 500 mg PO BID #14 cap Methylprednisolone [Medrol Dose Arnold] 4 mg PO DAILY 6 Days #21 tab Home Medications: Ambulatory Orders Aspirin [Aspirin Adult Low Dose] 81 mg PO DAILY 10/05/15 Insulin Detemir [Levemir Pen] 30 unit SUBCU ACBK 10/05/15 Nitroglycerin 0.4 mg Tab [Nitrostat] 1 ea SL Q5MIN PRN #1 bttl 10/04/17 Tramadol HCl 50 mg PO Q8HR PRN #20 tab 08/18/18 Albuterol Sulfate [Proair Hfa] 2 puff INH Q6H PRN 11/26/18 Alprazolam 1 tablet PO PRN PRN 11/26/18 Atorvastatin Calcium [Lipitor] 20 mg PO DAILY 11/26/18 Buspirone HCl 15 mg PO BID 11/26/18 Diclofenac Sodium [Voltaren] 75 mg PO DAILY 11/26/18 Dicyclomine HCl [Dicyclomine Hydrochloride] 20 mg PO TID 11/26/18 Fluconazole 1 tablet PO DAILY 11/26/18 Metoprolol Succinate [Toprol Xl] 25 mg PO BID 11/26/18 Ondansetron [Zuplenz] 4 mg PO PRN PRN 11/26/18 Human Insulin Aspart [Novolog] 10 units SC DAILY 01/14/19 Methocarbamol [Robaxin] 500 - 1,000 mg PO Q6H PRN #20 tab 06/28/19 Tramadol HCl 50 mg PO Q6H PRN #20 tab 06/28/19 Cephalexin Monohydrate [Keflex] 500 mg PO BID #14 cap 03/03/20 Methylprednisolone [Medrol Dose Arnold] 4 mg PO DAILY 6 Days #21 tab 03/03/20 Tramadol HCl 50 mg PO Q6HR #20 tab 03/03/20 Additional Instructions: ER immediately for any severe back pain unable to walk due to back pain tingling sensation in the lower extremities fever chills nausea vomiting abdominal pain blood in the urine blood in the stools diarrhea unwanted weight loss decreased oral intake unable to monitor fluids
[2020-03-03 19:37] VITALS: O2SAT 99
[2020-03-03] MEDS ORDERED: cefTRIAXone SODIUM 1 GM in SODIUM CHL 0.9% 50ML MIN-BAG+ 50 ML IVPB ONE (20:22)
--- NOTE | 2020-03-03 20:37 | CT ---
PROCEDURE: CT ABDOMEN PELVIS WITH IV CONTRAST CLINICAL HISTORY: right lower quadrant pain TECHNIQUE: Contiguous axial images obtained through the abdomen and pelvis following the uneventful administration of IV contrast. Coronal and sagittal reformatted images were provided. This exam was performed according to our departmental dose-optimization program, which includes automated exposure control, adjustment of the mA and/or kV according to patient size and/or use of iterative reconstruction technique. COMPARISON: 12/21/2019 FINDINGS: Lung bases: Left basilar subsegmental atelectasis/pleural parenchymal scar. The heart is mildly enlarged. Coronary artery calcification. Small hiatal hernia. Liver: The liver is enlarged and diffusely low in density compatible with steatosis. Gallbladder and biliary system: Prior cholecystectomy. Pancreas: Unremarkable Spleen: Unremarkable Adrenals: Unremarkable Kidneys: Normal renal cortical enhancement. No calculi. No hydronephrosis. Bowel: No obstruction. No appreciable mucosal thickening. Appendix: Normal caliber appendix. No findings to suggest acute appendicitis. Urinary bladder: The urinary bladder is decompressed. Reproductive: There has been a hysterectomy. No adnexal cysts or masses are identified. Lymph nodes: No pathologically enlarged lymph nodes. Peritoneum: No focal fluid collection. No free air. Vessels: Mild atherosclerotic disease. No abdominal aortic aneurysm. Abdominal wall: Tiny fat-containing umbilical hernia. Bones: Multilevel spondylosis. No acute fracture. IMPRESSION: 1. No acute abnormality identified within the abdomen and pelvis. 2. Other findings as above. Electronically signed by: Sunni Rawls MD 03/03/2020 8:35 PM [employer] MACHINE TENDER
--- NOTE | 2020-03-03 20:42 | CT ---
PROCEDURE: CT LUMBAR SPINE WITHOUT IV CONTRAST CLINICAL HISTORY: back pain TECHNIQUE: Contiguous axial CT images obtained through the lumbar spine without IV contrast. Coronal and sagittal reformatted images also provided. This exam was performed according to our departmental dose-optimization program, which includes automated exposure control, adjustment of the mA and/or kV according to patient size and/or use of iterative reconstruction technique. COMPARISON: None available for comparison FINDINGS: Vertebra: There are 5 nonrib-bearing lumbar-type vertebral bodies. Minimal grade 1 retrolisthesis of L1 on L2. No acute or remote fracture deformity. No subluxation. Disc spaces: Moderate multilevel degenerative changes manifested by moderate disc degeneration, vacuum disc phenomenon, endplate changes, small to moderate anterior and lateral disc osteophytes, mild broad-based disc bulges and moderate facet arthropathy most pronounced at the lower lumbar spine. The central thecal sac is mildly narrowed at L3-L4. Soft tissues: Unremarkable IMPRESSION: Moderate multilevel degenerative changes. The central thecal sac is mildly narrowed at L3-L4. No critical canal stenosis. Electronically signed by: Sunni Rawls MD 03/03/2020 8:40 PM [facility]
[2020-03-03 21:14] VITALS: BP 175/87; TEMP 97.4
== END 2020-03-03 21:14 | disposition home or self-care (01) ==
LOC: ER 19:11
DX: N39.0 Urinary tract infection, site not specified (principal); M54.5 Low back pain; G89.29 Other chronic pain; I10 Essential (primary) hypertension; I51.9 Heart disease, unspecified; J45.909 Unspecified asthma, uncomplicated; Z79.899 Other long term (current) drug therapy; Z79.4 Long term (current) use of insulin; Z79.82 Long term (current) use of aspirin
CPT/HCPCS: 36415; 72131; 74177; 80053; 81001; 85025; 87086; J0696; J2930; J7050

== ENCOUNTER 2020-04-05 19:34 | Emergency (ER) | payer MEDICARE, MEDICAID ==
[2020-04-05 19:56] VITALS: TEMP 97.1
--- NOTE | 2020-04-05 19:57 | ED.PDOC ---
History of Present Illness - General Chief Complaint: Chest Pain/ME Stated Complaint: CP x's 1 wk ran out of nitro, right foot pain Time Seen by Provider: 04/05/20 19:37 Source: patient Exam Limitations: no limitations - History of Present Illness Initial Comments: PATIENT PRESENTS C/O CONTINUOUS RIGHT CHEST PRESSURE FOR A WEEK. SHE HAS A VERY CONTENTIOUS RELATIONSHIP WITH FAMILY MEMBERS, PARTICULARLY DURING THE HOLIDAYS. SHE STATES SHE IS HAVING A LOT OF STRESS FROM THIS. DENIES OTHER SYMPTOMS AT PRESENT. PMHX OF CABG 2016, LAST HEART CATH THEN, LAST STRESS TEST 1 YEAR AGO. Severity/Quality: severe Location: substernal Chest Pain Radiation: back Activities at Onset: none Improving Factors: nothing Worsening Factors: nothing Nitro Today/Relief: no nitro taken today Associated Symptoms: denies symptoms Allergies/Adverse Reactions: Allergies NO KNOWN ALLERGY Allergy (Verified 12/21/19 09:42) Home Medications: Ambulatory Orders Aspirin [Aspirin Adult Low Dose] 81 mg PO DAILY 10/05/15 Insulin Detemir [Levemir Pen] 30 unit SUBCU ACBK 10/05/15 Nitroglycerin 0.4 mg Tab [Nitrostat] 1 ea SL Q5MIN PRN #1 bttl 10/04/17 Tramadol HCl 50 mg PO Q8HR PRN #20 tab 08/18/18 Albuterol Sulfate [Proair Hfa] 2 puff INH Q6H PRN 11/26/18 Alprazolam 1 tablet PO PRN PRN 11/26/18 Atorvastatin Calcium [Lipitor] 20 mg PO DAILY 11/26/18 Buspirone HCl 15 mg PO BID 11/26/18 Diclofenac Sodium [Voltaren] 75 mg PO DAILY 11/26/18 Dicyclomine HCl [Dicyclomine Hydrochloride] 20 mg PO TID 11/26/18 Fluconazole 1 tablet PO DAILY 11/26/18 Metoprolol Succinate [Toprol Xl] 25 mg PO BID 11/26/18 Ondansetron [Zuplenz] 4 mg PO PRN PRN 11/26/18 Human Insulin Aspart [Novolog] 10 units SC DAILY 01/14/19 Methocarbamol [Robaxin] 500 - 1,000 mg PO Q6H PRN #20 tab 06/28/19 Tramadol HCl 50 mg PO Q6H PRN #20 tab 06/28/19 Cephalexin Monohydrate [Keflex] 500 mg PO BID #14 cap 03/03/20 Methylprednisolone [Medrol Dose Arnold] 4 mg PO DAILY 6 Days #21 tab 03/03/20 Tramadol HCl 50 mg PO Q6HR #20 tab 03/03/20 Review of Systems - Review of Systems Constitutional: States: no symptoms reported EENTM: States: no symptoms reported Respiratory: States: short of breath. Denies: cough Cardiology: States: see HPI. Denies: edema, palpitations, syncope Gastrointestinal/Abdominal: States: diarrhea - CHRONIC. Denies: abdominal pain, nausea, vomiting Genitourinary: Denies: discharge, dysuria, frequency Musculoskeletal: States: no symptoms reported Skin: States: no symptoms reported Neurological: States: no symptoms reported Endocrine: States: no symptoms reported Past Medical History (General) - Patient Medical History Hx Seizures: No Hx Stroke: No Hx Dementia: No Hx Asthma: Yes Hx of COPD: No Hx Cardiac Disorders: Yes Hx Congestive Heart Failure: No Hx Pacemaker: No Hx Hypertension: Yes Hx Thyroid Disease: No Hx Diabetes: Yes - POST OP FSBS ORDERED FOR ASU Hx Gastroesophageal Reflux: Yes Hx Renal Disease: No Hx Cancer: No Hx of HIV: No Hx Hepatitis C: No Hx MRSA: No - Vaccination History Hx Tetanus, Diphtheria Vaccination: No Hx Influenza Vaccination: Yes Hx Pneumococcal Vaccination: Yes - Social History Hx Tobacco Use: No Hx Chewing Tobacco Use: No Hx Alcohol Use: No Hx Substance Use: No Hx Substance Use Treatment: No Hx Depression: No Hx Physical Abuse: No Hx Emotional Abuse: No Hx Suspected Abuse: No - Female History Patient : No Family Medical History - Family History Mother Family History: Unknown Living Status: Age at (years of age): 54 Cause of : heart problems, dm Hx Family Hypertension: Yes Hx Family Stroke: Yes Hx Family Diabetes: Yes - several family members Hx Family Cancer: Yes - liver,lymphoma,breast-several family members Father Living Status: Age at (years of age): 45 Cause of : pneumonia Hx Family Hypertension: Yes Hx Family Diabetes: Yes Physical Exam - Physical Exam General Appearance: Alert, Anxious, Other - TEARFUL WHEN DISCUSSING HER STRESSFUL RELATIONSHIPS Neck: non-tender, full range of motion, supple Respiratory: chest non-tender, lungs clear, normal breath sounds, no respiratory distress, no accessory muscle use Cardiovascular/Chest: normal peripheral pulses, regular rate, rhythm, no edema, no gallop, no JVD, no murmur Gastrointestinal/Abdominal: normal bowel sounds, non tender, soft, no organomegaly 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 MOST LIKELY SYMPTOMS DRIVEN BY OTHER ISSUES. Departure - Departure Clinical Impression: Non-cardiac chest pain Time of Disposition: 20:55 Disposition: Discharge to Home or Self Care Condition: Good Departure Forms: ED Discharge - Pt. Copy, Patient Portal Self Enrollment Instructions: DI for Chest Pain, Chest Pain That Is Not Caused by the Heart (DC) Referrals: Carroll Fiore III, MD [Primary Care Provider] - 1-2 Weeks Home Medications: Ambulatory Orders Aspirin [Aspirin Adult Low Dose] 81 mg PO DAILY 10/05/15 Insulin Detemir [Levemir Pen] 30 unit SUBCU ACBK 10/05/15 Nitroglycerin 0.4 mg Tab [Nitrostat] 1 ea SL Q5MIN PRN #1 bttl 10/04/17 Tramadol HCl 50 mg PO Q8HR PRN #20 tab 08/18/18 Albuterol Sulfate [Proair Hfa] 2 puff INH Q6H PRN 11/26/18 Alprazolam 1 tablet PO PRN PRN 11/26/18 Atorvastatin Calcium [Lipitor] 20 mg PO DAILY 11/26/18 Buspirone HCl 15 mg PO BID 11/26/18 Diclofenac Sodium [Voltaren] 75 mg PO DAILY 11/26/18 Dicyclomine HCl [Dicyclomine Hydrochloride] 20 mg PO TID 11/26/18 Fluconazole 1 tablet PO DAILY 11/26/18 Metoprolol Succinate [Toprol Xl] 25 mg PO BID 11/26/18 Ondansetron [Zuplenz] 4 mg PO PRN PRN 11/26/18 Human Insulin Aspart [Novolog] 10 units SC DAILY 01/14/19 Methocarbamol [Robaxin] 500 - 1,000 mg PO Q6H PRN #20 tab 06/28/19 Tramadol HCl 50 mg PO Q6H PRN #20 tab 06/28/19 Cephalexin Monohydrate [Keflex] 500 mg PO BID #14 cap 03/03/20 Methylprednisolone [Medrol Dose Arnold] 4 mg PO DAILY 6 Days #21 tab 03/03/20 Tramadol HCl 50 mg PO Q6HR #20 tab 03/03/20 Additional Instructions: SCHEDULE FOLLOW UP WITH YOUR PCP, DISCUSS YOUR MEDICATIONS. CONSIDER GETTING ANOTHER NUCLEAR STRESS DONE BY YOUR CHAIRMAN CEO. CONTACT YOUR CHAIRMAN CEO TO GET FOLLOW UP APPOINTMENT FOR RUPAL TO DISCUSS.
--- NOTE | 2020-04-05 20:16 | RAD ---
EXAM DESCRIPTION: Chest,1 View 04/05/2020 8:14 PM [facility]S CODER CLINICAL HISTORY: 65 years, Female, chest pain x's 1 week COMPARISON: 12/21/2019. FINDINGS: Single view of the chest was obtained portable. Prior films were compared. External EKG leads within the field of view limits diagnosis. The cardiomediastinal silhouette demonstrate to be unremarkable. The heart is not enlarged. The thoracic aorta the most rate minimal intimal consultation. Sternotomy wires pericardial clips and saphenous graft markers correspond to previous CABG. The pulmonary vasculature is normal in distribution. Costophrenic angles are sharp. No areas of consolidation or masses are seen. The rest of the soft tissue and bony structures demonstrate to be unremarkable. IMPRESSION: STATUS POST CABG. NO ACUTE CARDIOPULMONARY DISEASE SEEN. Electronically signed by: Carroll Lozano MD 04/05/2020 8:14 PM HIMS CODER
[2020-04-05 20:58] VITALS: BP 158/65; O2SAT 98
[2020-04-05] MEDS ORDERED: ACETAMINOPHEN 500 MG TAB PO ONE (20:58)
== END 2020-04-05 21:09 | disposition home or self-care (01) ==
LOC: ER 19:34
DX: R07.89 Other chest pain (principal); J45.909 Unspecified asthma, uncomplicated; I51.9 Heart disease, unspecified; I10 Essential (primary) hypertension; E11.9 Type 2 diabetes mellitus without complications; Z79.82 Long term (current) use of aspirin; Z79.84 Long term (current) use of oral hypoglycemic drugs; Z79.899 Other long term (current) drug therapy

== ENCOUNTER 2020-04-25 18:15 | Emergency (ER) | payer MEDICARE, MEDICAID ==
--- NOTE | 2020-04-25 18:26 | ED.PDOC ---
History of Present Illness - General Time Seen by Provider: 04/25/20 18:18 Source: patient, RN notes reviewed, Vital Signs reviewed, old records Exam Limitations: no limitations - History of Present Illness Initial Comments: 65 yo pleasant F with hx CAD comes in with three days of shortness of breath, pleurtic chest pain, nausea and loose stools. Denies cough, fever or sore throat. no known exposure to covid. no black or bloody bm. patient under a lot of stress because son two [place] ago and this is a hard time of the year for patient. Also raising grandchildren, which is additive stress. Timing/Duration: intermittent Allergies/Adverse Reactions: Allergies NO KNOWN ALLERGY Allergy (Verified 04/25/20 18:41) Home Medications: Ambulatory Orders Aspirin [Aspirin Adult Low Dose] 81 mg PO DAILY 10/05/15 Insulin Detemir [Levemir Pen] 30 unit SUBCU ACBK 10/05/15 Nitroglycerin 0.4 mg Tab [Nitrostat] 1 ea SL Q5MIN PRN #1 bttl 10/04/17 Tramadol HCl 50 mg PO Q8HR PRN #20 tab 08/18/18 Albuterol Sulfate [Proair Hfa] 2 puff INH Q6H PRN 11/26/18 Alprazolam 1 tablet PO PRN PRN 11/26/18 Atorvastatin Calcium [Lipitor] 20 mg PO DAILY 11/26/18 Buspirone HCl 15 mg PO BID 11/26/18 Diclofenac Sodium [Voltaren] 75 mg PO DAILY 11/26/18 Dicyclomine HCl [Dicyclomine Hydrochloride] 20 mg PO TID 11/26/18 Fluconazole 1 tablet PO DAILY 11/26/18 Metoprolol Succinate [Toprol Xl] 25 mg PO BID 11/26/18 Ondansetron [Zuplenz] 4 mg PO PRN PRN 11/26/18 Human Insulin Aspart [Novolog] 10 units SC DAILY 01/14/19 Methocarbamol [Robaxin] 500 - 1,000 mg PO Q6H PRN #20 tab 06/28/19 Tramadol HCl 50 mg PO Q6H PRN #20 tab 06/28/19 Cephalexin Monohydrate [Keflex] 500 mg PO BID #14 cap 03/03/20 Methylprednisolone [Medrol Dose Arnold] 4 mg PO DAILY 6 Days #21 tab 03/03/20 Tramadol HCl 50 mg PO Q6HR #20 tab 03/03/20 Acetaminophen W/ Codeine [Tylenol W/ CODEINE #3] 1 ea PO Q8H PRN #15 ea 04/25/20 Ondansetron HCl [Zofran] 4 mg PO TID PRN #15 tab 04/25/20 Review of Systems - Review of Systems Constitutional: States: malaise. Denies: chills, fever EENTM: States: nose congestion. Denies: blurred vision, throat pain Respiratory: States: short of breath. Denies: cough, orthopnea, wheezing Cardiology: States: chest pain. Denies: palpitations, syncope Gastrointestinal/Abdominal: States: diarrhea, nausea. Denies: abdominal pain, vomiting Genitourinary: Denies: frequency, hematuria Musculoskeletal: Denies: back pain, muscle pain Skin: Denies: rash Neurological: Denies: headache, numbness, paresthesia, weakness Endocrine: Denies: unexplained weight gain, unexplained weight loss Hematologic/Lymphatic: Denies: easy bleeding, easy bruising Past Medical History (General) - Patient Medical History Hx Seizures: No Hx Stroke: No Hx Dementia: No Hx Asthma: Yes Hx of COPD: No Hx Cardiac Disorders: Yes Hx Congestive Heart Failure: No Hx Pacemaker: No Hx Hypertension: Yes Hx Thyroid Disease: No Hx Diabetes: Yes - POST OP FSBS ORDERED FOR ASU Hx Gastroesophageal Reflux: Yes Hx Renal Disease: No Hx Cancer: No Hx of HIV: No Hx Hepatitis C: No Hx MRSA: No - Vaccination History Hx Tetanus, Diphtheria Vaccination: No Hx Influenza Vaccination: Yes Hx Pneumococcal Vaccination: Yes - Social History Hx Tobacco Use: No Hx Chewing Tobacco Use: No Hx Alcohol Use: No Hx Substance Use: No Hx Substance Use Treatment: No Hx Depression: No Hx Physical Abuse: No Hx Emotional Abuse: No Hx Suspected Abuse: No - Female History Patient : No Family Medical History - Family History Mother Family History: Unknown Living Status: Age at (years of age): 54 Cause of : heart problems, dm Hx Family Hypertension: Yes Hx Family Stroke: Yes Hx Family Diabetes: Yes - several family members Hx Family Cancer: Yes - liver,lymphoma,breast-several family members Father Living Status: Age at (years of age): 45 Cause of : pneumonia Hx Family Hypertension: Yes Hx Family Diabetes: Yes Physical Exam - Physical Exam General Appearance: Alert, Comfortable, No apparent distress, Well Developed, Well Groomed, Well Hydrated, Well Nourished Eye Exam: bilateral normal Ears, Nose, Throat: hearing grossly normal, normal ENT inspection, normal pharynx Neck: non-tender, full range of motion, supple, normal inspection Respiratory: chest non-tender, lungs clear, normal breath sounds, no respiratory distress, no accessory muscle use Cardiovascular/Chest: normal peripheral pulses, regular rate, rhythm, no edema, no gallop, no JVD, no murmur, other - midline scar noted Peripheral Pulses: radial,right: 2+, radial,left: 2+ Gastrointestinal/Abdominal: normal bowel sounds, non tender, soft, no organomegaly, no pulsatile mass Rectal Exam: deferred Back Exam: normal inspection, no CVA tenderness, no vertebral tenderness Extremity: normal range of motion, non-tender, normal inspection, no pedal edema, no calf tenderness, normal capillary refill Neurologic: no motor/sensory deficits, alert, normal mood/affect, oriented x 3 Skin Exam: normal color, warm/dry Progress - Progress Progress: 04/25/20 21:22 patient given 1 L NS bolus and 15 units subq insulin. Given some toradol for pain. Pain improved. SYmptoms resolved. repeat glucose 239. The data reviewed when caring for this patient included: nurse notes, prior records, etc. The history and assessments from nurses notes were reviewed and considered, and the patient's home medication list was also reviewed and considered. My assessment and the results of testing completed here in the ED were discussed with the patient. All questions were answered, and they express understanding of my assessment and the plan. They have been instructed to return if their symptoms worsen, and have been asked to follow up with their primary care physician to recheck today's presenting complaint. Strict return precautions given. I have reviewed medication, benefits, alternatives and side effects. Patient decided to proceed with medication. Diane Dent DO #[id number] - Results/Orders Results/Orders: 04/25/20 19:30 EKG STAT 04/25/20 19:34 URINALYSIS Stat Laboratory Results WBC 6.6 K/mm3 (4.8-10.8) 04/25/20 18:32 RBC 4.90 M/mm3 (4.20-5.40) 04/25/20 18:32 Hgb 13.7 gm/dL (12.0-16.0) 04/25/20 18:32 Hct 41.0 % (36.0-47.0) 04/25/20 18:32 MCV 83.8 fl (81.0-99.0) 04/25/20 18:32 MCH 28.0 pg (27.0-31.0) 04/25/20 18: MCHC 33.4 g/dL (33.0-37.0) 04/25/20 18: RDW 12.6 % (11.5-14.5) 04/25/20 18: Plt Count 235 K/mm3 (130-400) 04/25/20 18:32 MPV 8.6 fl (7.40-10.4) 04/25/20 18:32 Absolute Neuts (auto) 4.20 K/uL (1.8-6.8) 04/25/20 18:32 Absolute Lymphs (auto) 1.80 K/uL (1.0-3.4) 04/25/20 18:32 Absolute Monos (auto) 0.40 K/uL (0.2-0.8) 04/25/20 18: Absolute Eos (auto) 0.10 K/uL (0.0-0.4) 04/25/20 18:32 Absolute Basos (auto) 0.10 K/uL (0.0-0.1) 04/25/20 18:32 Neutrophils % 63.8 % (42.0-78.0) 04/25/20 18:32 Lymphocytes % 27.7 % (20.0-50.0) 04/25/20 18:32 Monocytes % 5.3 % (2.0-9.0) 04/25/20 18: Eosinophils % 2.1 % (1.0-5.0) 04/25/20 18: Basophils % 1.1 % (0.0-2.0) 04/25/20 18:32 Sodium 133 mmol/L (135-145) L 04/25/20 18:32 Potassium 3.7 mmol/L (3.6-5.0) 04/25/20 18:32 Chloride 97 mmol/L (101-111) L 04/25/20 18:32 Carbon Dioxide 24 mmol/L (21-31) 04/25/20 18:32 Anion Gap 15.7 (12-18) 04/25/20 18:32 BUN 21 mg/dL (7-18) H 04/25/20 18:32 Creatinine 0.58 mg/dL (0.6-1.3) L 04/25/20 18:32 BUN/Creatinine Ratio 36.2 (10-20) H 04/25/20 18:32 POC Glucose 239 mg/dL (70-105) H 04/25/20 20:50 Random Glucose 410 mg/dL (70-105) H* 04/25/20 18:32 Serum Osmolality 287.3 mOsm/L (275-295) 04/25/20 18:32 Calcium 8.9 mg/dL (8.4-10.2) 04/25/20 18:32 Total Bilirubin 0.7 mg/dL (0.2-1.0) 04/25/20 18:32 AST 16 IU/L (10-42) 04/25/20 18:32 ALT 22 IU/L (10-60) 04/25/20 18:32 Alkaline Phosphatase 105 IU/L (42-121) 04/25/20 18:32 Troponin I < 0.02 ng/mL (0.01-0.05) 04/25/20 18:32 B-Natriuretic Peptide 17.2 pg/ml (0-100) 04/25/20 18:32 Serum Total Protein 7.2 gm/dL (6.4-8.2) 04/25/20 18:32 Albumin 3.9 g/dl (3.2-5.5) 04/25/20 18:32 Globulin 3.3 gm/dL (2.3-3.5) 04/25/20 18:32 Albumin/Globulin Ratio 1.2 (1.1-1.9) 04/25/20 18:32 Lipase 70 U/L (22-51) H 04/25/20 18:32 Serum Ketones Negative 04/25/20 19:18 - EKG/XRAY/CT EKG: Sinus - 81, nonspecific ST T wave Chg Comments: q waves in inferior leads, no sign change from previous XRAY: chest - no acute pathology Departure - Departure Clinical Impression: Hyperglycemia, Pleuritic chest pain Time of Disposition: 21:12 Disposition: Discharge to Home or Self Care Instructions: Pleuritic Chest Pain, Hyperglycemia, Adult (DC) Diet: diabetic diet Activity: increase activity as tolerated Referrals: Carroll Fiore III, MD [Primary Care Provider] - 1-2 Days Prescriptions: Acetaminophen W/ Codeine [Tylenol W/ CODEINE #3] 1 ea PO Q8H PRN #15 ea PRN Reason: Pain Ondansetron HCl [Zofran] 4 mg PO TID PRN #15 tab PRN Reason: Vomiting Home Medications: Ambulatory Orders Aspirin [Aspirin Adult Low Dose] 81 mg PO DAILY 10/05/15 Insulin Detemir [Levemir Pen] 30 unit SUBCU ACBK 10/05/15 Nitroglycerin 0.4 mg Tab [Nitrostat] 1 ea SL Q5MIN PRN #1 bttl 10/04/17 Tramadol HCl 50 mg PO Q8HR PRN #20 tab 08/18/18 Albuterol Sulfate [Proair Hfa] 2 puff INH Q6H PRN 11/26/18 Alprazolam 1 tablet PO PRN PRN 11/26/18 Atorvastatin Calcium [Lipitor] 20 mg PO DAILY 11/26/18 Buspirone HCl 15 mg PO BID 11/26/18 Diclofenac Sodium [Voltaren] 75 mg PO DAILY 11/26/18 Dicyclomine HCl [Dicyclomine Hydrochloride] 20 mg PO TID 11/26/18 Fluconazole 1 tablet PO DAILY 11/26/18 Metoprolol Succinate [Toprol Xl] 25 mg PO BID 11/26/18 Ondansetron [Zuplenz] 4 mg PO PRN PRN 11/26/18 Human Insulin Aspart [Novolog] 10 units SC DAILY 01/14/19 Methocarbamol [Robaxin] 500 - 1,000 mg PO Q6H PRN #20 tab 06/28/19 Tramadol HCl 50 mg PO Q6H PRN #20 tab 06/28/19 Cephalexin Monohydrate [Keflex] 500 mg PO BID #14 cap 03/03/20 Methylprednisolone [Medrol Dose Arnold] 4 mg PO DAILY 6 Days #21 tab 03/03/20 Tramadol HCl 50 mg PO Q6HR #20 tab 03/03/20 Acetaminophen W/ Codeine [Tylenol W/ CODEINE #3] 1 ea PO Q8H PRN #15 ea 04/25/20 Ondansetron HCl [Zofran] 4 mg PO TID PRN #15 tab 04/25/20
[2020-04-25 18:42] VITALS: O2SAT 95
--- NOTE | 2020-04-25 19:13 | RAD ---
EXAM DESCRIPTION: Chest,1 View 04/25/2020 7:10 PM [employer] COORDINATOR CLINICAL HISTORY: 65 years, Female, cp COMPARISON: 04/05/2020. FINDINGS: Single view of the chest was obtained portable. Prior films were compared. Sternotomy wires, pericardiac clips and saphenous graft markers correspond to recent CABG The cardiomediastinal silhouette demonstrate to be unremarkable. . The heart is not enlarged. The thoracic aorta demonstrate to be unremarkable. Costophrenic angles are sharp. No areas of consolidation or masses are seen. The rest of the soft tissue and bony structures demonstrate to be unremarkable. IMPRESSION: STATUS POST CABG. NO ACUTE CARDIOPULMONARY DISEASE SEEN. Electronically signed by: Carroll Lozano MD 04/25/2020 7:11 PM [employer] COORDIN[employer]
[2020-04-25] MEDS ORDERED: SODIUM CHLORIDE 0.9% 1000ML 1,000 ML IVS ONE (19:18)
[2020-04-25] MEDS ORDERED: ONDANSETRON INJ 4 MG/2 ML VIAL IV ONE (19:28)
[2020-04-25] MEDS ORDERED: INSULIN, REG.(HUMAN) 100 U/ML VIAL SUBCU ONE (19:33)
[2020-04-25] MEDS ORDERED: KETOROLAC TROMETHAMINE INJ 30 MG/ML VIAL IV ONE (20:50)
[2020-04-25 21:34] VITALS: BP 169/95; TEMP 97.3
== END 2020-04-25 21:25 | disposition home or self-care (01) ==
LOC: ER 18:15
DX: R07.1 Chest pain on breathing (principal); E11.65 Type 2 diabetes mellitus with hyperglycemia; R06.02 Shortness of breath; R11.0 Nausea; R19.7 Diarrhea, unspecified; I25.10 Atherosclerotic heart disease of native coronary artery without angina pectoris; K21.9 Gastro-esophageal reflux disease without esophagitis; J45.909 Unspecified asthma, uncomplicated; I10 Essential (primary) hypertension; Z79.899 Other long term (current) drug therapy; Z79.4 Long term (current) use of insulin; Z79.82 Long term (current) use of aspirin; Z20.828 Contact with and (suspected) exposure to other viral communicable diseases
CPT/HCPCS: 71045; 80053; 82009; 82948; 83690; 83880; 84484; 85025; 87486; 87581; 87633; 87635; 93005; J1885; J2405; J7030